=== PATIENT | female | born 1940 | race Caucasian/White ===

== ENCOUNTER → 2016-03-23 | Outpatient (CLI) | payer BC ==
[~2016-03-23] MED LIST: ASPCH81; ASPI81TA28 PO; ATOR-22 PO; CALC-342 PO; FLNIN NAE; FLUT0.15 NAE; LEVO75TA PO; LSN25 PO; MELO7.5T6 PO; METO50TA16 PO; MULT-506 PO; PLV75 PO
== END | disposition home or self-care (01) ==
LOC: C.LABSPEC 12:45
PROVIDERS: ATTEND Internal Medicine
DX: D64.9 Anemia, unspecified (principal)

== ENCOUNTER → 2016-06-02 | Outpatient (CLI) | payer BC ==
--- NOTE | 2016-06-02 14:00 | MAMMOGRAPHY REPORT ---
BILATERAL DIGITAL SCREENING MAMMOGRAM WITH CAD: 06/02/2016 CLINICAL HISTORY: Routine screening. Patient has no complaints. TECHNIQUE: Bilateral CC and MLO views were obtained. Current study was also evaluated with a Compu ter Aided Detection (CAD) system. COMPARISON: Comparison is made to exams dated: 05/31/2015 mammogram, 05/26/2013 mammogram, 05/29/2014 ma mmogram, 04/12/2010 mammogram, 04/09/2009 mammogram - [facility], and 04/06/2008. BREAST COMPOSITION: There are scattered areas of fibroglandular density in both breasts. FINDINGS: There are moderate vascular calcifications in the breasts. No suspicious mass, architectu ral distortion or cluster of microcalcifications is seen. IMPRESSION: ACR BI-RADS CATEGORY 1: NEGATIVE There is no mammographic evidence of malignancy. A 1 year screening mammogram is recommended. The p atient will receive written notification of the results. Approximately 10% of breast cancers are not detected with mammography. A negative mammographic repor t should not delay biopsy if a clinically suggestive mass is present. Johanne Nolan M.D. ay/:06/02/2016 12:31:02 Copying Machine Repairer: Kadie CUI(R)(M), [facility] letter sent: Normal 1/2 BI-RADS Code: ACR BI-RADS Category 1: Negative
== END | disposition home or self-care (01) ==
LOC: C.MAMM 10:22
PROVIDERS: ATTEND Internal Medicine
DX: Z12.31 Encounter for screening mammogram for malignant neoplasm of breast (principal)

== ENCOUNTER → 2016-07-08 | Outpatient (CLI) | payer BC ==
[2016-07-08 12:07] LABS: BASO % 0.6 %; BASO ABS # 0.03 K/uL (0-0.2); COMPLETE YES; EOS % 1.6 %; LYMPH % 35.2 %; LYMPH ABS # 1.73 K/uL (1.2-3.4); MEAN CELL VOLUME 93.1 fL (80-100); MEAN CORPUSCULAR HGB CONC 33.3 g/dl (32-36); MEAN PLATELET VOLUME 11.1 fL (7.4-10.4); MONO % 9.6 %; PLATELET COUNT 176 K/uL (130-400); RED BLOOD COUNT 4.19 M/uL (4.2-5.4); WHITE BLOOD COUNT 4.91 K/uL (4.8-10.8)
== END | disposition home or self-care (01) ==
LOC: C.LABBFT 08:30
PROVIDERS: ATTEND Internal Medicine
DX: D64.9 Anemia, unspecified (principal)

== ENCOUNTER → 2016-09-11 | Outpatient (CLI) | payer BC ==
[2016-09-11 17:42] LABS: BASO % 0.4 %; BASO ABS # 0.02 K/uL (0-0.2); COMPLETE YES; EOS % 2.1 %; HEMATOCRIT 40.4 % (37-47); IG% 0.2 %; LYMPH % 30.1 %; LYMPH ABS # 1.68 K/uL (1.2-3.4); MEAN CELL VOLUME 92.9 fL (80-100); MEAN CORPUSCULAR HEMOGLOBIN 29.9 pg (25-34); MEAN CORPUSCULAR HGB CONC 32.2 g/dl (32-36); MEAN PLATELET VOLUME 11.3 fL (7.4-10.4); MONO % 9.5 %; NEUT % 57.7 %; PLATELET COUNT 196 K/uL (130-400); RED BLOOD COUNT 4.35 M/uL (4.2-5.4); WHITE BLOOD COUNT 5.59 K/uL (4.8-10.8)
[2016-09-11 18:26] LABS: ALB/GLOB RATIO 1.3 (0.9-2); ALKALINE PHOSPHATASE 57 U/L (45-117); ALT/SGPT 23 U/L (12-78); AST/SGOT 18 U/L (15-37); BLOOD UREA NITROGEN 12 mg/dl (7-18); BUN/CREATININE RATIO 12.4 (10-20); CALCIUM 9.9 mg/dl (8.5-10.1); CARBON DIOXIDE 29 mmol/L (21-32); CHLORIDE 103 mmol/L (98-107); CHOLESTEROL 166 mg/dl (0-200); CHOLESTEROL/HDL RATIO 2.7; CREATININE 0.94 mg/dl (0.60-1.20); GLUCOSE 113 mg/dl (70-99); HDL CHOLESTEROL 62 mg/dl; LDL CHOLESTEROL CALCULATED 86 mg/dl; POTASSIUM 4.2 mmol/L (3.5-5.1); SODIUM 141 mmol/L (136-145); TRIGLYCERIDES 91 mg/dl (0-150); VERY LOW DENSITY LIPOPROT CALC 18 mg/dl
[2016-09-11 18:32] LABS: THYROID STIMULATING HORMONE 0.878 uIu/ml (0.300-4.500)
== END | disposition home or self-care (01) ==
LOC: C.LABBFT 12:23
PROVIDERS: ATTEND Internal Medicine
DX: E78.5 Hyperlipidemia, unspecified (principal); I10 Essential (primary) hypertension; E03.9 Hypothyroidism, unspecified

== ENCOUNTER 2016-09-18 09:06 | Inpatient (IN) | payer BC, OTHER ==
[~2016-09-18] VITALS: Ht 149.9 cm; Wt 55.1 kg
[~2016-09-18 09:06] MED LIST changes: -ASPI81TA28 PO; -FLUT0.15 NAE; -LSN25 PO; -PLV75 PO
[2016-09-18 09:23] LABS: BASO % 0.3 %; BASO ABS # 0.02 K/uL (0-0.2); COMPLETE YES; EOS % 1.9 %; HEMATOCRIT 39.8 % (37-47); LYMPH % 43.1 %; LYMPH ABS # 2.55 K/uL (1.2-3.4); MEAN CELL VOLUME 88.8 fL (80-100); MEAN CORPUSCULAR HEMOGLOBIN 30.6 pg (25-34); MEAN CORPUSCULAR HGB CONC 34.4 g/dl (32-36); MEAN PLATELET VOLUME 10.8 fL (7.4-10.4); MONO % 7.8 %; NEUT % 46.9 %; PLATELET COUNT 180 K/uL (130-400); RED BLOOD COUNT 4.48 M/uL (4.2-5.4); WHITE BLOOD COUNT 5.91 K/uL (4.8-10.8)
[2016-09-18 09:33] LABS: ALT/SGPT 23 U/L (12-78); BLOOD UREA NITROGEN 12 mg/dl (7-18); BUN/CREATININE RATIO 10.7 (10-20); CALCIUM 9.6 mg/dl (8.5-10.1); CARBON DIOXIDE 23 mmol/L (21-32); CHLORIDE 106 mmol/L (98-107); GLUCOSE 140 mg/dl (70-99); MAGNESIUM 2.1 mg/dl (1.8-2.4); POTASSIUM 3.3 mmol/L (3.5-5.1); SODIUM 140 mmol/L (136-145)
[2016-09-18 09:34] LABS: PARTIAL THROMBOPLASTIN RATIO 1.1; PROTHROMBIN TIME (PATIENT) 10.2 SECONDS (9.0-12.0)
[2016-09-18 09:41] LABS: ALKALINE PHOSPHATASE 58 U/L (45-117); AST/SGOT 20 U/L (15-37); CKMB/CK RATIO 1.2 (0-3.0); THYROID STIMULATING HORMONE 0.554 uIu/ml (0.300-4.500)
[2016-09-18] MEDS ORDERED: ASPI81TA28 PO (09:42)
[2016-09-18] MEDS ORDERED: FLUT0.15 NAE (09:42)
--- NOTE | 2016-09-18 09:42 | DIAGNOSTIC IMAGING REPORT ---
HEAD CT NONCONTRAST CT DOSE: 1035.43 mGy.cm HISTORY: Trauma fall TECHNIQUE: Multiaxial CT images of the head were performed without the use of intravenous contrast. Comparison: 12/03/2012 Findings: The paranasal sinuses and mastoid air cells are clear. The calvarium and skull base are intact. The ventricles and sulci are within normal limits. There is no mass, hematoma, midline shift, or acute infarct. Impression: No acute intracranial abnormality. Electronically signed by: Stanislav Pepper M.D. 09/18/2016 9:40 AM Dictated Date/Time: 09/18/2016 9:39 AM
--- NOTE | 2016-09-18 09:44 | DIAGNOSTIC IMAGING REPORT ---
CERVICAL SPINE CT CT DOSE: HISTORY: Trauma. Pain. fall TECHNIQUE: Multiaxial CT images of the cervical spine were performed and reformatted in the sagittal and coronal plane without the use of contrast. COMPARISON: None. FINDINGS: Grade 1 anterolisthesis C3 and C4. Grade 1 retrolisthesis C4 and C5. These appear to be secondary to degenerative changes of posterior limits. Moderate degenerative disc changes throughout. No evidence for compression deformity. No evidence for subluxation. IMPRESSION: Degenerative change. No acute bony abnormality. Electronically signed by: Stanislav Pepper M.D. 09/18/2016 9:43 AM Dictated Date/Time: 09/18/2016 9:41 AM
[2016-09-18] MEDS ORDERED: ONDANSETRON INJ 2 MG/ML 2 ML VIAL IV STA (09:45)
[2016-09-18] MEDS ORDERED: MoRPHine SULFATE 4 MG/ML 1 ML CARP\\VIAL IV PRN ×2 (09:45→14:00)
--- NOTE | 2016-09-18 11:05 | DIAGNOSTIC IMAGING REPORT ---
LUMBAR SPINE CT CT DOSE: 577.17 mGy.cm HISTORY: Trauma fall, LBP, leg weakness TECHNIQUE: Multiaxial CT images of the lumbar spine were performed and reformatted in the sagittal and coronal plane without the use of contrast. COMPARISON: None. FINDINGS: No fractures. No subluxation. Paraspinal soft tissues are unremarkable. Mild degenerative change throughout IMPRESSION: No fractures within the lumbar spine. Electronically signed by: Stanislav Pepper M.D. 09/18/2016 11:03 AM Dictated Date/Time: 09/18/2016 11:02 AM
--- NOTE | 2016-09-18 11:15 | DIAGNOSTIC IMAGING REPORT ---
CHEST 2 VIEWS ROUTINE HISTORY: Generalized abdominal pain. COMPARISON: Chest 11/23/2014. FINDINGS: The heart is normal in size. No pleural effusions. No pneumothorax. Mild diffuse interstitial thickening, unchanged. No new focal lung consolidations to suggest pneumonia. No evidence for pulmonary edema. IMPRESSION: No significant change compared to the prior study. No acute process. Electronically signed by: Jonas Caballero M.D. 09/18/2016 11:14 AM Dictated Date/Time: 09/18/2016 11:12 AM
[2016-09-18 12:17] LABS: LYME DISEASE AB IGG NEG (NEG); LYME DISEASE AB IGM NEG (NEG)
[2016-09-18 13:44] VITALS: BP 169/66; PULSE 58; TEMP 37.4; O2SAT 98; Ht 149.9 cm; Wt 55.1 kg
--- NOTE | 2016-09-18 13:48 | EMERGENCY ROOM VISIT NOTE ---
History Report prepared by Yonis: Brinana Salas Under the Supervision of: Dr. Anders Roberts D.O. First contact with patient: 09:07 Stated Complaint: FALL/ BACK PAIN/ TINGLING-NUMBNESS WITH LEGS History of Present Illness The patient is a 75 year old female who presents to the Emergency Room with complaints of an episode of a fall occurring just prior to arrival. The patient states that this has happened before. She states that she visited her PCP who told her if it happens again to call 911. The patient reports that she feels weak and numb before falling. She reports that this morning she fell from it. The patient denies any loss of consciousness or hitting her head. She states that she is currently experiencing back pain and neck pain. The patient denies chest pain and shortness of breath. Source of History: patient Onset: prior to arrival Position: other (global) Quality: other (global) Timing: other (episode) Associated Symptoms: + neck pain, + back pain, + weakness, + numbness, No LOC, No chest pain, No SOB Note: The patient denies hitting her head. Review of Systems See HPI for pertinent positives & negatives. A total of 10 systems reviewed and were otherwise negative. Past Medical & Surgical Medical Problems: (1) Hyperlipidemia Nec/Nos (2) Hypertension Nos (3) Hypopotassemia (4) Neurocardiogenic pre-syncope (5) Osteoporosis Nos (6) Radicular leg pain Family History No pertinent family history Social History Smoking Status: Never Smoker Drug Use: none Housing Status: lives alone Occupation Status: retired Current/Historical Medications Scheduled Aspirin (Aspirin Ec), 81 MG PO DAILY Atorvastatin (Lipitor), 20 MG PO HS Calcium Carbonate-Vitamin D (Calcium 600+D), 1 TAB PO DAILY Fluticasone Propionate (Nasal) (Flonase Allergy Relief), 2 SPRAYS GLORIA DAILY Levothyroxine Sodium (Synthroid), 75 MCG PO DAILY Metoprolol Tartrate (Lopressor) (Lopressor), 50 MG PO BID Multivitamin (Multivitamin), 1 TAB PO DAILY Allergies Coded Allergies: Amoxicillin (Verified Allergy, Mild, unknown, from dr claudio's h&p, ) Clavulanic Acid (Verified Allergy, Mild, unknown, from dr claudio's h&p, ) Pneumococcal Vaccine (Verified Allergy, Mild, 09/18/16) Clarithromycin (Verified Allergy, Unknown, 09/18/16) Physical Exam Vital Signs Date Time Temp Pulse Resp B/P (MAP) Pulse Ox O2 Delivery O2 Flow Rate FiO2 09/18/16 13:44 37.4 58 18 169/66 98 Nasal Cannula 2.0 09/18/16 12:47 59 16 144/79 98 Nasal Cannula 2.0 09/18/16 11:19 59 16 167/74 98 Room Air 09/18/16 10:21 97 Nasal Cannula 2.0 09/18/16 09:21 73 09/18/16 09:15 36.6 85 20 166/126 100 Room Air Physical Exam GENERAL: Patient is awake, alert, and mildly anxious appearing. The patient appears uncomfortable. A rigid cervical collar was placed. EYES: The conjunctivae are clear. The pupils are round and reactive. EARS, NOSE, MOUTH AND THROAT: The nose is without any evidence of any deformity. Mucous membranes are moist tongue is midline NECK: The neck is nontender and supple. The cervical collar remains in place. RESPIRATORY: Normal respiratory effort is noted there is no evidence of wheezing rhonchi or rales CARDIOVASCULAR: Regular rate and rhythm noted there no murmurs rubs or gallops normal S1 normal S2 GASTROINTESTINAL: The abdomen is soft. Bowel sounds are present in all quadrants. Abdomen is nontender BACK: No midline tenderness or step-off noted range of motion in flexion extension as well as rotation no signs of muscle spasm noted. Low lumbar tenderness to palpation, range of motion limited secondary to pain. MUSCULOSKELETAL/EXTREMITIES: There is no evidence of gross deformity full range of motion is noted in the hips and shoulders SKIN: There is no obvious evidence of any rash. There are no petechiae, pallor or cyanosis noted. Pulses were symmetric in both lower extremities. NEUROLOGIC: Patient is awake alert and oriented x3. Strength is greatly diminished. Patellar reflexes are absent bilaterally. The patient was unable to bring legs off the bed. Medical Decision & Procedures ER Provider Diagnostic Interpretation: Radiology results as stated below per my review and radiologist interpretation: LUMBAR SPINE CT CT DOSE: 577.17 mGy.cm HISTORY: Trauma fall, LBP, leg weakness TECHNIQUE: Multiaxial CT images of the lumbar spine were performed and reformatted in the sagittal and coronal plane without the use of contrast. COMPARISON: None. FINDINGS: No fractures. No subluxation. Paraspinal soft tissues are unremarkable. Mild degenerative change throughout IMPRESSION: No fractures within the lumbar spine. Electronically signed by: Stanislav Pepper M.D. 09/18/2016 11:03 AM Dictated Date/Time: 09/18/2016 11:[address] CT DOSE: 1035.43 mGy.cm HISTORY: Trauma fall TECHNIQUE: Multiaxial CT images of the head were performed without the use of intravenous contrast. Comparison: 12/03/2012 Findings: The paranasal sinuses and mastoid air cells are clear. The calvarium and skull base are intact. The ventricles and sulci are within normal limits. There is no mass, hematoma, midline shift, or acute infarct. Impression: No acute intracranial abnormality. Electronically signed by: Stanislav Pepper M.D. 09/18/2016 9:40 AM Dictated Date/Time: 09/18/2016 9:39 AM CHEST 2 VIEWS ROUTINE HISTORY: Generalized abdominal pain. COMPARISON: Chest 11/23/2014. FINDINGS: The heart is normal in size. No pleural effusions. No pneumothorax. Mild diffuse interstitial thickening, unchanged. No new focal lung consolidations to suggest pneumonia. No evidence for pulmonary edema. IMPRESSION: No significant change compared to the prior study. No acute process. Electronically signed by: Jonas Caballero M.D. 09/18/2016 11:14 AM Dictated Date/Time: 09/18/2016 11:[address] DOSE: HISTORY: Trauma. Pain. fall TECHNIQUE: Multiaxial CT images of the cervical spine were performed and reformatted in the sagittal and coronal plane without the use of contrast. COMPARISON: None. FINDINGS: Grade 1 anterolisthesis C3 and C4. Grade 1 retrolisthesis C4 and C5. These appear to be secondary to degenerative changes of posterior limits. Moderate degenerative disc changes throughout. No evidence for compression deformity. No evidence for subluxation. IMPRESSION: Degenerative change. No acute bony abnormality. Electronically signed by: Stanislav Pepper M.D. 09/18/2016 9:43 AM Dictated Date/Time: 09/18/2016 9:41 AM Laboratory Results 09/18/16 08:52 Red Blood Count 4.48, Mean Corpuscular Volume 88.8, Mean Corpuscular Hemoglobin 30.6, Mean Corpuscular Hemoglobin Concent 34.4, Mean Platelet Volume 10.8, Neutrophils (%) (Auto) 46.9, Lymphocytes (%) (Auto) 43.1, Monocytes (%) (Auto) 7.8, Eosinophils (%) (Auto) 1.9, Basophils (%) (Auto) 0.3, Neutrophils # (Auto) 2.77, Lymphocytes # (Auto) 2.55, Monocytes # (Auto) 0.46, Eosinophils # (Auto) 0.11, Basophils # (Auto) 0.02 09/18/16 08:52 Test 09/18/16 08:52 White Blood Count 5.91 K/uL (4.8-10.8) Red Blood Count 4.48 M/uL (4.2-5.4) Hemoglobin 13.7 g/dL (12.0-16.0) Hematocrit 39.8 % (37-47) Mean Corpuscular Volume 88.8 fL (80-100) Mean Corpuscular Hemoglobin 30.6 pg (25-34) Mean Corpuscular Hemoglobin Concent 34.4 g/dl (32-36) Platelet Count 180 K/uL (130-400) Mean Platelet Volume 10.8 fL (7.4-10.4) Neutrophils (%) (Auto) 46.9 % Lymphocytes (%) (Auto) 43.1 % Monocytes (%) (Auto) 7.8 % Eosinophils (%) (Auto) 1.9 % Basophils (%) (Auto) 0.3 % Neutrophils # (Auto) 2.77 K/uL (1.4-6.5) Lymphocytes # (Auto) 2.55 K/uL (1.2-3.4) Monocytes # (Auto) 0.46 K/uL (0.11-0.59) Eosinophils # (Auto) 0.11 K/uL (0-0.5) Basophils # (Auto) 0.02 K/uL (0-0.2) RDW Standard Deviation 41.6 fL (36.4-46.3) RDW Coefficient of Variation 13.0 % (11.5-14.5) Immature Granulocyte % (Auto) 0.0 % Immature Granulocyte # (Auto) 0.00 K/uL (0.00-0.02) Erythrocyte Sedimentation Rate 2 mm/hr (0-21) Prothrombin Time 10.2 SECONDS (9.0-12.0) Prothromb Time International Ratio 1.0 (0.9-1.1) Activated Partial Thromboplast Time 27.3 SECONDS (21.0-31.0) Partial Thromboplastin Ratio 1.1 Anion Gap 11.0 mmol/L (3-11) Estimated GFR () 56.5 Estimated GFR (Non- 48.7 BUN/Creatinine Ratio 10.7 (10-20) Calcium Level 9.6 mg/dl (8.5-10.1) Magnesium Level 2.1 mg/dl (1.8-2.4) Total Bilirubin 0.3 mg/dl (0.2-1) Direct Bilirubin < 0.1 mg/dl (0-0.2) Aspartate Amino Transf (AST/SGOT) 20 U/L (15-37) Alanine Aminotransferase (ALT/SGPT) 23 U/L (12-78) Alkaline Phosphatase 58 U/L (45-117) Total Creatine Kinase 100 U/L (26-192) Creatine Kinase MB 1.2 ng/ml (0.5-3.6) Creatine Kinase MB Ratio 1.2 (0-3.0) Troponin I < 0.015 ng/ml (0-0.045) C-Reactive Protein < 0.29 mg/dl (0-0.29) Total Protein 7.4 gm/dl (6.4-8.2) Albumin 4.0 gm/dl (3.4-5.0) Lipase 290 U/L (73-393) Thyroid Stimulating Hormone (TSH) 0.554 uIu/ml (0.300-4.500) Free Thyroxine 1.51 ng/dl (0.80-1.60) Lyme Disease IgG Antibody NEG (NEG) Lyme Disease IgM Antibody NEG (NEG) Laboratory results per my review. Medications Administered Medications (Trade) Dose Ordered Sig/Ana Route Start Time Stop Time Status Last Admin Dose Admin Morphine Sulfate (MoRPHine SULFATE INJ) 4 mg Q15M PRN IV 09/18/16 09:45 09/18/16 15:03 DC 09/18/16 09:54 4 MG Ondansetron HCl (Zofran Inj) 4 mg NOW STAT IV 09/18/16 09:45 09/18/16 09:46 DC 09/18/16 09:54 4 MG Sodium Chloride 1,000 ml @ 80 mls/hr [id number] IV 09/18/16 13:47 10/18/16 13:46 09/18/16 15:43 80 MLS/HR ECG Indication: weakness Rate (beats per minute): 75 Rhythm: normal sinus Findings: ST depression (diffuse), no ectopy Comparison ECG Date: May 22, 2009 Change: no significant change ED Course 0907: The patient was evaluated in room A12. A complete history and physical examination were performed. 0945: Ordered Zofran Inj 4 mg IV, Morphine Sulfate 4 mg PRN IV pain. 1049: I revaluated the patient and she was resting comfortably. 1142: I discussed the patient's case with Dr. Harley. The patient will be evaluated for further management. Medical Decision Medication Reconciliation: I attest that I have personally reviewed the patient' s current medications list. Patient was found to have a slightly elevated blood pressure due to circumstances. I do not believe that the patient requires hypertension monitoring. Differential diagnosis: Etiologies such as musculoskeletal, disc herniation, fracture, aortic disease, metastatic disease, cord compression, discitis, infection, renal colic, gastrointestinal, acute exacerbation of chronic back pain, sciatica, cauda equina, as well as others were entertained. The patient is a 75-year-old female who presented to the emergency department for a fall. The patient has been having problems recently where she has intermittent weakness in her lower extremities. The patient was seen by her primary care physician recently for these symptoms and was told to go to the emergency department if symptoms return. The patient appeared to have significant weakness in both lower extremities. She had no headache. She did not have significant neck pain in her neck was cleared radiographically in the emergency department. I discussed the patient's laboratory and radiographic studies with her. She had significant lower back pain but CT of the lumbar spine showed no acute fracture. The patient has severe symptoms at this time and I cannot imagine that the symptoms were this severe when she follow-up with her primary care physician previously. The patient apparently went on a bus trip recently and had no problems ambulating at that time. Given the patient's age and comorbidities I discussed this case with the on-call [facility] hospitalist. They've agreed to evaluate the patient in emergency department for further management and disposition. Certainly I feel the patient may require further workup to evaluate the cause of this intermittent lower extremity weakness. An MRI may be useful as well. Consults Time Called: 1140 Consulting Physician: Dr. Harley. Returned Call: 114 I discussed the patient's case with Dr. Harley. The patient will be evaluated for further management. Impression Primary Impression: Low back pain Additional Impressions: Lower extremity weakness Falls Abnormal ECG Scribe Attestation The scribe's documentation has been prepared under my direction and personally reviewed by me in its entirety. I confirm that the note above accurately reflects all work, treatment, procedures, and medical decision making performed by me. Departure Information Dispostion Being Evaluated By Hospitalist Referrals Mark Claudio M.D. (PCP) Problem Qualifiers Primary Impression: Low back pain Chronicity: acute Back pain laterality: midline Sciatica presence: with sciatica Sciatica laterality: bilateral sciatica Qualified Codes: M54.42 - Lumbago with sciatica, left side; M54.41 - Lumbago with sciatica, right side Additional Impressions: Lower extremity weakness Laterality: bilateral Qualified Codes: R29.898 - Other symptoms and signs involving the musculoskeletal system Falls Encounter type: initial encounter Qualified Codes: W19.XXXA - Unspecified fall, initial encounter
[2016-09-18] MEDS ORDERED: ACETAMINOPHEN 325 MG TAB PO PRN (14:00)
[2016-09-18] MEDS ORDERED: MAGNESIUM HYDROXIDE SUSP 30 ML UDC PO PRN (14:00)
[2016-09-18] MEDS ORDERED: ONDANSETRON INJ 2 MG/ML 2 ML VIAL IV PRN (14:00)
[2016-09-18] MEDS ORDERED: ALUMINUM/MAGNESIUM/SIMETH (MAALOX MAX) 30 ML UDC PO PRN (14:00)
--- NOTE | 2016-09-18 14:14 | History and Physical ---
History & Physical Date & Time of Service: Sep 18, 2016 at 13:56 Chief Complaint: Fall/ Back Pain/ Tingling-Numbness With Legs Primary Care Physician: Mark Villagran M.D. History of Present Illness Source: patient, family 75-year-old female who presents to the ER by ambulance after having an episode of near loss of consciousness associated with leg weakness, leg pain, and back pain. The patient was in her normal state of health when she awoke this morning and walks to her kitchen to have breakfast after sitting at the table she felt a tightness in the anterior aspect of both legs, she says she knew something was "wrong" and tried to get up. Her first attempted rising she is unsuccessful and during that attempt she said she felt funny in her head when she is going to pass out her second attempt she got up and was wobbly on her feet she felt like she is near passing out permitted to a phone and called her daughter, she then attempted to call 911 but fell to the ground leaving the following the counter of her kitchen. The patient denies complete loss of consciousness or injury with a fall, when her daughter arrived she cannot stand under her own power or even uncross her legs which were in a scissor position, she was brought to the emergency department with the funny feeling in her head improved bilateral leg weakness persists, and there is even a reproducible mechanical component with sitting which radiates pain down the medial aspect of her left leg to her great toe. Evaluation in the ER included imaging of her cervical spine and lumbar spine and head these were unremarkable for any significant changes serology including a Lyme titer and sedimentation rate which were unremarkable with the exception of hypokalemia, cardiac monitoring showing sinus rhythm without any evidence of positive or ectopy. The patient has profound leg weakness and cannot stand or bear weight she is no loss of continence of bowel or bladder although typically has some urinary incontinence which has not changed recently and one day prior to presenting to the ER she got a bus trip to [place] and walk around without difficulty. She' ll be admitted to our facility for further evaluation Past Medical/Surgical History Medical Problems: (1) Hyperlipidemia Nec/Nos Status: Chronic (2) Hypertension Nos Status: Chronic (3) Hypopotassemia Status: Resolved (4) Osteoporosis Nos Status: Chronic Hypothyroidism Previous diverticulitis with partial colectomy Appendectomy Osteoporosis Family History No pertinent family history High blood pressure and thyroid Social History Smoking Status: Never Smoker Drug Use: none Occupational Status: retired Immunizations History of Influenza Vaccine: No History of Tetanus Vaccine?: Yes History of Pneumococcal: ALLERGIC TO PNEUMOVAX History of Hepatitis B Vaccine: No Multi-Drug Resistant Organisms History of MDRO: No Allergies Coded Allergies: Amoxicillin (Verified Allergy, Mild, unknown, from dr villagran's h&p, ) Clavulanic Acid (Verified Allergy, Mild, unknown, from dr jefferss h&p, ) Pneumococcal Vaccine (Verified Allergy, Mild, 09/18/16) Clarithromycin (Verified Allergy, Unknown, 09/18/16) Home Medications Scheduled Aspirin (Aspirin Ec), 81 MG PO DAILY Atorvastatin (Lipitor), 20 MG PO HS Calcium Carbonate-Vitamin D (Calcium 600+D), 1 TAB PO DAILY Fluticasone Propionate (Nasal) (Flonase Allergy Relief), 2 SPRAYS GLORIA DAILY Levothyroxine Sodium (Synthroid), 75 MCG PO DAILY Metoprolol Tartrate (Lopressor) (Lopressor), 50 MG PO BID Multivitamin (Multivitamin), 1 TAB PO DAILY Review of Systems ROS: well nourished well developed No double vision blurry vision No problems with speech or swallowing No palpitations, chest pain or pressure Wheezing or breathing issues No abdominal pain nausea vomiting diarrhea changes in appetite or weight No burning urine urine frequency or changes in color, but she does have baseline incontinence This patient has pain in both legs worse on the left radiating to her great toe No skin rashes gross oral lesions No unusual bruising or bleeding This patient is focused back pain around her belt line but centrally located in the back with radiation down the inner legs and feet left greater than right she also cannot lift her legs against gravity No changes in memory or confusion although she felt funny in her head she is completely regained her baseline Physical Exam Vital Signs Date Time Temp Pulse Resp B/P (MAP) Pulse Ox O2 Delivery O2 Flow Rate FiO2 09/18/16 12:47 59 16 144/79 98 Nasal Cannula 2.0 09/18/16 11:19 59 16 167/74 98 Room Air 09/18/16 10:21 97 Nasal Cannula 2.0 09/18/16 09:21 73 09/18/16 09:15 36.6 85 20 166/126 100 Room Air General Appearance: WD/WN, + moderate distress Head: normocephalic, atraumatic Eyes: PERRL (pupils are small and pinpoint which he uses eyedrops), EOMI ENT: hearing grossly normal, pharynx normal, + pertinent finding (she has good elevation of her uvula and palate) Neck: supple, no adenopathy, no JVD, trachea midline Respiratory/Chest: chest non-tender, lungs clear, normal breath sounds Cardiovascular: regular rate, rhythm, no murmur Abdomen/GI: normal bowel sounds, soft, + pertinent finding (mild reproducible tenderness in the right lower quadrant there is no guarding or acute abdomen) Back: normal inspection, no CVA tenderness, no muscle spasm, + pertinent finding (there is no point tenderness to exam) Extremities/Musculoskelatal: normal inspection, no calf tenderness, normal capillary refill, no pedal edema Neurologic/Psych: alert, oriented x 3, + pertinent finding (the patient has absent reflexes at the patella is unclear she's extinguishing them she cannot lift her legs off the bed having her sit forward sends radicular pain down her left leg) Skin: normal color, warm/dry, no rash Diagnostics Laboratory Results Results Past 24 Hours Test 09/18/16 08:52 Range/Units White Blood Count 5.91 4.8-10.8 K/uL Red Blood Count 4.48 4.2-5.4 M/uL Hemoglobin 13.7 12.0-16.0 g/dL Hematocrit 39.8 37-47 % Mean Corpuscular Volume 88.8 80-100 fL Mean Corpuscular Hemoglobin 30.6 25-34 pg Mean Corpuscular Hemoglobin Concent 34.4 32-36 g/dl Platelet Count 180 130-400 K/uL Mean Platelet Volume 10.8 7.4-10.4 fL Neutrophils (%) (Auto) 46.9 % Lymphocytes (%) (Auto) 43.1 % Monocytes (%) (Auto) 7.8 % Eosinophils (%) (Auto) 1.9 % Basophils (%) (Auto) 0.3 % Neutrophils # (Auto) 2.77 1.4-6.5 K/uL Lymphocytes # (Auto) 2.55 1.2-3.4 K/uL Monocytes # (Auto) 0.46 0.11-0.59 K/uL Eosinophils # (Auto) 0.11 0-0.5 K/uL Basophils # (Auto) 0.02 0-0.2 K/uL RDW Standard Deviation 41.6 36.4-46.3 fL RDW Coefficient of Variation 13.0 11.5-14.5 % Immature Granulocyte % (Auto) 0.0 % Immature Granulocyte # (Auto) 0.00 0.00-0.02 K/uL Erythrocyte Sedimentation Rate 2 0-21 mm/hr Prothrombin Time 10.2 9.0-12.0 SECONDS Prothromb Time International Ratio 1.0 0.9-1.1 Activated Partial Thromboplast Time 27.3 21.0-31.0 SECONDS Partial Thromboplastin Ratio 1.1 Sodium Level 140 136-145 mmol/L Potassium Level 3.3 3.5-5.1 mmol/L Chloride Level 106 98-107 mmol/L Carbon Dioxide Level 23 21-32 mmol/L Anion Gap 11.0 3-11 mmol/L Blood Urea Nitrogen 12 7-18 mg/dl Creatinine 1.10 0.60-1.20 mg/dl Estimated GFR () 56.5 Estimated GFR (Non- 48.7 BUN/Creatinine Ratio 10.7 10-20 Random Glucose 140 70-99 mg/dl Calcium Level 9.6 8.5-10.1 mg/dl Magnesium Level 2.1 1.8-2.4 mg/dl Total Bilirubin 0.3 0.2-1 mg/dl Direct Bilirubin < 0.1 0-0.2 mg/dl Aspartate Amino Transf (AST/SGOT) 20 15-37 U/L Alanine Aminotransferase (ALT/SGPT) 23 12-78 U/L Alkaline Phosphatase 58 45-117 U/L Total Creatine Kinase 100 26-192 U/L Creatine Kinase MB 1.2 0.5-3.6 ng/ml Creatine Kinase MB Ratio 1.2 0-3.0 Troponin I < 0.015 0-0.045 ng/ml C-Reactive Protein < 0.29 0-0.29 mg/dl Total Protein 7.4 6.4-8.2 gm/dl Albumin 4.0 3.4-5.0 gm/dl Lipase 290 73-393 U/L Thyroid Stimulating Hormone (TSH) 0.554 0.300-4.500 uIu/ml Free Thyroxine 1.51 0.80-1.60 ng/dl Lyme Disease IgG Antibody NEG NEG Lyme Disease IgM Antibody NEG NEG Diagnostic Radiology CT scan of her head and cervical spine and lumbar spine are without significant abnormalities to explain her symptoms CXR normal Impression Assessment and Plan 75-year-old female with presyncope and bilateral radicular leg pain and numbness , associated weakness and inability to stand but no loss of continence of bowel or bladder over baseline Presyncope we will maintain her metoprolol and have her in telemetry unit For radicular pain supply parenteral opiates to control her pain and pursue an MRI of her thoracic and lumbar spine if these do not show mechanical nature to her pain we will consult neurology I believe Dr. Monte is on this week, if these images show a mechanical nature to her spine we'll ask the patient to choose a spine surgeon to evaluate. We may consider applying steroids once results of these tests are resulted Regarding her hypokalemia this will be augmented by oral medications and magnesium will be followed in the morning Regarding her thyroid she is clinically euthyroid we'll maintain her Synthroid Heparin will be used for DVT prevention I placed the patient is a full code she'll does not want any heroic measures if there is no hope Resuscitation Status FULL RESUSCITATION VTE Prophylaxis VTE Risk Assessment Done? Y/N: Yes Risk Level: Moderate Given or contraindicated: Unfractionated heparin SQ
[2016-09-18] MEDS: SODIUM CHLORIDE 0.9% 1000ML 1,000 ML IV SCH (15:43)
[2016-09-18 16:00] VITALS: O2SAT 98
[2016-09-18 19:52] VITALS: BP 156/58; PULSE 63; TEMP 37.2; O2SAT 95
[2016-09-18 20:00] VITALS: O2SAT 95
[2016-09-18] MEDS: ATORVASTATIN 20 MG TAB PO SCH (20:49)
[2016-09-18] MEDS: POTASSIUM CHLORIDE 20 MEQ TABCR PO SCH (20:50)
[2016-09-18] MEDS: METOPROLOL TARTRATE 50 MG TAB PO SCH (20:50)
[2016-09-18] MEDS: HEPARIN SOD 5000 UNIT/0.5 ML CARP SQ SCH (20:52)
[2016-09-19] VITALS (8 sets, daily range): BP systolic 113–163; BP diastolic 52–81; PULSE 56–65; TEMP 36.6–37.3; O2SAT 90–98
[2016-09-19] MEDS ORDERED: GADAVIST IV PRN (00:15)
[2016-09-19] MEDS: MoRPHine SULFATE 2 MG/ML CARP IV PRN ×2 (00:45→09:56)
[2016-09-19] MEDS: SODIUM CHLORIDE 0.9% 1000ML 1,000 ML IV SCH (02:31)
[2016-09-19] MEDS: OXYCODONE HCL IR 5 MG TAB (IMMEDIATE RELEASE) PO PRN ×2 (02:31→22:29)
[2016-09-19 03:05] LABS: URINE APPEARANCE CLOUDY (CLEAR); URINE BILIRUBIN NEG (NEG); URINE COLOR YELLOW; URINE NITRITE NEG (NEG); URINE PH 7.5 (4.5-7.5); URINE SPECIFIC GRAVITY 1.011 (1.000-1.030); UROBILINOGEN NEG (NEG)
[2016-09-19 03:17] LABS: MANUAL MICROSCOPIC REQUIRED? NO; REVIEW REQ? NO
[2016-09-19] MEDS: LEVOTHYROXINE 75 MCG TAB PO SCH (05:53)
[2016-09-19 06:43] LABS: MEAN CELL VOLUME 91.3 fL (80-100); MEAN CORPUSCULAR HEMOGLOBIN 29.3 pg (25-34); MEAN CORPUSCULAR HGB CONC 32.1 g/dl (32-36); MEAN PLATELET VOLUME 10.6 fL (7.4-10.4); PLATELET COUNT 146 K/uL (130-400); RED BLOOD COUNT 4.16 M/uL (4.2-5.4); WHITE BLOOD COUNT 6.64 K/uL (4.8-10.8)
[2016-09-19 07:08] LABS: BUN/CREATININE RATIO 17.2 (10-20); CREATININE 0.75 mg/dl (0.60-1.20); MAGNESIUM 2.3 mg/dl (1.8-2.4); POTASSIUM 4.1 mmol/L (3.5-5.1)
[2016-09-19 07:30] LABS: CALCIUM 8.5 mg/dl (8.5-10.1)
--- NOTE | 2016-09-19 07:37 | DIAGNOSTIC IMAGING REPORT ---
LUMBAR SPINE MRI WITH AND WITHOUT CONTRAST HISTORY: Radicular pain. Neuropathy. radicular leg pain L>R to L great toe TECHNIQUE: Multiplanar multisequence MRI of the lumbar spine was performed both before and after the intravenous administration of contrast. COMPARISON: CT lumbar spine same date FINDINGS: For the purpose of the report the L5-S1 disc space will be located on axial image of 30. Moderate degenerative disc change throughout the entire lumbar region. Signal characteristics the vertebral bodies are unremarkable. No major space-occupying lesion. No bone marrow replacing process. Bulging discs at all levels. L1-L2: Minimal broad-based disc bulge. Neuroforamina are patent bilaterally L2-L3: Broad-based mild disc herniation. Mild impact left anterior thecal sac. Mild narrowing left to lesser extent right neuroforamina. L3-L4: Minimal broad-based disc bulge. Minimal narrowing neuroforamina bilaterally. L4-L5: Mild broad-based disc herniation. Mild impact anterior thecal sac. Mild narrowing left neuroforamina. Moderate degenerative change posterior facets. L5-S1: Left central disc herniation L5-S1. Focal impact anterior thecal sac. Moderate narrowing of the neuroforamina bilaterally. IMPRESSION: 1. Left central disc herniation L5-S1. 2. Mild broad-based disc herniation L4-L5. 3. Bulging discs from L1 through L3. 4. Moderate compromise of multiple neural foramina as described. 5. No evidence for abnormal postcontrast enhancement. Electronically signed by: Stanislav Pepper M.D. 09/19/2016 7:35 AM Dictated Date/Time: 09/19/2016 7:30 AM
--- NOTE | 2016-09-19 07:56 | DIAGNOSTIC IMAGING REPORT ---
THORACIC SPINE MRI WITH AND WITHOUT CONTRAST HISTORY: radicular leg pain L>R TECHNIQUE: Multiplanar multisequence MRI of the thoracic spine was performed both before and after the intravenous administration of contrast. COMPARISON: None. FINDINGS: The distal 3 cm of the spinal cord is mildly expanded and demonstrates abnormal T2 hyperintensity centrally. This has the appearance of a focal cord infarct. Question of a punctate focus of enhancement within the distal cord is seen on sagittal image 7. The proximal to mid thoracic spinal cord image is normal signal intensity. Slight flattening and anterior displacement of the thoracic spinal cord at the T4-T5 level. There is a possible 1 cm T2 hyperintense lesion posteriorly at this location raises the possibility of an arachnoid cyst. However, this also could be due to ulceration artifact and patient positioning. There is mild motion artifact at this location resulting in suboptimal evaluation. This spaces are relatively preserved for age. No disc herniations identified. No significant central canal or neural foraminal narrowing. Mild edema within the bilateral paraspinal muscles seen throughout the majority of the thoracic spine. This is suggestive of muscular strain. IMPRESSION: 1. Mild expansion and abnormal T2 signal centrally within the distal 3 cm of the spinal cord. This is consistent with a focal cord infarct. However, there is suggestion of a punctate focus of enhancement centrally within this focal cord expansion. Therefore, a neoplasm or focal demyelination cannot be entirely excluded but is considered less likely. 2. There are suggestion of mild anterior cord displacement and slight posterior flattening at the T4 and T5 level. This raises the possibility of a 1 cm posterior arachnoid cyst at this level. However, this could be due to the artifact at this location. 3. These findings were discussed with Dr. Serrato at 7:55 AM on 09/19/2016. Electronically signed by: Jonas Caballero M.D. 09/19/2016 9:28 AM Dictated Date/Time: 09/19/2016 7:42 AM
[2016-09-19] MEDS: FLUTICASONE PROPIONATE NA SPR 16 GM BTL NAE SCH (08:56)
[2016-09-19] MEDS: METOPROLOL TARTRATE 50 MG TAB PO SCH ×2 (08:56→20:48)
[2016-09-19] MEDS: CALCIUM 600MG + VIT D 400 IU TAB PO SCH (08:57)
[2016-09-19] MEDS: ASPIRIN 81 MG ECTAB PO SCH (08:58)
[2016-09-19] MEDS: MULTIVITAMIN TAB PO SCH (08:58)
[2016-09-19] MEDS: POTASSIUM CHLORIDE 20 MEQ TABCR PO SCH ×2 (08:58→20:48)
[2016-09-19] MEDS: HEPARIN SOD 5000 UNIT/0.5 ML CARP SQ SCH ×2 (09:00→20:50)
[2016-09-19] MEDS ORDERED: OPTIRAY 320 IV PRN (09:15)
--- NOTE | 2016-09-19 10:41 | Neurology Consultation ---
Neurology Consultation Date of Consultation: Sep 19, 2016. Attending Physician: Nicolas Serrato D.O. Primary Care Physician: Mark Villagran M.D. Reason for Consultation: Consultation for spinal stroke History of Present Illness Source: patient, hospital records This is a 75-year-old female who presents with sudden onset of bilateral leg weakness. She reports that yesterday morning she started to notice that her feet suddenly got cold. She got up to walk and started to have quickly progressive leg weakness. Quickly went to not being able to move her legs at all. She reports that she can't do anything from her waist down. Still appears to have sensation intact with the exception of her feet. Also having urinary incontinence. She reports only having pain with people move her legs and occasional pain in her back. She denies any pain anywhere else. No headaches. She did have an episode 1 week ago with a nonspecific electrical shock feeling down her body. She also reported an episode of shortness of breath when walking to check the mail. No previous episodes of clotting or strokelike events. No recent illnesses. Labs were reviewed. Included a normal ESR and negative Lyme MRI of the T-spine report and images were reviewed by myself. There is an enhancing mass around T4 likely consistent with an arachnoid cyst that is likely incidental. There are subtle cord changes in the lower thoracic region consistent with a likely ischemic process. MRI of the C and L-spine were essentially unremarkable Patient mentioned a new diagnosis of A. fib by her primary care physician last week, but upon review of his clinic note, this does not appear to be a current diagnosis. It looks like it may have been more of a differential diagnosis for her near-syncope event in the past Past Medical/Surgical History Medical Problems: (1) Abnormal ECG Status: Acute (2) Falls Status: Acute (3) Low back pain Status: Acute (4) Lower extremity weakness Status: Acute Past medical history [facility] note for hypertension, dyslipidemia, hypothyroidism, appendectomy. Family History Hypertension, heart attacks, strokes, thyroid Social History Patient is normally independent in her activities of daily living. No tobacco use. Rare alcohol use. No illegal drug use Smoking Status: Never smoker Drug Use: none Housing Status: lives alone Occupation Status: retired Allergies Coded Allergies: Amoxicillin (Verified Allergy, Mild, unknown, from dr villagran's h&p, ) Clavulanic Acid (Verified Allergy, Mild, unknown, from dr villagran's h&p, ) Pneumococcal Vaccine (Verified Allergy, Mild, 09/18/16) Clarithromycin (Verified Allergy, Unknown, 09/18/16) Current Inpatient Medications Current Inpatient Medications Medications (Trade) Dose Ordered Sig/Ana Route Start Time Stop Time Status Last Admin Dose Admin Aspirin (Ecotrin Tab) 81 mg DAILY PO 09/19/16 09:00 10/19/16 08:59 09/19/16 08:58 81 MG Atorvastatin Calcium (Lipitor Tab) 20 mg HS PO 09/18/16 21:00 10/18/16 20:59 09/18/16 20:49 20 MG Fluticasone Propionate (Flonase Nasal [place]) 2 sprays DAILY GLORIA 09/19/16 09:00 10/19/16 08:59 09/19/16 08:56 2 SPRAYS Levothyroxine Sodium (Synthroid Tab) 75 mcg DAILYBB PO 09/19/16 06:00 10/19/16 05:59 09/19/16 05:53 75 MCG Metoprolol Tartrate (Lopressor Tab) 50 mg BID PO 09/18/16 21:00 10/18/16 20:59 09/19/16 08:56 50 MG Multivitamins (Multivitamin Tab) 1 tab DAILY PO 09/19/16 09:00 10/19/16 08:59 09/19/16 08:58 1 TAB Calcium/Vitamin D (Caltrate Plus Tab) 1 tab DAILY PO 09/19/16 09:00 10/19/16 08:59 09/19/16 08:57 1 TAB Heparin Sodium (Porcine) (Heparin Sq 5000 Unit/0.5ml) 5,000 unit Q12 SQ 09/18/16 21:00 10/18/16 20:59 09/19/16 09:00 5,000 UNIT Sodium Chloride 1,000 ml @ 80 mls/hr [id number] IV 09/18/16 13:47 10/18/16 13:46 09/19/16 02:31 80 MLS/HR Acetaminophen (Tylenol Tab) 650 mg Q4H PRN PO 09/18/16 14:00 10/18/16 13:59 Al Hydrox/Mg Hydrox/Simethicone (Maalox Max Susp) 15 ml Q4H PRN PO 09/18/16 14:00 10/18/16 13:59 Magnesium Hydroxide (Milk Of Magnesia Susp) 30 ml Q12H PRN PO 09/18/16 14:00 10/18/16 13:59 Ondansetron HCl (Zofran Inj) 4 mg Q6H PRN IV 09/18/16 14:00 10/18/16 13:59 Polyethylene (Miralax Powder Packet) 17 gm DAILY PRN PO 09/18/16 14:00 10/18/16 13:59 Morphine Sulfate (MoRPHine SULFATE INJ) 2 mg Q4H PRN IV 09/18/16 14:00 10/02/16 13:59 09/19/16 09:56 2 MG Morphine Sulfate (MoRPHine SULFATE INJ) 4 mg Q4H PRN IV 09/18/16 14:00 10/02/16 13:59 Oxycodone HCl (Roxicodone Immediate Rel Tab) 10 mg Q6 PRN PO 09/18/16 14:00 10/02/16 13:59 09/19/16 02:31 10 MG Potassium Chloride (Klor-Con Tab) 20 meq BID PO 09/18/16 21:00 09/19/16 21:01 09/19/16 08:58 20 MEQ Gadobutrol (Gadavist) 6 mmol UD PRN IV 09/19/16 00:15 09/23/16 00:14 Ioversol (Optiray 320) 125 ml UD PRN IV 09/19/16 09:15 09/23/16 09:14 Review of Systems Complete review of systems otherwise negative except for the above noted in history of present illness Physical Exam Vital Signs (Past 24 Hrs): Date Time Temp Pulse Resp B/P (MAP) Pulse Ox O2 Delivery O2 Flow Rate FiO2 09/19/16 08:00 98 Room Air 09/19/16 07:46 36.6 63 20 136/64 (88) 98 Room Air 09/19/16 04:00 94 Room Air 09/19/16 04:00 36.8 59 17 117/52 (73) 94 Room Air 09/19/16 00:30 37.0 63 163/81 (108) 94 Room Air 09/19/16 00:30 94 Room Air 09/18/16 20:00 95 Nasal Cannula 2.0 09/18/16 19:52 37.2 63 16 156/58 (90) 95 Room Air 09/18/16 16:00 98 Nasal Cannula 2.0 09/18/16 14:26 60 16 139/84 98 09/18/16 14:17 60 139/84 09/18/16 13:44 37.4 58 18 169/66 98 Nasal Cannula 2.0 09/18/16 12:47 59 16 144/79 98 Nasal Cannula 2.0 09/18/16 11:19 59 16 167/74 98 Room Air 09/18/16 10:21 97 Nasal Cannula 2.0 Gen.: Patient is alert and sitting in bed, in no acute distress. HEENT: Normocephalic /atraumatic, no scleral icterus Heart: Regular rate and rhythm Extremities: No gross deformities or rashes noted Neurological examination: Mental status: Patient is alert and oriented x3. Attention and concentration normal for the situation. Good fund of knowledge. Able to give her own history. Speech is fluent without any dysarthria or aphasia noted Cranial nerve: Funduscopic examination was unremarkable. No papilledema. Pupils equally round and reactive to light. Extraocular muscles intact without nystagmus. No facial asymmetry noted. Facial sensation intact. Tongue is midline. Good palatal elevation. Good shoulder shrug bilaterally. Hearing grossly intact to voice. Strength: 5/5 both proximal and distally in bilateral upper extremities. No arm drift. At most +2/5 in proximal lower extremities bilaterally, and 0/5 and distal lower extremities. Tone is normal. Sensation: Patient reported decrease touch in bilateral feet to light touch. Otherwise reported sensation was intact in all 4 extremities and abdomen Deep tendon reflexes: +1 in bilateral biceps, brachioradialis and +0 patellar. Toes were equivocal to plantar stimulation Coordination: Patient had good finger to nose without dysmetria Station within the bed was normal Laboratory Results Past 24 Hours: 09/19/16 06:15 09/19/16 06:15 Test 09/19/16 02:40 09/19/16 06:15 09/19/16 09:07 Urine Color YELLOW Urine Appearance CLOUDY (CLEAR) Urine pH 7.5 (4.5-7.5) Urine Specific [place] 1.011 (1.000-1.030) Urine Protein NEG (NEG) Urine Glucose (UA) NEG (NEG) Urine Ketones NEG (NEG) Urine Occult Blood TRACE (NEG) Urine Nitrite NEG (NEG) Urine Bilirubin NEG (NEG) Urine Urobilinogen NEG (NEG) Urine Leukocyte Esterase TRACE (NEG) Urine WBC (Auto) 1-5 /hpf (0-5) Urine RBC (Auto) 0-4 /hpf (0-4) Urine Hyaline Casts (Auto) 1-5 /lpf (0-5) Urine Epithelial Cells (Auto) 5-10 /lpf (0-5) Urine Bacteria (Auto) NEG (NEG) Red Blood Count 4.16 M/uL (4.2-5.4) Mean Corpuscular Volume 91.3 fL (80-100) Mean Corpuscular Hemoglobin 29.3 pg (25-34) Mean Corpuscular Hemoglobin Concent 32.1 g/dl (32-36) RDW Standard Deviation 43.8 fL (36.4-46.3) RDW Coefficient of Variation 13.2 % (11.5-14.5) Mean Platelet Volume 10.6 fL (7.4-10.4) Anion Gap 5.0 mmol/L (3-11) Est Creatinine Clear Calc Drug Dose 49.5 ml/min Estimated GFR () 89.7 Estimated GFR (Non- 77.4 BUN/Creatinine Ratio 17.2 (10-20) Calcium Level 8.5 mg/dl (8.5-10.1) Magnesium Level 2.3 mg/dl (1.8-2.4) Vitamin B12 Level 666 pg/mL (211-911) Imaging As noted above in history of present illness Impression This is a 75-year-old female with 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 Most likely etiology would be a thrombus in the aorta or aortic dissection. Presentation does not seem consistent with transverse myelitis. Less likely differential diagnosis would also include B12 deficiency, neurosyphilis, or copper deficiency (although this is more likely give symptoms in the posterior cord), neuro-sarcoidosis, or viral etiologies (HTLV-1, CMV, Enteroviruses, coxsackie virus, West Nile, and enterovirus), or HIV. Plan Recommend a CTA of the aorta (or MRA) to look for aortic thrombus or dissection causing anterior spinal cord stroke. I sent off for a few other labs for more rare differential diagnosis to include B12, RPR, copper, JOHN, SSA/SSB, and Vijay. If the patient does have a large thrombus in the aorta or a dissection, we'll likely need to consult vascular surgery. If no aortic thrombus or dissection, may need to consider other differential diagnosis as listed above which may require lumbar puncture for evaluation. Patient will definitely need PT/OT evaluation and treatment. Will likely be a good candidate for inpatient rehabilitation. It may also be worth checking other comments stroke labs such as lipid profile and hemoglobin A1c for vascular risk factor modifications. If there is any questions or concerns, feel free to call/patient.
--- NOTE | 2016-09-19 12:13 | DIAGNOSTIC IMAGING REPORT ---
CT CHEST COMBO ANGIOGRAPHY CT DOSE: 576.20 mGy.cm CLINICAL HISTORY: Spinal cord infarct. Evaluate for aortic thrombus. TECHNIQUE: Unenhanced and arterial phase images of the chest were obtained. Injection 118 cc of Optiray 320 IV was uneventful. Sagittal and coronal reconstructions were viewed as well as maximal intensity projections on an independent 3-D workstation. COMPARISON STUDY: Chest CT July 07, 2006 and chest radiograph September 18, 2016. FINDINGS: The caliber of the ascending aorta is at the upper limits of normal, measuring 3.7 cm. There is no intramural hematoma or evidence of thoracic aortic dissection. There is moderate plaque of the distal descending thoracic aorta and proximal abdominal aorta. No thrombus is identified within the thoracic aorta. The size of the heart is normal. There is no pericardial effusion. There are no enlarged thoracic lymph nodes. Central airways are patent. Symmetric biapical subpleural opacities suggest scarring. Note is made of a subsegmental pulmonary embolus within the left lower lobe shown on image 206 of 301. Bony thorax is unremarkable. There are gallstones within the gallbladder. There is mild bilateral collecting system dilatation, right greater than left. There is hyperdense material within the esophagus and stomach. IMPRESSION: 1. No thoracic aortic dissection or intramural hematoma. Top normal caliber ascending aorta. Moderate atherosclerotic plaque of the distal descending thoracic aorta. No thoracic aortic thrombus. 2. Small subsegmental pulmonary embolus within the left lower lobe. 3. Mild nonspecific bilateral collecting system dilatation, right greater than left. 4. Cholelithiasis. Electronically signed by: Ed Kapoor M.D. 09/19/2016 12:11 PM Dictated Date/Time: 09/19/2016 11:56 AM
[2016-09-19] MEDS ORDERED: NURSING VERBAL MED ORDER ONE (13:30)
[2016-09-19] MEDS ORDERED: METHYLPREDNISOLONE IV 1,000 MG in DEXTROSE 5% 250ML 250 ML IV ONE (13:45)
--- NOTE | 2016-09-19 15:13 | DIAGNOSTIC IMAGING REPORT ---
FLUOROSCOPICALLY GUIDED LUMBAR PUNCTURE CLINICAL HISTORY: rule out transverse myelitis FLUOROSCOPY TIME: 30 seconds PROCEDURE: The procedure, risks and benefits were discussed with the patient including the risk of spinal headache, bleeding and infection. The patient agreed to the procedure and informed written consent was obtained. The procedure was performed by Dr. Pepper following a timeout. The left L3-L4 interlaminar space was targeted. Skin overlying the space was prepped and draped in the usual sterile fashion and local anesthesia was achieved with 1% lidocaine. Under intermittent fluoroscopic guidance, a 20-gauge x 3 1/2 in. Sprotte needle was inserted into the thecal sac. A total of 10 cc of clear, colorless cerebral spinal fluid was obtained and spread amongst 4 vials. The patient tolerated the procedure well. There were no immediate complications. The specimens were sent to the laboratory at the request of the referring physician. IMPRESSION: Successful fluoroscopic guided lumbar puncture with removal of 10 cc of clear, colorless cerebral spinal fluid. No immediate complications. Electronically signed by: Stanislav Pepper M.D. 09/19/2016 3:11 PM Dictated Date/Time: 09/19/2016 3:07 PM
[2016-09-19] MEDS ORDERED: ACETAMINOPHEN 500 MG TAB PO PRN (15:15)
--- NOTE | 2016-09-19 15:36 | Progress Note ---
Subjective Date of Service: Sep 19, 2016. Subjective Pt evaluation today including: conversation w/ patient, conversation w/ family (children at bedside), physical exam, lab review, review of studies, conversation w/ application support consultant, review of inpatient medication list Pain: legs and back are tender PO Intake: adequate Voiding: no voiding problems long talk with patient and her family updated on results of the MRI and the CTA chest discussed the diagnosis of spinal cord infarct vs myelitis discussed plan for LP and Solu Medrol and check dopplers discussed case with both Dr. Krishnamurthy and Dr. Kapoor, appreciate assistance in management patient still with paralysis of lower legs bilaterally full sensation she has noticed that toes are turning up, discussed that it is a sign of upper motor neuron injury, spinal cord Problem List Medical Problems: (1) Abnormal ECG Status: Acute (2) Falls Status: Acute (3) Low back pain Status: Acute (4) Lower extremity weakness Status: Acute Review of Systems Neurologic: + paralysis (legs), + problem reported (absent patellar and achilles reflexes, toes up turning on Babinski, sensation intact bilaterally) All Other Systems: Reviewed and Negative Medications Current Inpatient Medications Medications (Trade) Dose Ordered Sig/Ana Route Start Time Stop Time Status Last Admin Dose Admin Aspirin (Ecotrin Tab) 81 mg DAILY PO 09/19/16 09:00 10/19/16 08:59 09/19/16 08:58 81 MG Atorvastatin Calcium (Lipitor Tab) 20 mg HS PO 09/18/16 21:00 10/18/16 20:59 09/18/16 20:49 20 MG Fluticasone Propionate (Flonase Nasal [place]) 2 sprays DAILY GLORIA 09/19/16 09:00 10/19/16 08:59 09/19/16 08:56 2 SPRAYS Levothyroxine Sodium (Synthroid Tab) 75 mcg DAILYBB PO 09/19/16 06:00 10/19/16 05:59 09/19/16 05:53 75 MCG Metoprolol Tartrate (Lopressor Tab) 50 mg BID PO 09/18/16 21:00 10/18/16 20:59 09/19/16 08:56 50 MG Multivitamins (Multivitamin Tab) 1 tab DAILY PO 09/19/16 09:00 10/19/16 08:59 09/19/16 08:58 1 TAB Calcium/Vitamin D (Caltrate Plus Tab) 1 tab DAILY PO 09/19/16 09:00 10/19/16 08:59 09/19/16 08:57 1 TAB Heparin Sodium (Porcine) (Heparin Sq 5000 Unit/0.5ml) 5,000 unit Q12 SQ 09/18/16 21:00 10/18/16 20:59 09/19/16 09:00 5,000 UNIT Al Hydrox/Mg Hydrox/Simethicone (Maalox Max Susp) 15 ml Q4H PRN PO 09/18/16 14:00 10/18/16 13:59 Magnesium Hydroxide (Milk Of Magnesia Susp) 30 ml Q12H PRN PO 09/18/16 14:00 10/18/16 13:59 Ondansetron HCl (Zofran Inj) 4 mg Q6H PRN IV 09/18/16 14:00 10/18/16 13:59 Polyethylene (Miralax Powder Packet) 17 gm DAILY PRN PO 09/18/16 14:00 10/18/16 13:59 Morphine Sulfate (MoRPHine SULFATE INJ) 2 mg Q4H PRN IV 09/18/16 14:00 10/02/16 13:59 09/19/16 09:56 2 MG Morphine Sulfate (MoRPHine SULFATE INJ) 4 mg Q4H PRN IV 09/18/16 14:00 10/02/16 13:59 Oxycodone HCl (Roxicodone Immediate Rel Tab) 10 mg Q6 PRN PO 09/18/16 14:00 10/02/16 13:59 09/19/16 02:31 10 MG Potassium Chloride (Klor-Con Tab) 20 meq BID PO 09/18/16 21:00 09/19/16 21:01 09/19/16 08:58 20 MEQ Gadobutrol (Gadavist) 6 mmol UD PRN IV 09/19/16 00:15 09/23/16 00:14 Ioversol (Optiray 320) 125 ml UD PRN IV 09/19/16 09:15 09/23/16 09:14 Acetaminophen (Tylenol Tab) 1,000 mg Q4H PRN PO 09/19/16 15:15 09/21/16 15:14 Objective Vital Signs Date Time Temp Pulse Resp B/P (MAP) Pulse Ox O2 Delivery O2 Flow Rate FiO2 09/19/16 12:00 Room Air 09/19/16 11:53 37.2 56 20 140/53 (82) 93 Room Air 09/19/16 08:00 98 Room Air 09/19/16 07:46 36.6 63 20 136/64 (88) 98 Room Air 09/19/16 04:00 94 Room Air 09/19/16 04:00 36.8 59 17 117/52 (73) 94 Room Air 09/19/16 00:30 37.0 63 163/81 (108) 94 Room Air 09/19/16 00:30 94 Room Air 09/18/16 20:00 95 Nasal Cannula 2.0 09/18/16 19:52 37.2 63 16 156/58 (90) 95 Room Air 09/18/16 16:00 98 Nasal Cannula 2.0 Physical Exam General Appearance: WD/WN, no apparent distress Eyes: normal inspection, EOMI, sclerae normal ENT: normal ENT inspection, hearing grossly normal, pharynx normal Neck: supple, no adenopathy, no JVD Respiratory/Chest: chest non-tender, lungs clear, normal breath sounds, no respiratory distress, no accessory muscle use Cardiovascular: regular rate, rhythm, no edema, no gallop, no JVD, no murmur Abdomen: normal bowel sounds, non tender, soft, no organomegaly Extremities: normal range of motion, non-tender, normal inspection, no pedal edema, no calf tenderness, pelvis stable Neurologic/Psychiatric: cosmetic manager II-XII nml as tested, alert, normal mood/affect, oriented x 3, + motor weakness (paralysis of lower extremities), + pertinent finding (absent patellar reflexes bilaterally, up-going toes on Babinski) Skin: normal color, warm/dry, no rash Laboratory Results Last 24 Hours Test 09/19/16 02:40 09/19/16 06:15 09/19/16 09:07 09/19/16 12:47 Urine Color YELLOW Urine Appearance CLOUDY Urine pH 7.5 Urine Specific [place] 1.011 Urine Protein NEG Urine Glucose (UA) NEG Urine Ketones NEG Urine Occult Blood TRACE Urine Nitrite NEG Urine Bilirubin NEG Urine Urobilinogen NEG Urine Leukocyte Esterase TRACE Urine WBC (Auto) 1-5 /hpf Urine RBC (Auto) 0-4 /hpf Urine Hyaline Casts (Auto) 1-5 /lpf Urine Epithelial Cells (Auto) 5-10 /lpf Urine Bacteria (Auto) NEG White Blood Count 6.64 K/uL Red Blood Count 4.16 M/uL Hemoglobin 12.2 g/dL Hematocrit 38.0 % Mean Corpuscular Volume 91.3 fL Mean Corpuscular Hemoglobin 29.3 pg Mean Corpuscular Hemoglobin Concent 32.1 g/dl RDW Standard Deviation 43.8 fL RDW Coefficient of Variation 13.2 % Platelet Count 146 K/uL Mean Platelet Volume 10.6 fL Sodium Level 140 mmol/L Potassium Level 4.1 mmol/L Chloride Level 110 mmol/L Carbon Dioxide Level 25 mmol/L Anion Gap 5.0 mmol/L Blood Urea Nitrogen 13 mg/dl Creatinine 0.75 mg/dl Est Creatinine Clear Calc Drug Dose 49.5 ml/min Estimated GFR () 89.7 Estimated GFR (Non- 77.4 BUN/Creatinine Ratio 17.2 Random Glucose 100 mg/dl Calcium Level 8.5 mg/dl Magnesium Level 2.3 mg/dl Vitamin B12 Level 666 pg/mL Test 09/19/16 14:35 Assessment and Plan 75-year-old female with presyncope and bilateral radicular leg pain and numbness , associated weakness and inability to stand but no loss of continence of bowel or bladder over baseline - Cord infarct vs myelitis: acute onset, still with bilateral lower extremity paralysis, absent reflexes, up going toes no evidence of aortic dissection or thrombus on CTA chest will give Solu Medrol 1gm IV now LP done, studies ordered by neurology PT/OT ordered, will definitely need rehab follow up on results of LP and recommendations from neurology keep on tele today - Left subsegmental PE: very small according to radiology, hesitant to treat will check dopplers, if she had DVT then start heparin gtt no shortness of breath Regarding her thyroid she is clinically euthyroid we'll maintain her Synthroid Heparin will be used for DVT prevention Level 1
[2016-09-19 15:57] LABS: CSF APPEARANCE CLEAR; CSF COLOR COLORLESS; CSF XANTHOCHROMIC NO XANTHOCHROMIA
--- NOTE | 2016-09-19 17:54 | DIAGNOSTIC IMAGING REPORT ---
ULTRASOUND BILATERAL LOWER EXTREMITY VENOUS CLINICAL HISTORY: Pulmonary embolus. COMPARISON STUDY: No priors. TECHNIQUE: Real-time, grayscale, and color Doppler sonography of the deep veins of the right and left lower extremity was performed from the inguinal crease to the calf. Compression and augmentation were utilized. FINDINGS: There is no sonographic evidence of deep venous thrombosis identified in the right or left lower extremity. The common femoral, superficial femoral, and popliteal veins are patent and normally compressible bilaterally. The greater saphenous vein and the profunda femoris vein at the junction with the common femoral vein are clear in both legs. The visualized calf veins are patent bilaterally. IMPRESSION: There is no sonographic evidence of deep venous thrombosis identified in the right or left lower extremity. Electronically signed by: Jean-Paul Jain M.D. 09/19/2016 5:53 PM Dictated Date/Time: 09/19/2016 5:52 PM
[2016-09-19] MEDS: ATORVASTATIN 20 MG TAB PO SCH (20:48)
[2016-09-20 03:53] VITALS: BP 110/46; PULSE 64; TEMP 36.6; O2SAT 95
[2016-09-20] MEDS: LEVOTHYROXINE 75 MCG TAB PO SCH (05:58)
[2016-09-20 07:19] LABS: CHOLESTEROL/HDL RATIO 2.3
[2016-09-20 07:34] VITALS: BP 120/51; PULSE 65; TEMP 36.7; O2SAT 93
[2016-09-20 08:16] LABS: ESTIMATED AVERAGE GLUCOSE 111 mg/dl; HA1C FLAG Normal (Normal)
[2016-09-20] MEDS: MULTIVITAMIN TAB PO SCH (08:30)
[2016-09-20] MEDS: METOPROLOL TARTRATE 50 MG TAB PO SCH ×2 (08:31→20:57)
[2016-09-20] MEDS: ASPIRIN 81 MG ECTAB PO SCH (08:31)
[2016-09-20] MEDS: CALCIUM 600MG + VIT D 400 IU TAB PO SCH (08:31)
[2016-09-20] MEDS: HEPARIN SOD 5000 UNIT/0.5 ML CARP SQ SCH ×2 (08:32→21:06)
[2016-09-20] MEDS: FLUTICASONE PROPIONATE NA SPR 16 GM BTL NAE SCH (08:34)
[2016-09-20 11:52] VITALS: BP 128/55; PULSE 63; TEMP 37.1; O2SAT 95
--- NOTE | 2016-09-20 11:53 | Progress Note ---
Subjective Date of Service: Sep 20, 2016. Subjective Pt evaluation today including: conversation w/ patient, physical exam, lab review, review of studies, conversation w/ peoplesoft financials consultant, review of inpatient medication list Pain: pain in lower back PO Intake: adequate Voiding: no voiding problems no improvement in leg strength still with sensation intact, no urinary or bowel incontinence patient trying to remain optimistic reviewed results of dopplers, negative, no plans for anticoagulation discussed case with Dr. Krishnamurthy, plan for 2 more days of Solu Medrol to look for improvement plan to move to medical floor later today Problem List Medical Problems: (1) Abnormal ECG Status: Acute (2) Falls Status: Acute (3) Low back pain Status: Acute (4) Lower extremity weakness Status: Acute Review of Systems Neurologic: + paralysis (lower extremities bilaterally) All Other Systems: Reviewed and Negative Medications Current Inpatient Medications Medications (Trade) Dose Ordered Sig/Ana Route Start Time Stop Time Status Last Admin Dose Admin Aspirin (Ecotrin Tab) 81 mg DAILY PO 09/19/16 09:00 10/19/16 08:59 09/20/16 08:31 81 MG Atorvastatin Calcium (Lipitor Tab) 20 mg HS PO 09/18/16 21:00 10/18/16 20:59 09/19/16 20:48 20 MG Fluticasone Propionate (Flonase Nasal [place]) 2 sprays DAILY GLORIA 09/19/16 09:00 10/19/16 08:59 09/19/16 08:56 2 SPRAYS Levothyroxine Sodium (Synthroid Tab) 75 mcg DAILYBB PO 09/19/16 06:00 10/19/16 05:59 09/20/16 05:58 75 MCG Metoprolol Tartrate (Lopressor Tab) 50 mg BID PO 09/18/16 21:00 10/18/16 20:59 09/20/16 08:31 50 MG Multivitamins (Multivitamin Tab) 1 tab DAILY PO 09/19/16 09:00 10/19/16 08:59 09/20/16 08:30 1 TAB Calcium/Vitamin D (Caltrate Plus Tab) 1 tab DAILY PO 09/19/16 09:00 10/19/16 08:59 09/20/16 08:31 1 TAB Heparin Sodium (Porcine) (Heparin Sq 5000 Unit/0.5ml) 5,000 unit Q12 SQ 09/18/16 21:00 10/18/16 20:59 09/20/16 08:32 5,000 UNIT Al Hydrox/Mg Hydrox/Simethicone (Maalox Max Susp) 15 ml Q4H PRN PO 09/18/16 14:00 10/18/16 13:59 Magnesium Hydroxide (Milk Of Magnesia Susp) 30 ml Q12H PRN PO 09/18/16 14:00 10/18/16 13:59 Ondansetron HCl (Zofran Inj) 4 mg Q6H PRN IV 09/18/16 14:00 10/18/16 13:59 Polyethylene (Miralax Powder Packet) 17 gm DAILY PRN PO 09/18/16 14:00 10/18/16 13:59 Morphine Sulfate (MoRPHine SULFATE INJ) 2 mg Q4H PRN IV 09/18/16 14:00 10/02/16 13:59 09/19/16 09:56 2 MG Morphine Sulfate (MoRPHine SULFATE INJ) 4 mg Q4H PRN IV 09/18/16 14:00 10/02/16 13:59 Oxycodone HCl (Roxicodone Immediate Rel Tab) 10 mg Q6 PRN PO 09/18/16 14:00 10/02/16 13:59 09/19/16 22:29 10 MG Gadobutrol (Gadavist) 6 mmol UD PRN IV 09/19/16 00:15 09/23/16 00:14 Ioversol (Optiray 320) 125 ml UD PRN IV 09/19/16 09:15 09/23/16 09:14 Acetaminophen (Tylenol Tab) 1,000 mg Q4H PRN PO 09/19/16 15:15 09/21/16 15:14 Objective Vital Signs Date Time Temp Pulse Resp B/P (MAP) Pulse Ox O2 Delivery O2 Flow Rate FiO2 09/20/16 08:00 Room Air 09/20/16 07:34 36.7 65 17 120/51 (74) 93 Room Air 09/20/16 04:00 Room Air 09/20/16 03:53 36.6 64 18 110/46 (67) 95 Room Air 09/20/16 00:00 Room Air 09/19/16 23:45 36.8 64 16 113/52 (72) 94 Room Air 09/19/16 20:00 Room Air 09/19/16 19:36 37.2 65 22 130/65 (86) 90 Room Air 09/19/16 16:00 Room Air 09/19/16 15:37 37.3 57 22 138/61 (86) 94 Room Air 09/19/16 12:00 Room Air 09/19/16 11:53 37.2 56 20 140/53 (82) 93 Room Air Physical Exam General Appearance: WD/WN, no apparent distress Eyes: normal inspection, EOMI, sclerae normal ENT: normal ENT inspection, hearing grossly normal, pharynx normal Neck: supple, no adenopathy, no JVD, trachea midline Respiratory/Chest: chest non-tender, lungs clear, normal breath sounds, no respiratory distress, no accessory muscle use Cardiovascular: regular rate, rhythm, no edema, no gallop, no JVD, no murmur Abdomen: normal bowel sounds, non tender, soft, no organomegaly Extremities: normal range of motion, non-tender, normal inspection, no pedal edema, no calf tenderness, pelvis stable Neurologic/Psychiatric: dolphin trainer II-XII nml as tested, alert, normal mood/affect, oriented x 3, + motor weakness (lower extremities 0 out of 5 strength, decreased DTR, sensation intact) Skin: normal color, warm/dry, no rash Lymphatic: no adenopathy Laboratory Results Last 24 Hours Test 09/19/16 14:35 09/20/16 06:17 09/20/16 06:55 CSF Color COLORLESS CSF Appearance CLEAR CSF WBC 1 /uL CSF RBC 17 /uL CSF Xanthrochromic NO XANTHOCHROMIA CSF Cell Count Tube # 3 CSF Chemistry Tube # 1 CSF Glucose 54 mg/dl CSF Total Protein 55.0 mg/dl Estimated Average Glucose 111 mg/dl Hemoglobin A1c 5.5 % Triglycerides Level 87 mg/dl Cholesterol Level 148 mg/dl HDL Cholesterol 65 mg/dl LDL Cholesterol, Calculated 66 mg/dl VLDL Cholesterol, Calculated 17 mg/dl Cholesterol/HDL Ratio 2.3 Assessment and Plan 75-year-old female with presyncope and bilateral radicular leg pain and numbness , associated weakness and inability to stand but no loss of continence of bowel or bladder over baseline - Cord infarct vs myelitis: acute onset, still with bilateral lower extremity paralysis, absent reflexes, up going toes, no change in past 24 hours no evidence of aortic dissection or thrombus on CTA chest started on Solu Medrol 1gm IV, will give 2 more doses to look for any signs of improvement LP done, studies ordered by neurology, protein 55, no signs of infection hypercoagulable work up ordered, West Nile testing, JOHN screen PT/OT ordered, will definitely need rehab transfer to medical today - Left subsegmental PE: very small according to radiology, hesitant to treat dopplers negative for DVT bilaterally will elect to not treat, no chest pain, no dyspnea patient and family agree with plan Regarding her thyroid she is clinically euthyroid we'll maintain her Synthroid Heparin will be used for DVT prevention Level 1
--- NOTE | 2016-09-20 12:06 | Neurology Progress Notes ---
Neurology Progress Note Date of Service Sep 20, 2016. Subjective Patient denies any changes. No new neurological symptoms. No side effects to IV steroids given yesterday. CTA of the chest and abdomen was reviewed. No aortic thrombus or dissection. A small PE noted in the left lower lobe Lumbar puncture results reviewed. Cell count is unremarkable and at this time does not suggest an infection. Viral labs and CSF Lyme is pending Hemoglobin A1c and lipid profile are unremarkable and within goal. Objective Date Time Temp Pulse Resp B/P (MAP) Pulse Ox O2 Delivery O2 Flow Rate FiO2 09/20/16 11:52 37.1 63 18 128/55 (79) 95 Room Air 09/20/16 08:00 Room Air 09/20/16 07:34 36.7 65 17 120/51 (74) 93 Room Air 09/20/16 04:00 Room Air 09/20/16 03:53 36.6 64 18 110/46 (67) 95 Room Air 09/20/16 00:00 Room Air 09/19/16 23:45 36.8 64 16 113/52 (72) 94 Room Air 09/19/16 20:00 Room Air 09/19/16 19:36 37.2 65 22 130/65 (86) 90 Room Air 09/19/16 16:00 Room Air 09/19/16 15:37 37.3 57 22 138/61 (86) 94 Room Air 09/19/16 12:00 Room Air Last 24 Hours Test 09/19/16 14:35 09/20/16 06:17 09/20/16 06:55 CSF Color COLORLESS CSF Appearance CLEAR CSF WBC 1 /uL CSF RBC 17 /uL CSF Xanthrochromic NO XANTHOCHROMIA CSF Cell Count Tube # 3 CSF Chemistry Tube # 1 CSF Glucose 54 mg/dl CSF Total Protein 55.0 mg/dl Estimated Average Glucose 111 mg/dl Hemoglobin A1c 5.5 % Triglycerides Level 87 mg/dl Cholesterol Level 148 mg/dl HDL Cholesterol 65 mg/dl LDL Cholesterol, Calculated 66 mg/dl VLDL Cholesterol, Calculated 17 mg/dl Cholesterol/HDL Ratio 2.3 Exam: Gen.: Patient is alert and sitting in bed, in no acute distress. HEENT: Normocephalic /atraumatic, no scleral icterus Extremities: No gross deformities or rashes noted Neurological examination: Mental status: Patient is alert and oriented x3. Attention and concentration normal for the situation. Good fund of knowledge. Able to give her own history. Speech is fluent without any dysarthria or aphasia noted Cranial nerve: No facial asymmetry noted. Hearing grossly intact to voice. Strength: 5/5 both proximal and distally in bilateral upper extremities. No arm drift. +2/5 in proximal lower extremities bilaterally, and +1/5 in left toes, and 0/5 on the right. Sensation: Patient reported decrease touch in bilateral feet to light touch. Otherwise reported sensation was intact in all 4 extremities and abdomen Station within the bed was normal Current Inpatient Medications Medications (Trade) Dose Ordered Sig/Ana Route Start Time Stop Time Status Last Admin Dose Admin Aspirin (Ecotrin Tab) 81 mg DAILY PO 09/19/16 09:00 10/19/16 08:59 09/20/16 08:31 81 MG Atorvastatin Calcium (Lipitor Tab) 20 mg HS PO 09/18/16 21:00 10/18/16 20:59 09/19/16 20:48 20 MG Fluticasone Propionate (Flonase Nasal [place]) 2 sprays DAILY GLORIA 09/19/16 09:00 10/19/16 08:59 09/19/16 08:56 2 SPRAYS Levothyroxine Sodium (Synthroid Tab) 75 mcg DAILYBB PO 09/19/16 06:00 10/19/16 05:59 09/20/16 05:58 75 MCG Metoprolol Tartrate (Lopressor Tab) 50 mg BID PO 09/18/16 21:00 10/18/16 20:59 09/20/16 08:31 50 MG Multivitamins (Multivitamin Tab) 1 tab DAILY PO 09/19/16 09:00 10/19/16 08:59 09/20/16 08:30 1 TAB Calcium/Vitamin D (Caltrate Plus Tab) 1 tab DAILY PO 09/19/16 09:00 10/19/16 08:59 09/20/16 08:31 1 TAB Heparin Sodium (Porcine) (Heparin Sq 5000 Unit/0.5ml) 5,000 unit Q12 SQ 09/18/16 21:00 10/18/16 20:59 09/20/16 08:32 5,000 UNIT Al Hydrox/Mg Hydrox/Simethicone (Maalox Max Susp) 15 ml Q4H PRN PO 09/18/16 14:00 10/18/16 13:59 Magnesium Hydroxide (Milk Of Magnesia Susp) 30 ml Q12H PRN PO 09/18/16 14:00 10/18/16 13:59 Ondansetron HCl (Zofran Inj) 4 mg Q6H PRN IV 09/18/16 14:00 10/18/16 13:59 Polyethylene (Miralax Powder Packet) 17 gm DAILY PRN PO 09/18/16 14:00 10/18/16 13:59 Morphine Sulfate (MoRPHine SULFATE INJ) 2 mg Q4H PRN IV 09/18/16 14:00 10/02/16 13:59 09/19/16 09:56 2 MG Morphine Sulfate (MoRPHine SULFATE INJ) 4 mg Q4H PRN IV 09/18/16 14:00 10/02/16 13:59 Oxycodone HCl (Roxicodone Immediate Rel Tab) 10 mg Q6 PRN PO 09/18/16 14:00 10/02/16 13:59 09/19/16 22:29 10 MG Gadobutrol (Gadavist) 6 mmol UD PRN IV 09/19/16 00:15 09/23/16 00:14 Ioversol (Optiray 320) 125 ml UD PRN IV 09/19/16 09:15 09/23/16 09:14 Acetaminophen (Tylenol Tab) 1,000 mg Q4H PRN PO 09/19/16 15:15 09/21/16 15:14 Impression This is a 75-year-old female with 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 Unclear etiology, but considering that the patient also has evidence of a small PE in the left lower lobe, concerning for a possible undiagnosed hypercoagulable state. Presentation does not seem consistent with transverse myelitis. Less likely differential diagnosis would also include B12 deficiency, neurosyphilis, or copper deficiency (although this is more likely give symptoms in the posterior cord), neuro-sarcoidosis, or viral etiologies (HTLV-1, CMV, Enteroviruses, coxsackie virus, West Nile, and enterovirus), or HIV. Plan Recommend 2 more days of IV Solu-Medrol 1 g to see if this would help improve her recovery after spinal cord injury (I ordered Solu-Medrol for the next 2 days ). Would need steroid taper afterwards. B12, RPR, copper, JOHN, SSA/SSB, and Vijay are pending. In addition I have added on homocystine, beta-2 glycoprotein, cardiolipin antibodies, lupus anticoagulant , and JOHN to screen for hypocoagulable state. CSF viral studies and Lyme are pending Follow-up with PT/OT evaluation and treatment. Will likely be a good candidate for inpatient rehabilitation. Son asked about clot busting education. Discussed that IV TPA is only physicians within the first 3 hours, and would not be indicated at this time. Son also asked about some sort of spinal expert regarding his mother's condition. Discussed that at this hospital that would be neurology. There is no indication for surgical evaluation. Discussed that as an outpatient, if they wanted a second opinion from a stroke specialist on etiology, that would not be unreasonable if we did not find a specific etiology for her spinal stroke, but that I did not see any indication for transfer to a larger hospital this time as I do not think that they would do anything different. More than likely the patient will be placed on anticoagulation and she also has a small PE. If the patient was not placed on anticoagulation for PE, I would recommend a treatment with aspirin 81 mg plus Plavix. If there is any questions or concerns, feel free to call/patient.
[2016-09-20] MEDS ORDERED: CLOPIDOGREL BISULFATE 75 MG TAB PO ONE (12:15)
[2016-09-20] MEDS: METHYLPREDNISOLONE IV 1,000 MG in DEXTROSE 5% 250ML 250 ML IV SCH (12:41)
[2016-09-20 15:27] VITALS: BP 145/47; PULSE 69; TEMP 36.6; O2SAT 93
[2016-09-20 17:47] VITALS: BP 145/47; PULSE 69; TEMP 36.6; O2SAT 93
[2016-09-20] MEDS: ATORVASTATIN 20 MG TAB PO SCH (20:57)
[2016-09-20 23:10] VITALS: BP 134/70; PULSE 61; TEMP 36.5; O2SAT 96
[2016-09-21] MEDS: OXYCODONE HCL IR 5 MG TAB (IMMEDIATE RELEASE) PO PRN (00:10)
[2016-09-21] MEDS: LEVOTHYROXINE 75 MCG TAB PO SCH (05:58)
[2016-09-21] MEDS: POLYETHYLENE (MIRALAX) 17 GM PACK PO PRN (05:58)
[2016-09-21 06:15] LABS: HEMATOCRIT 34.7 % (37-47); MEAN CELL VOLUME 89.4 fL (80-100); MEAN CORPUSCULAR HEMOGLOBIN 30.7 pg (25-34); MEAN CORPUSCULAR HGB CONC 34.3 g/dl (32-36); PLATELET COUNT 159 K/uL (130-400); RED BLOOD COUNT 3.88 M/uL (4.2-5.4); WHITE BLOOD COUNT 14.24 K/uL (4.8-10.8)
[2016-09-21 06:59] LABS: BUN/CREATININE RATIO 33.4 (10-20); CALCIUM 8.9 mg/dl (8.5-10.1); CREATININE 0.79 mg/dl (0.60-1.20); MAGNESIUM 2.6 mg/dl (1.8-2.4); POTASSIUM 4.3 mmol/L (3.5-5.1)
[2016-09-21 07:19] VITALS: BP 152/87; PULSE 64; TEMP 36.4; O2SAT 92
[2016-09-21] MEDS: METHYLPREDNISOLONE IV 1,000 MG in DEXTROSE 5% 250ML 250 ML IV SCH (08:42)
[2016-09-21] MEDS: CALCIUM 600MG + VIT D 400 IU TAB PO SCH (08:42)
[2016-09-21] MEDS: ASPIRIN 81 MG ECTAB PO SCH (08:42)
[2016-09-21] MEDS: MULTIVITAMIN TAB PO SCH (08:43)
[2016-09-21] MEDS: METOPROLOL TARTRATE 50 MG TAB PO SCH ×2 (08:44→21:25)
[2016-09-21] MEDS: FLUTICASONE PROPIONATE NA SPR 16 GM BTL NAE SCH (08:44)
[2016-09-21] MEDS: HEPARIN SOD 5000 UNIT/0.5 ML CARP SQ SCH ×2 (08:48→21:19)
[2016-09-21] MEDS: CLOPIDOGREL BISULFATE 75 MG TAB PO SCH (09:12)
--- NOTE | 2016-09-21 11:35 | Neurology Progress Notes ---
Neurology Progress Note Date of Service Sep 21, 2016. Subjective Patient reports some improved movement in her legs today compared to yesterday. No new neurological symptoms. Still has lack of feeling in her feet. Patient reports that bowel and bladder sensation starting come back. Objective Date Time Temp Pulse Resp B/P (MAP) Pulse Ox O2 Delivery O2 Flow Rate FiO2 09/21/16 07:40 Room Air 09/21/16 07:19 36.4 64 16 152/87 (108) 92 Room Air 09/20/16 23:27 Room Air 09/20/16 23:10 36.5 61 14 134/70 (91) 96 Room Air 09/20/16 17:47 36.6 69 16 93 2.0 09/20/16 16:00 Room Air 09/20/16 15:27 36.6 69 16 145/47 (79) 93 Room Air 09/20/16 12:00 Room Air 09/20/16 11:52 37.1 63 18 128/55 (79) 95 Room Air Last 24 Hours Test 09/21/16 05:48 White Blood Count 14.24 K/uL Red Blood Count 3.88 M/uL Hemoglobin 11.9 g/dL Hematocrit 34.7 % Mean Corpuscular Volume 89.4 fL Mean Corpuscular Hemoglobin 30.7 pg Mean Corpuscular Hemoglobin Concent 34.3 g/dl RDW Standard Deviation 43.0 fL RDW Coefficient of Variation 13.2 % Platelet Count 159 K/uL Mean Platelet Volume 11.0 fL Sodium Level 140 mmol/L Potassium Level 4.3 mmol/L Chloride Level 108 mmol/L Carbon Dioxide Level 26 mmol/L Anion Gap 6.0 mmol/L Blood Urea Nitrogen 26 mg/dl Creatinine 0.79 mg/dl Est Creatinine Clear Calc Drug Dose 45.9 ml/min Estimated GFR () 84.3 Estimated GFR (Non- 72.7 BUN/Creatinine Ratio 33.4 Random Glucose 137 mg/dl Calcium Level 8.9 mg/dl Magnesium Level 2.6 mg/dl Exam: Gen.: Patient is alert and sitting in bed, in no acute distress. HEENT: Normocephalic /atraumatic, no scleral icterus Extremities: No gross deformities or rashes noted Neurological examination: Mental status: Patient is alert and oriented x3. Attention and concentration normal for the situation. Good fund of knowledge. Able to give her own history. Speech is fluent without any dysarthria or aphasia noted Cranial nerve: No facial asymmetry noted. Hearing grossly intact to voice. Strength: 5/5 both proximal and distally in bilateral upper extremities. No arm drift. 4-/5 right hip flexion and 3-/5 left hip flexion. 0/5 dorci and planter flexion b/l. In addition the patient appears to have better truncal movement and stability Sensation: Patient reported decrease touch in bilateral feet to light touch. Otherwise reported sensation was intact in all 4 extremities and abdomen Station within the bed was normal Current Inpatient Medications Medications (Trade) Dose Ordered Sig/Ana Route Start Time Stop Time Status Last Admin Dose Admin Aspirin (Ecotrin Tab) 81 mg DAILY PO 09/19/16 09:00 10/19/16 08:59 09/21/16 08:42 81 MG Atorvastatin Calcium (Lipitor Tab) 20 mg HS PO 09/18/16 21:00 10/18/16 20:59 09/20/16 20:57 20 MG Fluticasone Propionate (Flonase Nasal [place]) 2 sprays DAILY GLORIA 09/19/16 09:00 10/19/16 08:59 09/19/16 08:56 2 SPRAYS Levothyroxine Sodium (Synthroid Tab) 75 mcg DAILYBB PO 09/19/16 06:00 10/19/16 05:59 09/21/16 05:58 75 MCG Metoprolol Tartrate (Lopressor Tab) 50 mg BID PO 09/18/16 21:00 10/18/16 20:59 09/21/16 08:44 50 MG Multivitamins (Multivitamin Tab) 1 tab DAILY PO 09/19/16 09:00 10/19/16 08:59 09/21/16 08:43 1 TAB Calcium/Vitamin D (Caltrate Plus Tab) 1 tab DAILY PO 09/19/16 09:00 10/19/16 08:59 09/21/16 08:42 1 TAB Heparin Sodium (Porcine) (Heparin Sq 5000 Unit/0.5ml) 5,000 unit Q12 SQ 09/18/16 21:00 10/18/16 20:59 09/21/16 08:48 5,000 UNIT Al Hydrox/Mg Hydrox/Simethicone (Maalox Max Susp) 15 ml Q4H PRN PO 09/18/16 14:00 10/18/16 13:59 Magnesium Hydroxide (Milk Of Magnesia Susp) 30 ml Q12H PRN PO 09/18/16 14:00 10/18/16 13:59 Ondansetron HCl (Zofran Inj) 4 mg Q6H PRN IV 09/18/16 14:00 10/18/16 13:59 Polyethylene (Miralax Powder Packet) 17 gm DAILY PRN PO 09/18/16 14:00 10/18/16 13:59 09/21/16 05:58 17 GM Morphine Sulfate (MoRPHine SULFATE INJ) 2 mg Q4H PRN IV 09/18/16 14:00 10/02/16 13:59 09/19/16 09:56 2 MG Morphine Sulfate (MoRPHine SULFATE INJ) 4 mg Q4H PRN IV 09/18/16 14:00 10/02/16 13:59 Oxycodone HCl (Roxicodone Immediate Rel Tab) 10 mg Q6 PRN PO 09/18/16 14:00 10/02/16 13:59 09/21/16 00:10 10 MG Gadobutrol (Gadavist) 6 mmol UD PRN IV 09/19/16 00:15 09/23/16 00:14 Ioversol (Optiray 320) 125 ml UD PRN IV 09/19/16 09:15 09/23/16 09:14 Acetaminophen (Tylenol Tab) 1,000 mg Q4H PRN PO 09/19/16 15:15 09/21/16 15:14 Clopidogrel Bisulfate (plAVix TAB) 75 mg QAM PO 09/21/16 09:00 10/21/16 08:59 09/21/16 09:12 75 MG Impression This is a 75-year-old female with 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 Unclear etiology, but considering that the patient also has evidence of a possible tiny PE in the left lower lobe, concerning for a possible undiagnosed hypercoagulable state. Over all has had significant improvement in the last 2 days. Prognosis is guarded but optimistic. Presentation does not seem consistent with transverse myelitis. Less likely differential diagnosis would also include B12 deficiency, neurosyphilis, or copper deficiency (although this is more likely give symptoms in the posterior cord), neuro-sarcoidosis, CARDIOTHORACIC PHYSIOTHERAPIST lyme, or viral etiologies (HTLV-1, CMV, Enteroviruses, coxsackie virus, West Nile, and enterovirus), or HIV. Plan Day 3 of IV Solu-Medrol today. Will need steroid taper starting tomorrow B12, RPR, copper, JOHN, SSA/SSB, and Vijay are pending. Also homocystine, beta-2 glycoprotein, cardiolipin antibodies, lupus anticoagulant, and JOHN to screen for hypocoagulable state are pending. CSF viral studies and CSF Lyme are pending Follow-up with PT/OT evaluation and treatment. Will likely be a good candidate for inpatient rehabilitation. recommend treatment with aspirin 81 mg plus Plavix for 1 month, then can discontinue aspirin and remain on Plavix monotherapy for stroke prevention. Follow up in neuro clinic in 1 month If there is any questions or concerns, feel free to call/patient. Dr Shepard will be coming onto neuro consult service on Thursday.
--- NOTE | 2016-09-21 11:48 | Progress Note ---
Subjective Date of Service: Sep 21, 2016. Subjective Pt evaluation today including: conversation w/ patient, conversation w/ family (children at the bedside), physical exam, conversation w/ benefits consultant, review of inpatient medication list Pain: less pain in legs and back PO Intake: adequate Voiding: incontinence (urinary, intermittent) patient very excited this AM, she moved her thighs and wiggled toes this AM she has lost sensation in feet though and she c/o some intermittent urinary incontinence no new pain no chest pain, no shortness of breath, eating well discussed plan for rehab on discharge, maybe as early as tomorrow discussed the case with Dr. Krishnamurthy, recommend echo today, steroid taper and antiplatelets on discharge Problem List Medical Problems: (1) Abnormal ECG Status: Acute (2) Falls Status: Acute (3) Low back pain Status: Acute (4) Lower extremity weakness Status: Acute Review of Systems Female : + incontinence Neurologic: + paralysis (improving, moving upper legs and wiggling toes bilaterally, more strength on right), + numbness/tingling (loss of sensation in feet bilaterally) All Other Systems: Reviewed and Negative Medications Current Inpatient Medications Medications (Trade) Dose Ordered Sig/Ana Route Start Time Stop Time Status Last Admin Dose Admin Aspirin (Ecotrin Tab) 81 mg DAILY PO 09/19/16 09:00 10/19/16 08:59 09/21/16 08:42 81 MG Atorvastatin Calcium (Lipitor Tab) 20 mg HS PO 09/18/16 21:00 10/18/16 20:59 09/20/16 20:57 20 MG Fluticasone Propionate (Flonase Nasal [place]) 2 sprays DAILY GLORIA 09/19/16 09:00 10/19/16 08:59 09/19/16 08:56 2 SPRAYS Levothyroxine Sodium (Synthroid Tab) 75 mcg DAILYBB PO 09/19/16 06:00 10/19/16 05:59 09/21/16 05:58 75 MCG Metoprolol Tartrate (Lopressor Tab) 50 mg BID PO 09/18/16 21:00 10/18/16 20:59 09/21/16 08:44 50 MG Multivitamins (Multivitamin Tab) 1 tab DAILY PO 09/19/16 09:00 10/19/16 08:59 09/21/16 08:43 1 TAB Calcium/Vitamin D (Caltrate Plus Tab) 1 tab DAILY PO 09/19/16 09:00 10/19/16 08:59 09/21/16 08:42 1 TAB Heparin Sodium (Porcine) (Heparin Sq 5000 Unit/0.5ml) 5,000 unit Q12 SQ 09/18/16 21:00 10/18/16 20:59 09/21/16 08:48 5,000 UNIT Al Hydrox/Mg Hydrox/Simethicone (Maalox Max Susp) 15 ml Q4H PRN PO 09/18/16 14:00 10/18/16 13:59 Magnesium Hydroxide (Milk Of Magnesia Susp) 30 ml Q12H PRN PO 09/18/16 14:00 10/18/16 13:59 Ondansetron HCl (Zofran Inj) 4 mg Q6H PRN IV 09/18/16 14:00 10/18/16 13:59 Polyethylene (Miralax Powder Packet) 17 gm DAILY PRN PO 09/18/16 14:00 10/18/16 13:59 09/21/16 05:58 17 GM Morphine Sulfate (MoRPHine SULFATE INJ) 2 mg Q4H PRN IV 09/18/16 14:00 10/02/16 13:59 09/19/16 09:56 2 MG Morphine Sulfate (MoRPHine SULFATE INJ) 4 mg Q4H PRN IV 09/18/16 14:00 10/02/16 13:59 Oxycodone HCl (Roxicodone Immediate Rel Tab) 10 mg Q6 PRN PO 09/18/16 14:00 10/02/16 13:59 09/21/16 00:10 10 MG Gadobutrol (Gadavist) 6 mmol UD PRN IV 09/19/16 00:15 09/23/16 00:14 Ioversol (Optiray 320) 125 ml UD PRN IV 09/19/16 09:15 09/23/16 09:14 Acetaminophen (Tylenol Tab) 1,000 mg Q4H PRN PO 09/19/16 15:15 09/21/16 15:14 Clopidogrel Bisulfate (plAVix TAB) 75 mg QAM PO 09/21/16 09:00 10/21/16 08:59 09/21/16 09:12 75 MG Objective Vital Signs Date Time Temp Pulse Resp B/P (MAP) Pulse Ox O2 Delivery O2 Flow Rate FiO2 09/21/16 07:40 Room Air 09/21/16 07:19 36.4 64 16 152/87 (108) 92 Room Air 09/20/16 23:27 Room Air 09/20/16 23:10 36.5 61 14 134/70 (91) 96 Room Air 09/20/16 17:47 36.6 69 16 93 2.0 09/20/16 16:00 Room Air 09/20/16 15:27 36.6 69 16 145/47 (79) 93 Room Air 09/20/16 12:00 Room Air 09/20/16 11:52 37.1 63 18 128/55 (79) 95 Room Air Physical Exam General Appearance: WD/WN, no apparent distress Eyes: normal inspection, EOMI, sclerae normal ENT: normal ENT inspection, hearing grossly normal, pharynx normal Neck: supple, no adenopathy, no JVD, trachea midline Respiratory/Chest: chest non-tender, lungs clear, normal breath sounds, no respiratory distress, no accessory muscle use Cardiovascular: regular rate, rhythm, no edema, no gallop, no JVD, no murmur Abdomen: normal bowel sounds, non tender, soft, no organomegaly Extremities: non-tender, normal inspection, no pedal edema, no calf tenderness , normal capillary refill, pelvis stable Neurologic/Psychiatric: classifications officer cc/cm II-XII nml as tested, alert, normal mood/affect, oriented x 3, + motor weakness (improving today, 0 out of 5 yesterday, today 2- 3 out of 5 in proximal legs, can wiggle toes), + sensory deficit (no sensation of light touch in feet bilaterally) Skin: normal color, warm/dry, no rash Lymphatic: no adenopathy Laboratory Results Last 24 Hours Test 09/21/16 05:48 White Blood Count 14.24 K/uL Red Blood Count 3.88 M/uL Hemoglobin 11.9 g/dL Hematocrit 34.7 % Mean Corpuscular Volume 89.4 fL Mean Corpuscular Hemoglobin 30.7 pg Mean Corpuscular Hemoglobin Concent 34.3 g/dl RDW Standard Deviation 43.0 fL RDW Coefficient of Variation 13.2 % Platelet Count 159 K/uL Mean Platelet Volume 11.0 fL Sodium Level 140 mmol/L Potassium Level 4.3 mmol/L Chloride Level 108 mmol/L Carbon Dioxide Level 26 mmol/L Anion Gap 6.0 mmol/L Blood Urea Nitrogen 26 mg/dl Creatinine 0.79 mg/dl Est Creatinine Clear Calc Drug Dose 45.9 ml/min Estimated GFR () 84.3 Estimated GFR (Non- 72.7 BUN/Creatinine Ratio 33.4 Random Glucose 137 mg/dl Calcium Level 8.9 mg/dl Magnesium Level 2.6 mg/dl Assessment and Plan 75-year-old female with presyncope and bilateral radicular leg pain and numbness , associated weakness and inability to stand but no loss of continence of bowel or bladder over baseline, progressed to complete paralysis of lower extremities bilaterally and sensation intact. MRI spinal cord showed spinal cord infarct vs myelitis - Cord infarct vs myelitis: changes seen on MRI in the distal 3cm of the spinal cord, favored infarct but myelitis possibility mild improvement today, moving proximal legs against gravity but not full strength or full range of motion, no movement against resistance can wiggle toes, press down however, now she has decreased sensation to light touch in her feet bilaterally, sensation still intact in more proximal legs no evidence of aortic dissection or thrombus on CTA chest LP done, studies ordered by neurology, protein 55, no signs of infection hypercoagulable work up ordered, West Nile testing, JOHN screen, echo ordered to rule out cardioembolic source of ischemia PT/OT ordered, will definitely need rehab, looking for [facility] possibly as early as tomorrow Dr. Krishnamurthy recommends discharging on steroid taper, received 3 doses of Solu Medrol 1gm daily also, should d/c on Plavix and aspirin, d/c the aspirin after one month prognosis improved slightly since she is moving legs today, only time will tell how much recovery she has discussed with patient and family that she may not return to baseline, they understand this will follow up with Dr. Krishnamurthy in neuro clinic in one month - Left subsegmental PE: very, very small according to radiologist, hesitant to treat dopplers negative for DVT bilaterally will elect to not treat, no chest pain, no dyspnea patient and family agree with plan Regarding her thyroid she is clinically euthyroid we'll maintain her Synthroid Heparin will be used for DVT prevention Level 1 Plan: can be discharged to [facility] tomorrow if accepted and insurance authorized needs to have echo prior to discharge, this is ordered today discharge on steroid taper, Aspirin and Plavix follow up with Dr. Krishnamurthy in clinic in one month
[2016-09-21 16:41] VITALS: BP 147/56; PULSE 64; TEMP 36.6; O2SAT 92
[2016-09-21] MEDS: ATORVASTATIN 20 MG TAB PO SCH (21:26)
[2016-09-21 22:52] VITALS: BP 145/65; PULSE 58; TEMP 36.7; O2SAT 94
[2016-09-22] VITALS (7 sets, daily range): BP systolic 144–179; BP diastolic 67–77; PULSE 50–69; TEMP 36.4–36.6; O2SAT 92–95
[2016-09-22] MEDS: LEVOTHYROXINE 75 MCG TAB PO SCH (05:51)
[2016-09-22] MEDS: CALCIUM 600MG + VIT D 400 IU TAB PO SCH (08:19)
[2016-09-22] MEDS: MULTIVITAMIN TAB PO SCH (08:19)
[2016-09-22] MEDS: METOPROLOL TARTRATE 50 MG TAB PO SCH ×2 (08:21→20:54)
[2016-09-22] MEDS: CLOPIDOGREL BISULFATE 75 MG TAB PO SCH (08:21)
[2016-09-22] MEDS: ASPIRIN 81 MG ECTAB PO SCH (08:21)
[2016-09-22] MEDS: FLUTICASONE PROPIONATE NA SPR 16 GM BTL NAE SCH (08:22)
[2016-09-22] MEDS: HEPARIN SOD 5000 UNIT/0.5 ML CARP SQ SCH ×2 (08:27→20:58)
--- NOTE | 2016-09-22 09:10 | Progress Note ---
Subjective Date of Service: Sep 22, 2016. Subjective Pt evaluation today including: conversation w/ patient, conversation w/ family , physical exam, chart review, lab review, review of studies, conversation w/ automotive service consultant, review of inpatient medication list Report feel mild frustrated because feeling bilateral lower extremity was getting better in strength but today is more weaker, Was able to move bilateral lower exts easily yesterday but was not able to lift from.bed , although able to move, but has difficulty to move bilateral lower extremities this morning, left side worse than right side Otherwise she feeling okay, sensations is the same in prostatitis Problem List Medical Problems: (1) Abnormal ECG Status: Acute (2) Falls Status: Acute (3) Low back pain Status: Acute (4) Lower extremity weakness Status: Acute Review of Systems Constitutional: + weakness, No fever, No chills, No sweats, No weight loss, No fatigue, No problem reported Eyes: No worsening of vision, No eye pain, No redness, No discharge, No diplopia ENT: No hearing loss, No unusual epistaxis, No nasal symptoms, No sore throat, No tinnitus, No dental problems, No trouble swallowing Respiratory: No cough, No sputum, No wheezing, No shortness of breath, No dyspnea on exertion, No dyspnea at rest, No hemoptysis Cardiac: No chest pain, No orthopnea, No PND, No edema, No claudication, No palpitations Abdomen: No pain, No nausea, No vomiting, No diarrhea, No constipation Musculoskeletal: No joint pain, No muscle pain, No swelling, No calf pain Female : No dysuria, No urinary frequency, No hematuria, No incontinence, No abnormal vaginal bleeding, No vaginal discharge Neurologic: + weakness, No memory loss, No paralysis, No numbness/tingling, No vertigo, No balance problems Psychiatric: No depression symptoms, No anhedonism, No anxiety, No insomnia, No substance abuse Heme: No abnormal bleeding/bruising, No clotting problems, No swollen lymph nodes, No night sweats Endo: No fatigue, No excessive thirst, No excessive urination Skin: No rash, No itch, No new/changing skin lesions, No color change, No bleeding Objective Vital Signs Date Time Temp Pulse Resp B/P (MAP) Pulse Ox O2 Delivery O2 Flow Rate FiO2 09/22/16 06:51 36.4 58 18 145/70 (95) 92 Room Air 09/21/16 23:23 Room Air 09/21/16 22:52 36.7 58 18 145/65 (91) 94 Room Air 09/21/16 16:41 36.6 64 16 147/56 (86) 92 Room Air 09/21/16 15:40 Room Air Physical Exam General Appearance: WD/WN, no apparent distress Eyes: normal inspection, PERRL, EOMI, sclerae normal ENT: normal ENT inspection, hearing grossly normal, pharynx normal Neck: supple, no adenopathy, thyroid normal, no JVD, no carotid bruits, trachea midline Respiratory/Chest: chest non-tender, lungs clear, normal breath sounds, no respiratory distress, no accessory muscle use Cardiovascular: regular rate, rhythm, no edema, no gallop, no JVD, no murmur Abdomen: normal bowel sounds, non tender, soft, no organomegaly, no pulsatile mass Extremities: normal range of motion, non-tender, normal inspection, no pedal edema, no calf tenderness, normal capillary refill, pelvis stable Neurologic/Psychiatric: screen making supervisor II-XII nml as tested, no motor/sensory deficits, alert, normal mood/affect, oriented x 3, + motor weakness (left lower extremity 3 -, right lower extremity 3 - stronger then left, and that'll lower extremity sensation light touch is intact, and symmetric) Skin: normal color, warm/dry, no rash Lymphatic: no adenopathy Assessment and Plan 75-year-old female was admitted on 09/18/2016 with presyncope and bilateral radicular leg pain and numbness, associated weakness and inability to stand but no loss of continence of bowel or bladder over baseline, progressed to complete paralysis of lower extremities bilaterally and sensation intact. MRI spinal cord showed spinal cord infarct vs myelitis - Cord infarct vs myelitis: changes seen on MRI in the distal 3cm of the spinal cord, favored infarct but myelitis possibility Was improving yesterday after she dose of Solu-Medrol IV , today reported subjective getting worse in the lower extremity strength moving proximal legs against gravity but not full strength or full range of motion, no movement against resistance can wiggle toes, press down however, now she has decreased sensation to light touch in her feet bilaterally , sensation still intact in more proximal legs no evidence of aortic dissection or thrombus on CTA chest LP done, studies ordered by neurology, protein 55, no signs of infection hypercoagulable work up ordered, West Nile testing, JOHN screen, echo ordered to rule out cardioembolic source of ischemia Discussed with Dr. Shepard, will give Solu-Medrol IV 1 dose more today, we'll tapering by Medrol Dosepak from tomorrow PT/OT ordered, need rehab, looking for [facility] possibly as early as tomorrow Dr. Krishnamurthy recommends discharging on steroid taper, received 3 doses of Solu Medrol 1gm daily, and we will give 1 dose more today also, should d/c on Plavix and aspirin, d/c the aspirin after one month proglossis guarded discussed with patient and family that she may not return to baseline, they understand this will follow up with Dr. Krishnamurthy in neuro clinic in one month - Left subsegmental PE: very, very small according to radiologist, hesitant to treat dopplers negative for DVT bilaterally Dr. Serrato talked to family and patient, elected to not treat, no chest pain , no dyspnea patient and family agree with plan Regarding her thyroid she is clinically euthyroid we'll maintain her Synthroid Heparin will be used for DVT prevention Level 1 Plan: Planning to discharge to [facility] tomorrow if accepted and insurance authorized echo is pending discharge on steroid taper, Aspirin and Plavix follow up with Dr. Krishnamurthy in clinic in one month I called to patient's daughter Shanon, updated her patient's conditions and care plan, answer all questions to her satisfaction Continued [facility] stay due to: home environment unsafe for pt Discharge planning: home
[2016-09-22] MEDS ORDERED: METHYLPREDNISOLONE IV 1,000 MG in DEXTROSE 5% 250ML 250 ML IV SCH (09:30)
--- NOTE | 2016-09-22 09:39 | Neurology Progress Notes ---
Neurology Progress Note Date of Service Sep 22, 2016. Subjective Follow-up for lower extremity weakness The patient is a 75-year-old female with a complaint of persistent bilateral lower extremity weakness, greater on the left. Her symptoms began acutely just prior to admission to the hospital and occurring after a prolonged car trip the day prior. She experienced associated sensory loss in the legs at symptom onset although this particular symptom has considerably improved. She also complains of associated urinary incontinence which has been persistent. Although her lower extremity weakness has been persistent, the patient does report modest overall improvement in her ability to move the legs. She admits that the strength in her right lower extremity is modestly better than that in the left. The patient also reports that she feels as if her left leg weakness is a bit weaker today than it had been yesterday. Her Solu-Medrol was stopped yesterday. History notable for recently diagnosed pulmonary embolism as well. Patient denies a prior history of thromboembolic disease. No known history of DVT. Objective Date Time Temp Pulse Resp B/P (MAP) Pulse Ox O2 Delivery O2 Flow Rate FiO2 09/22/16 08:05 56 09/22/16 06:51 36.4 58 18 145/70 (95) 92 Room Air 09/21/16 23:23 Room Air 09/21/16 22:52 36.7 58 18 145/65 (91) 94 Room Air 09/21/16 16:41 36.6 64 16 147/56 (86) 92 Room Air 09/21/16 15:40 Room Air Imaging: I reviewed the images and radiologist's interpretation of the recently completed thoracic spine MRI. There is evidence of an abnormality within the central aspect of the lower, distal aspect of the spinal cord measuring about 3 cm in longitudinal length. There is a faint associated focus of punctate enhancement within the lesion as well. The imaging characteristics are suggestive of spinal cord infarct. A focus of demyelination versus neoplasm not completely excluded. I reviewed this patient's previously completed brain MRI, done in 2012, as well. The study reveals a moderate degree of scattered, T2/flair hyperintensities within the brain parenchyma. Some of these lesions are oriented perpendicularly to the lateral ventricles. The differential diagnosis includes chronic small vessel ischemic change versus possibly demyelinating disease (per my review). I reviewed the results of the recently completed CSF analysis. Cell counts unremarkable. The protein is mildly elevated. Exam: The patient is well-developed elderly female, no acute distress. She is lying in bed. The patient is alert and fully oriented. Recent and remote memory intact. Speech pattern normal. Vocabulary normal. Visual tomas full to confrontation. Pupils equal round reactive to light. Eye movements normal. There is normal facial symmetry and strength. No facial droop. There is normal strength and tone for the upper extremities bilaterally. There is bilateral lower extremity weakness, greater on the left. Patient is able to flex at the right knee and hip against some resistance, strength 3-4 out of 5 proximally. Right ankle dorsiflexion and plantar flexion strength significantly reduced, however, probably one out of 5. Patient is weaker for the left lower extremity although she is able to slightly flex at the left hip and knee, strength probably 2 out of 5. Left ankle dorsiflexion and plantar strength 0 out of 5. Tone is normal to reduced to for the lower extremities. No abnormal movements observed. No atrophy or fasciculations observed. Sensation to light touch, temperature, vibration, and proprioception appears to be intact for both lower limbs. Deep tendon reflexes are 1-2+ for both lower extremities. There is no spasticity or clonus. Plantar responses equivocal, perhaps slightly upgoing on the left. Current Inpatient Medications Medications (Trade) Dose Ordered Sig/Ana Route Start Time Stop Time Status Last Admin Dose Admin Aspirin (Ecotrin Tab) 81 mg DAILY PO 09/19/16 09:00 10/19/16 08:59 09/22/16 08:21 81 MG Atorvastatin Calcium (Lipitor Tab) 20 mg HS PO 09/18/16 21:00 10/18/16 20:59 09/21/16 21:26 20 MG Fluticasone Propionate (Flonase Nasal [place]) 2 sprays DAILY GLORIA 09/19/16 09:00 10/19/16 08:59 09/19/16 08:56 2 SPRAYS Levothyroxine Sodium (Synthroid Tab) 75 mcg DAILYBB PO 09/19/16 06:00 10/19/16 05:59 09/22/16 05:51 75 MCG Metoprolol Tartrate (Lopressor Tab) 50 mg BID PO 09/18/16 21:00 10/18/16 20:59 09/21/16 21:25 50 MG Multivitamins (Multivitamin Tab) 1 tab DAILY PO 09/19/16 09:00 10/19/16 08:59 7/3/17 08:19 1 TAB Calcium/Vitamin D (Caltrate Plus Tab) 1 tab DAILY PO 09/19/16 09:00 10/19/16 08:59 09/22/16 08:19 1 TAB Heparin Sodium (Porcine) (Heparin Sq 5000 Unit/0.5ml) 5,000 unit Q12 SQ 09/18/16 21:00 10/18/16 20:59 09/22/16 08:27 5,000 UNIT Al Hydrox/Mg Hydrox/Simethicone (Maalox Max Susp) 15 ml Q4H PRN PO 09/18/16 14:00 10/18/16 13:59 Magnesium Hydroxide (Milk Of Magnesia Susp) 30 ml Q12H PRN PO 09/18/16 14:00 10/18/16 13:59 Ondansetron HCl (Zofran Inj) 4 mg Q6H PRN IV 09/18/16 14:00 10/18/16 13:59 Polyethylene (Miralax Powder Packet) 17 gm DAILY PRN PO 09/18/16 14:00 10/18/16 13:59 09/21/16 05:58 17 GM Morphine Sulfate (MoRPHine SULFATE INJ) 2 mg Q4H PRN IV 09/18/16 14:00 10/02/16 13:59 09/19/16 09:56 2 MG Morphine Sulfate (MoRPHine SULFATE INJ) 4 mg Q4H PRN IV 09/18/16 14:00 10/02/16 13:59 Oxycodone HCl (Roxicodone Immediate Rel Tab) 10 mg Q6 PRN PO 09/18/16 14:00 10/02/16 13:59 09/21/16 00:10 10 MG Gadobutrol (Gadavist) 6 mmol UD PRN IV 09/19/16 00:15 09/23/16 00:14 Ioversol (Optiray 320) 125 ml UD PRN IV 09/19/16 09:15 09/23/16 09:14 Clopidogrel Bisulfate (plAVix TAB) 75 mg QAM PO 09/21/16 09:00 10/21/16 08:59 09/22/16 08:21 75 MG Prednisone (PredniSONE TAB) 40 mg BID PO 09/22/16 09:00 10/22/16 08:59 09/22/16 08:27 40 MG Impression 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 Sensory function improved. This event occurs in the context of her recently diagnosed subsegmental pulmonary embolus as well. Therefore, a thromboembolic event would seem likely. Of course, an underlying demyelinating disorder such as multiple sclerosis may not be completely excluded in this individual. Plan Agree with thrombophilia testing as ordered. I think it would be of some value for this patient to have an up-to-date brain and cervical spine MRI completed to reassess for possible demyelinating disease. I will contact the lab to determine if we have enough CSF sample to send an MS profile as well. This patient may have one more day of IV Solu-Medrol, 1 g, to address her complaint of worsening leg weakness, followed by Medrol Dosepak taper. Case discussed with Dr. Schultz, hospitalist over the telephone this morning. Outpatient follow-up with Dr. Brown.
[2016-09-22] MEDS: OXYCODONE HCL IR 5 MG TAB (IMMEDIATE RELEASE) PO PRN (10:59)
--- NOTE | 2016-09-22 13:53 | DIAGNOSTIC IMAGING REPORT ---
MRI OF THE BRAIN COMBO CLINICAL HISTORY: Presyncope. Myelopathy. COMPARISON STUDY: CT of the brain dated 09/18/2016. MRI of the brain dated 12/21/2012. TECHNIQUE: MRI of the brain was performed utilizing various T1 and T2-weighted sequences in the axial, sagittal, and coronal planes. Contrast-enhanced sequences were acquired following the administration of 5.5 cc of Gadavist. Examination is performed using the multiple sclerosis protocol. FINDINGS: Brain parenchyma: There are age-related involutional changes noting mild to moderate patchy foci of T2 signal abnormality within the subcortical and periventricular White matter. There is no associated abnormal enhancement on the postcontrast images. There is no hemorrhage or mass effect. There is no restricted diffusion to suggest acute ischemia. No enhancing mass lesion is identified on the postcontrast images. Wong-white matter differentiation is preserved. No extra-axial fluid collection is seen. The cerebellar tonsils are normal in configuration. Ventricles, sulci, and cisterns: Prominent secondary to involutional change. Pituitary and sella: Unremarkable. Intracranial vasculature: Normal flow voids are maintained at the skull base. Orbits: The bony orbits are grossly intact. Orbital contents are normal in appearance noting bilateral ocular lens implants. Sinuses and mastoids: Clear. Calvarium: Unremarkable. Cervical cord: Partially visualized cervical spinal cord is normal in morphology and signal intensity. IMPRESSION: 1. No acute intracranial abnormality. 2. There are mild to moderate patchy foci of T2 signal abnormality within the subcortical and periventricular white matter. 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 A superimposed demyelinating process such as multiple sclerosis is considered unlikely but would be impossible to exclude by imaging. Electronically signed by: Jean-Paul Jain M.D. 09/22/2016 1:52 PM Dictated Date/Time: 09/22/2016 1:41 PM
--- NOTE | 2016-09-22 14:31 | DIAGNOSTIC IMAGING REPORT ---
CERVICAL SPINE COMBO HISTORY: 75-year-old female presents with radicular pain, leg weakness and presyncopal symptoms. COMPARISON: MRI brain 09/22/2016, CT cervical spine 09/18/2016 MRI brain 12/21/2012. TECHNIQUE: Multiplanar multisequence MRI of the cervical spine was obtained both with and without the use of 5.5 mL Gadavist IV contrast. FINDINGS: Posterior fossa structures appear to be unremarkable. The upper thorax demonstrates no gross abnormality. Endplate degenerative changes are present at several levels, notably at C4-C5 and C5-C6. Multilevel annular disc bulging with facet arthropathy and uncovertebral spurring is also present. Marked enhancing edema is present within the paraspinal musculature in a generally symmetric distribution, notably involving the semispinalis and splenius muscles extending from C2-T4, extending below the field of view. These findings are best seen on the sagittal STIR and postcontrast T1 images 6 through 15. There is no acute fracture, marrow replacing process or focal bone marrow edema. 4 mm retrolisthesis of C4 on C5 is unchanged from comparison study dated 09/18/2016 and is likely on a degenerative basis. Signal within the cord is within normal limits. No enhancing foci within the cord are seen to suggest demyelinating disease. C2-C3: No significant central canal or neuroforaminal narrowing. C3-C4: Facet arthropathy and mild intervertebral disc space narrowing with broad-based posterior disc osteophyte complex. No significant central canal or neuroforaminal narrowing. C4-C5: Severe intervertebral disc space narrowing with 4 mm retrolisthesis. Circumferential posterior disc osteophyte complex formation favoring the left lateral recess is again seen with associated facet arthropathy. These changes cause moderate central canal and mild left neuroforaminal stenosis. Right neural foramen is generally patent. C5-C6: Moderate intervertebral disc space narrowing with posterior disc osteophyte complex seen centrally and within the right paracentral space. Changes cause mild to moderate central canal and and mild right neuroforaminal narrowing. Left neural foramen is generally patent. C6-C7: Moderate intervertebral disc space narrowing with broad-based posterior disc osteophyte complex and facet arthropathy. There is effacement of the ventral thecal sac without significant central canal or neural foraminal narrowing. C7-T1: Facet arthropathy without central canal or neuroforaminal narrowing. T1-T2: Mild posterior disc bulge without significant central canal or neuroforaminal narrowing. Imaged upper thoracic levels appear unremarkable. IMPRESSION: 1. Marked enhancing edema within the paraspinal musculature extending from C2-T4 extending caudal to the field of view is present within a generally symmetric distribution. These findings are nonspecific. Differential considerations would include muscle strain or myositis. 2. Multilevel discogenic degeneration and facet arthropathy as above with intervertebral disc space narrowing most pronounced at the C4-C5 and C5-C6 levels. 3. At C4-C5 there is moderate central canal and mild left neural foraminal stenosis. At C5-C6 there is mild to moderate central canal and mild right neural foraminal narrowing. 4. No evidence of demyelinating disease. Electronically signed by: Juan Salas 09/22/2016 2:30 PM Dictated Date/Time: 09/22/2016 1:56 PM
[2016-09-22] MEDS ORDERED: NURSING VERBAL MED ORDER ONE (15:30)
[2016-09-22] MEDS ORDERED: LISINOPRIL 2.5 MG TAB PO ONE (15:45)
[2016-09-22] MEDS ORDERED: ENALAPRILAT IV 0.625 MG in DEXTROSE 5% 25ML 25 ML IV SCH (15:45)
[2016-09-22] MEDS: POLYETHYLENE (MIRALAX) 17 GM PACK PO PRN (17:32)
[2016-09-22] MEDS ORDERED: LSN25 PO (18:36)
[2016-09-22] MEDS ORDERED: PLV75 PO (18:36)
--- NOTE | 2016-09-22 18:36 | Discharge Instructions ---
Discharge Instructions Date of Service Sep 22, 2016. Admission Reason for Admission: Neurocardiogenic Pre Syncope,Radicular Leg Discharge Discharge Diagnosis / Problem: lower spinal cord infarct Discharge Goals Goal(s): Decrease discomfort, Increase independence Activity Recommendations Activity Limitations: as noted below (bedrest) . Instructions / Follow-Up Instructions / Follow-Up you possible have lower spinal cord infarct resulting underlying demyelinating disorder such as multiple sclerosis may not be completely excluded I am transferring you the [facility] follow up with your pcp and Dr. Brown after discharging from [facility] Current Hospital Diet Patient's current hospital diet: Regular Diet Discharge Diet Recommended Diet: AHA Diet (Heart Healthy) Procedures Procedures Performed: yes Pending Studies Studies pending at discharge: yes List of pending studies: west nile virus, etc Laboratory Results Hemoglobin A1c Test 09/20/16 06:17 Range/Units Estimated Average Glucose 111 mg/dl Hemoglobin A1c 5.5 4.5-5.6 % Lipid Panel Test 09/20/16 06:17 Range/Units Triglycerides Level 87 0-150 mg/dl Cholesterol Level 148 0-200 mg/dl HDL Cholesterol 65 mg/dl Cholesterol/HDL Ratio 2.3 LDL Cholesterol, Calculated 66 mg/dl Medical Emergencies . Who to Call and When: Medical Emergencies: If at any time you feel your situation is an emergency, please call 911 immediately. . Non-Emergent Contact Non-Emergency issues call your: Primary Care Provider, Neurologist . . "Provider Documentation" section prepared by Son Schultz. . VTE Core Measure Inpt VTE Proph given/why not?: Unfractionated heparin SQ
--- NOTE | 2016-09-22 18:50 | Discharge Summary ---
Discharge Summary Date of Service Sep 22, 2016. Discharge Summary Admission Date: Sep 18, 2016 at 13:56 Discharge Date: Sep 22, 2016 Discharge Disposition: Acute care facility Principal Diagnosis: lower spinal cord infarct Problems/Secondary Diagnoses: syncope Immunizations: Have You Had Influenza Vaccine: No History of Tetanus Vaccine?: Yes History of Pneumococcal: ALLERGIC TO PNEUMOVAX History of Hepatitis B Vaccine: No Procedures: LP, MRI of brain and spine Consultations: neuro Medication Reconciliation New Medications: Clopidogrel Bisulfate (Clopidogrel) 75 Mg Tab 75 MG PO QAM for 1 Day, #1 TAB Lisinopril (Lisinopril) 2.5 Mg Tab 2.5 MG PO DAILY for 1 Day, #1 TAB Continued Medications: Aspirin (Aspirin Ec) 81 Mg Tab 81 MG PO DAILY Atorvastatin (Lipitor) 20 Mg Tab 20 MG PO HS, 0 Refills Calcium Carbonate-Vitamin D (Calcium 600+D) 1 Tab Tab 1 TAB PO DAILY Fluticasone Propionate (Nasal) (Flonase Allergy Relief) 50 Mcg/Act Spr 2 SPRAYS GLORIA DAILY Levothyroxine Sodium (Synthroid) 75 Mcg Tab 75 MCG PO DAILY, TAB Metoprolol Tartrate (Lopressor) (Lopressor) 50 Mg Tab 50 MG PO BID, 0 Refills Multivitamin (Multivitamin) Tab 1 TAB PO DAILY, 0 Refills Discharge Exam reported vicky lower ext weaker weaker than this am Review of Systems: Constitutional: + weakness, No fever, No chills, No sweats, No weight loss, No fatigue, No problem reported Eyes: No worsening of vision, No eye pain, No redness, No discharge, No diplopia, No problem reported ENT: No hearing loss, No unusual epistaxis, No nasal symptoms, No sore throat, No tinnitus, No dental problems, No trouble swallowing, No problem reported Respiratory: No cough, No sputum, No wheezing, No shortness of breath, No dyspnea on exertion, No dyspnea at rest, No hemoptysis, No problem reported Cardiovascular: No chest pain, No orthopnea, No PND, No edema, No claudication, No palpitations, No problem reported Abdomen: No pain, No nausea, No vomiting, No diarrhea, No constipation, No GI bleeding, No problem reported Musculoskeletal: No joint pain, No muscle pain, No swelling, No calf pain, No problem reported Genitourinary - Female: No dysuria, No urinary frequency, No urinary urgency , No urinary incontinence, No urinary retention, No hematuria, No dysmenorrhea, No menorrhagia, No metrorrhagia, No rash, No vaginal bleeding, No vaginal discharge, No vaginal itching, No vulvodynia, No , No problem reported Neurologic: + paralysis, + weakness Psychiatric: No depression symptoms, No anhedonism, No anxiety, No insomnia , No substance abuse, No problem reported Endocrine: No fatigue, No excessive thirst, No excessive urination, No problem reported Hematologic / Lymphatic: No abnormal bleeding/bruising, No clotting problems , No swollen lymph nodes, No night sweats, No problem reported Integumentary: No rash, No itch, No new/changing skin lesions, No color change, No bleeding, No problem reported Physical Exam: General Appearance: WD/WN, no apparent distress Eyes: normal inspection, PERRL, EOMI ENT: normal ENT inspection, hearing grossly normal, TMs normal Neck: supple, no adenopathy, thyroid normal Respiratory/Chest: chest non-tender, normal breath sounds, no respiratory distress, no accessory muscle use, + decreased breath sounds Cardiovascular: regular rate, rhythm, no edema, no gallop, no JVD Abdomen / GI: normal bowel sounds, non tender, soft, no organomegaly, no pulsatile mass Extremities: normal inspection, no calf tenderness, normal capillary refill , no pedal edema, normal range of motion Neurologic/Psychiatric: 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 MRI spinal cord showed spinal cord infarct vs myelitis - Cord infarct vs myelitis: changes seen on MRI in the distal 3cm of the spinal cord, favored infarct but myelitis possibility has Left subsegmental PE at the same time, possible thromboembolic event. Was improving yesterday after she dose of Solu-Medrol IV , today reported subjective getting worse in the lower extremity strength moving proximal legs against gravity but not full strength or full range of motion, no movement against resistance can wiggle toes, press down however, now she has decreased sensation to light touch in her feet bilaterally , sensation still intact in more proximal legs no evidence of aortic dissection or thrombus on CTA chest LP done, studies ordered by neurology, protein 55, no signs of infection hypercoagulable work up ordered, West Nile testing, JOHN screen, echo ordered to rule out cardioembolic source of ischemia Discussed with Dr. Shepard this am, gave Solu-Medrol IV 1 dose more today, was planning tapering by Medrol Dosepak from tomorrow PT/OT ordered, need rehab, looking for [facility] possibly as early as tomorrow Dr. Krishnamurthy recommends discharging on steroid taper, received 3 doses of Solu Medrol 1gm daily, and we will give 1 dose more today also, should d/c on Plavix and aspirin, d/c the aspirin after one month proglossis guarded discussed with patient and family that she may not return to baseline, they understand this will follow up with Dr. Krishnamurthy in neuro clinic in one month - Left subsegmental PE: very, very small according to radiologist, hesitant to treat dopplers negative for DVT bilaterally Dr. Serrato talked to family and patient, elected to not treat, no chest pain , no dyspnea patient and family agree with plan Regarding her thyroid she is clinically euthyroid we'll maintain her Synthroid per Dr. 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 context of her recently diagnosed subsegmental pulmonary embolus as well. Therefore, a thromboembolic event would seem likely, an underlying demyelinating disorder such as multiple sclerosis may not be completely excluded in this individual. pt has brain, cervical spine, T, L spine MRI done this pm , in family meeting, pt 's vicky legs obvious weaker that this am , d/w' ed Dr. Shepard, recs to transfer, pt and fam agreed Talked to [facility] [place] Dr. Boyd, he accept pt, pt will go by bls. Instructions / Follow-Up you possible have lower spinal cord infarct resulting underlying demyelinating disorder such as multiple sclerosis may not be completely excluded I am transferring you the [facility] follow up with your pcp and Dr. Brown after discharging from [facility] Total Time Spent: Greater than 30 minutes This includes examination of the patient, discharge planning, medication reconciliation, and communication with other providers. Discharge Instructions Please refer to the electronic Patient Visit Report (Discharge Instructions) for additional information. Additional Copies To Katheryn Brown D.O.; Mark Claudio M.D.
[2016-09-22] MEDS: ATORVASTATIN 20 MG TAB PO SCH (20:52)
--- NOTE | 2016-09-22 21:00 | ECHOCARDIOGRAM REPORT ---
*NOTICE TO RECEIVING CONSTITUTION PARTY AGENCY This information is strictly Confidential and protected under [place] law. [place] law prohibits you from making any further disclosure of this information unless further disclosure is expressly permitted by the written consent of the person to whom it pertains or is authorized by law. A general authorization for the release of medical or other information is not sufficient for this purpose. Hospital accepts no responsibility if the information is made available to any other person, INCLUDING THE PATIENT. Interpretation Summary * Name: CARON WELDON Study Date: 09/22/2016 02:01 PM * Patient Location[place] [place]\N376\S\1 HR: 60 * : 1940 (M/d/yyyy) Gender: Female Height: 59 in * Age: 75 yrs Ethnicity: [place] Weight: 121 lb * Ordering Physician: Katheryn Brown * Referring Physician: Self, Referred * * BSA: 1.5 m2 * Normal biventricular systolic function. * Moderate concentric left ventricular hypertrophy. * Left ventricular diastolic dysfunction. * Mild aortic regurgitation. * Normal chamber dimensions. * No cardiac source of emboli noted. Procedure Details * A saline contrast injection was performed to assess for cardiac shunting. * The attending nurse who injected the saline contrast was Catherine Choi RN. * The injection was performed through an intravenous line in the right arm. * A total of 20 cc of agitated saline was given. Left Ventricle * The left ventricle is normal in size. * There is no thrombus. * There is moderate concentric left ventricular hypertrophy. * Ejection Fraction = 65-70%. * A full diastolic examination was done with clinical findings of Class I diastolic dysfunction. * The left ventricular wall motion is normal. Right Ventricle * The right ventricle is normal in size and function. Atria * The left atrial size is normal. * Right atrial size is normal. * Injection of contrast documented no interatrial shunt. Mitral Valve * The mitral valve is normal. * There is no mitral valve stenosis. * There is no mitral regurgitation noted. Tricuspid Valve * The tricuspid valve is not well visualized, but is grossly normal. * There is no tricuspid stenosis. * Significant tricuspid regurgitation is absent. Aortic Valve * The aortic valve is trileaflet. * The aortic valve opens well. * Aortic stenosis is absent. * Mild aortic regurgitation. Pulmonic Valve * The pulmonary valve is inadequately visualized, but the Doppler data is adequate for interpretation. * There is no pulmonic valvular stenosis. * There is no pulmonic valvular regurgitation. Great Vessels * The aortic root is normal size. Pericardium/Pleural * There is no pericardial effusion. Great Vessels * Normal inferior vena cava diameter and respiratory variation suggests normal central venous pressure. MMode 2D Measurements and Calculations IVSd 1.5 cm LVIDd 4.4 cm LVIDs 2.6 cm LVPWd 1.5 cm IVS/LVPW 0.99 FS 39.8 % EDV(Teich) 87.4 ml ESV(Teich) 25.6 ml EF(Teich) 70.6 % EDV(cubed) 84.8 ml ESV(cubed) 18.5 ml EF(cubed) 78.2 % LV mass(C)d 256.4 grams LV mass(C)dI 172.2 grams/m\S\2 SV(Teich) 61.7 ml SI(Teich) 41.4 ml/m\S\2 SV(cubed) 66.3 ml SI(cubed) 44.5 ml/m\S\2 Ao root diam 2.7 cm Ao root area 5.7 cm\S\2 EDV(MOD-sp4) 76.6 ml ESV(MOD-sp4) 13.8 ml EF(MOD-sp4) 82.0 % EDV(MOD-sp2) 33.7 ml ESV(MOD-sp2) 13.4 ml EF(MOD-sp2) 60.3 % SV(MOD-sp4) 62.9 ml SI(MOD-sp4) 42.2 ml/m\S\2 SV(MOD-sp2) 20.3 ml SI(MOD-sp2) 13.6 ml/m\S\2 Doppler Measurements and Calculations MV E max faby 58.8 cm/sec MV A max faby 61.5 cm/sec MV E/A 0.96 MV dec time 0.27 sec Ao V2 max 125.5 cm/sec Ao max PG 6.3 mmHg Ao max PG (full) 2.0 mmHg LV V1 max PG 4.3 mmHg LV V1 max 103.4 cm/sec
[2016-09-23 00:15] VITALS: PULSE 61
[2016-09-23] MEDS: LEVOTHYROXINE 75 MCG TAB PO SCH (05:59)
[2016-09-23 06:31] LABS: HEMATOCRIT 37.4 % (37-47); MEAN CELL VOLUME 89.9 fL (80-100); MEAN CORPUSCULAR HGB CONC 33.4 g/dl (32-36); MEAN PLATELET VOLUME 11.2 fL (7.4-10.4); PLATELET COUNT 181 K/uL (130-400); RED BLOOD COUNT 4.16 M/uL (4.2-5.4); WHITE BLOOD COUNT 10.89 K/uL (4.8-10.8)
[2016-09-23 07:01] VITALS: BP 183/87; PULSE 90; TEMP 36.6; O2SAT 93
[2016-09-23 07:07] LABS: BUN/CREATININE RATIO 30.9 (10-20); CALCIUM 8.6 mg/dl (8.5-10.1); CREATININE 0.73 mg/dl (0.60-1.20); MAGNESIUM 2.6 mg/dl (1.8-2.4)
[2016-09-23] MEDS ORDERED: ENALAPRILAT IV 1.25 MG in DEXTROSE 5% 25ML 25 ML IV PRN (07:15)
[2016-09-23] MEDS: CLOPIDOGREL BISULFATE 75 MG TAB PO SCH (08:29)
[2016-09-23] MEDS: MULTIVITAMIN TAB PO SCH (08:29)
[2016-09-23] MEDS: CALCIUM 600MG + VIT D 400 IU TAB PO SCH (08:29)
[2016-09-23] MEDS: METOPROLOL TARTRATE 50 MG TAB PO SCH (08:29)
[2016-09-23] MEDS: ASPIRIN 81 MG ECTAB PO SCH (08:29)
[2016-09-23] MEDS: HEPARIN SOD 5000 UNIT/0.5 ML CARP SQ SCH (08:32)
[2016-09-23] MEDS: FLUTICASONE PROPIONATE NA SPR 16 GM BTL NAE SCH (08:33)
[2016-09-23] MEDS ORDERED: LISINOPRIL 2.5 MG TAB PO SCH (09:00)
[2016-09-23] MEDS ORDERED: LISINOPRIL 5 MG TAB PO SCH (09:00)
[2016-09-23 09:30] VITALS: BP 160/81; PULSE 61; O2SAT 95
--- NOTE | 2016-09-23 11:58 | Medical Student: [facility] ---
Med Student Progress Note Date of Service Sep 23, 2016. Subjective Pt evaluation today including: conversation w/ patient, conversation w/ family , physical exam, chart review, lab review, review of studies, review of inpatient medication list Pain: 0/10 Neda Fletcher is a 75 year old female that was admitted to the hospital on with presyncope and bilateral radicular leg pain and weakness. On 09/18 , Ms Fletcher was at her house, attempted to stand from a seated position, her legs "felt like rubber," and then she fell as her legs could not support her. She was able to call one of her children for help, states that she then lost consciousness, and has difficulty recalling the rest of that day. Weakness and overall feeling of wellness started to improve per her report on 09/21 after a dose of Solu-Medrol, but Wednesday 08/23, she reports worsening symptoms of weakness in her lower extremities. She reports during our conversation today that she feels about the same as yesterday. Review of Systems Constitutional: + weight loss (4.4 kg since 09/18), + weakness (bilateral lower extremities), No fever, No chills, No sweats Eyes: No worsening of vision, No problem reported ENT: No hearing loss, No problem reported Respiratory: No shortness of breath, No dyspnea at rest, No problem reported Cardiac: No chest pain, No orthopnea, No edema, No problem reported Abdomen: + constipation Musculoskeletal: + see HPI, No problem reported Female : + problem reported (can feel when she urinates, but cannot feel urge to urinate) Neurologic: + paralysis, + weakness Psychiatric: No problem reported Heme: No problem reported Endo: No problem reported Skin: No problem reported Objective Vital Signs Date Time Temp Pulse Resp B/P (MAP) Pulse Ox O2 Delivery O2 Flow Rate FiO2 09/23/16 07:01 36.6 90 19 183/87 (119) 93 Room Air 09/23/16 00:15 61 09/22/16 22:50 36.6 50 16 144/68 (93) 95 Room Air 09/22/16 20:50 65 161/67 (98) 09/22/16 20:30 Room Air 09/22/16 19:27 67 162/76 (104) 09/22/16 19:25 69 179/77 (111) 09/22/16 18:38 36.4 58 16 93 Room Air 09/22/16 15:22 36.4 58 16 173/77 (109) 93 Room Air Physical Exam General Appearance: WD/WN, no apparent distress Eyes: bilateral eyes normal inspection, bilateral eyes PERRL, bilateral eyes EOMI ENT: normal ENT inspection, hearing grossly normal, TMs normal, pharynx normal Neck: supple, no adenopathy, thyroid normal Respiratory/Chest: chest non-tender, normal breath sounds, no respiratory distress Cardiovascular: regular rate, rhythm, no edema, no gallop, no murmur Abdomen: normal bowel sounds (active bowel sounds), non tender, + pertinent finding (firm, stool) Extremities: no pedal edema, no calf tenderness, + pertinent finding (failed to move toes when prompted) Neurologic/Psychiatric: sketch maker II-XII nml as tested, alert, normal mood/affect, oriented x 3, + motor weakness (bilateral lower extremity, 2/5 dorsi/plantar flexion, 2/5 knee flex/extension, 2/5 hip flex/extension) Skin: normal color, warm/dry, no rash Lymphatic: no adenopathy Laboratory Results Last 24 Hours Test 09/23/16 05:50 White Blood Count 10.89 K/uL Red Blood Count 4.16 M/uL Hemoglobin 12.5 g/dL Hematocrit 37.4 % Mean Corpuscular Volume 89.9 fL Mean Corpuscular Hemoglobin 30.0 pg Mean Corpuscular Hemoglobin Concent 33.4 g/dl RDW Standard Deviation 44.1 fL RDW Coefficient of Variation 13.5 % Platelet Count 181 K/uL Mean Platelet Volume 11.2 fL Sodium Level 141 mmol/L Potassium Level 4.0 mmol/L Chloride Level 106 mmol/L Carbon Dioxide Level 29 mmol/L Anion Gap 6.0 mmol/L Blood Urea Nitrogen 23 mg/dl Creatinine 0.73 mg/dl Est Creatinine Clear Calc Drug Dose 49.6 ml/min Estimated GFR () 92.7 Estimated GFR (Non- 80.0 BUN/Creatinine Ratio 30.9 Random Glucose 127 mg/dl Calcium Level 8.6 mg/dl Magnesium Level 2.6 mg/dl Medications Medications Dose Route/Sig Max Daily Dose Days Date Category Lisinopril 2.5 Mg Tab 2.5 Mg PO DAILY 1 09/22/16 Rx Clopidogrel (Clopidogrel Bisulfate) 75 Mg Tab 75 Mg PO QAM 1 09/22/16 Rx Flonase Allergy Relief (Fluticasone Propionate (Nasal)) 50 Mcg/Act Spr 2 Sprays GLORIA DAILY 09/18/16 Reported Aspirin Ec (Aspirin) 81 Mg Tab 81 Mg PO DAILY 09/18/16 Reported Synthroid (Levothyroxine Sodium) 75 Mcg Tab 75 Mcg PO DAILY 06/21/14 Reported Calcium 600+D (Calcium Carbonate-Vitamin D) 1 Tab Tab 1 Tab PO DAILY 06/21/14 Reported Lopressor (Metoprolol Tartrate) 50 Mg Tab 50 Mg PO BID 05/22/09 Reported Lipitor (Atorvastatin Calcium) 20 Mg Tab 20 Mg PO HS 05/22/09 Reported Multivitamin (Multivitamins) Tab 1 Tab PO DAILY 10/11/06 Reported Medications Dose Route/Sig Max Daily Dose Days Date Category Lisinopril 2.5 Mg Tab 2.5 Mg PO DAILY 1 09/22/16 Rx Clopidogrel (Clopidogrel Bisulfate) 75 Mg Tab 75 Mg PO QAM 1 09/22/16 Rx Flonase Allergy Relief (Fluticasone Propionate (Nasal)) 50 Mcg/Act Spr 2 Sprays GLORIA DAILY 09/18/16 Reported Aspirin Ec (Aspirin) 81 Mg Tab 81 Mg PO DAILY 09/18/16 Reported Synthroid (Levothyroxine Sodium) 75 Mcg Tab 75 Mcg PO DAILY 06/21/14 Reported Calcium 600+D (Calcium Carbonate-Vitamin D) 1 Tab Tab 1 Tab PO DAILY 06/21/14 Reported Lopressor (Metoprolol Tartrate) 50 Mg Tab 50 Mg PO BID 05/22/09 Reported Lipitor (Atorvastatin Calcium) 20 Mg Tab 20 Mg PO HS 05/22/09 Reported Multivitamin (Multivitamins) Tab 1 Tab PO DAILY 10/11/06 Reported Assessment and Plan Assessment and Plan: Assessment: 1. 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 Left Subsegmental PE 3. Hypothyroidism Plan: 1. MRI findings of hyperintensity and mild expansion of the final 3cm of the spinal cord are indicative of a spinal infarct. An additional lesion was appreciated in the same area, but it may be artifact, making demyelination or neoplasm less likely, but not ruled out. She will be discharged on a steroid taper, discharged on Plavix and aspirin, discontinuing the aspirin after 1 month. Ms. Fletcher and family were educated that Neda may not return to baseline, and that she will follow up with Dr. Brown at the neurology clinic in [address] revealed a small Subsegmental PE in the patient's left lower lobe. Doppler studies were negative for DVT bilaterally. Because of the size of the PE and patient's lack of chest pain or shortness of breath, Dr. Serrato spoke with the family and they decided not to treat. 3. Patient is euthyroid, maintain levothyroxine @1000 on 09/23/2016 Neda was transferred to [facility] in the care of Dr. Boyd. She is to travel by [facility]. Continued [facility] stay due to: ambulation difficulties, home environment unsafe for pt Discharge planning: home, other (transfer to [facility] for second opinion)
[2016-09-24 08:12] LABS: ANTI-SS-A <1.0 NEG AI (<1.0 NEG); ANTI-SS-B <1.0 NEG AI (<1.0 NEG)
[2016-09-25 23:06] LABS: B2 GLYCOPROTEIN IGA <9 SAU (<=20); B2 GLYCOPROTEIN IGG <9 SGU (<=20); B2 GLYCOPROTEIN IGM <9 SMU (<=20); COXSACKIE A10 <1:8; COXSACKIE A16 <1:8; COXSACKIE A2 <1:8; COXSACKIE A4 <1:8; COXSACKIE A7 <1:8; COXSACKIE A9 <1:8; COXSACKIE B1 <1:8 (<1:8); COXSACKIE B2 <1:8 (<1:8); COXSACKIE B3 <1:8 (<1:8); COXSACKIE B4 <1:8 (<1:8); COXSACKIE B5 <1:8 (<1:8); LUPUS ANTICOAGULANT** TC36573X Negative (Negative)
[2016-09-29 15:28] LABS: CMV DNA PCR QUANT SOURCE CSF; CMV DNA QN REAL TIME PCR <200 IU/mL (<200); LYME DNA PCR CSF OR SYNOVIAL Not detected (Not Detected); LYME DNA SOURCE CSF
== END 2016-09-23 10:53 | disposition short-term general hospital (02) | DRG 91 ==
LOC: EDBD 09:06 → C.EDA 09:07 → C.2E 13:56 → ENRESERV 14:05 → EDBEDREQ 14:16 → EDBEDREQSVC 09-20 16:19 → ENRESERV 09-20 16:38 → C.MSN 09-20 18:43
PROVIDERS: ADMIT Internal Medicine; ATTEND Hospitalist
PROC: 009U3ZX Drainage of Spinal Canal, Percutaneous Approach, Diagnostic (ICD-10-PCS; principal; 2016-09-19)
DX: G95.11 Acute infarction of spinal cord (embolic) (nonembolic) (principal); I26.99 Other pulmonary embolism without acute cor pulmonale; G82.22 Paraplegia, incomplete; E78.5 Hyperlipidemia, unspecified; I10 Essential (primary) hypertension; R29.6 Repeated falls; E03.9 Hypothyroidism, unspecified; Z79.82 Long term (current) use of aspirin; E87.6 Hypokalemia; N31.9 Neuromuscular dysfunction of bladder, unspecified; R32 Unspecified urinary incontinence; Y92.009 Unspecified place in unspecified non-institutional (private) residence as the place of occurrence of the external cause; W19.XXXA Unspecified fall, initial encounter

== ENCOUNTER → 2017-01-09 | Outpatient (CLI) | payer BC ==
[~2017-01-09] MED LIST changes: -ASPCH81; +ASPI81TA28 PO; -FLNIN NAE; +FLUT0.15 NAE; +LSN25 PO; -MELO7.5T6 PO; +PLV75 PO
--- NOTE | 2017-01-09 12:18 | DIAGNOSTIC IMAGING REPORT ---
(RENAL)RETROPERITON COMP HISTORY: 76 years-old Female NEURO MUSCULAR DYSFUNCTION COMPARISON: CT abdomen and pelvis 01/19/2008 TECHNIQUE: Multiple real-time sonographic images of the kidneys and urinary bladder were obtained assessing grayscale appearance and color flow FINDINGS: Right kidney measures 10.0 x 3.9 x 5.9 cm. There is mild prominence of the right renal pelvis without significant calyceal dilation. No obstructing stone or mass identified. Cortical medullary differentiation preserved. Left kidney measures 10.3 x 4.5 x 5.5 cm and is unremarkable without hydronephrosis, renal calculi or focal mass lesion. Cortical medullary differentiation preserved. Partially collapsed urinary bladder is within normal limits with bilateral ureteral jets documented. IMPRESSION: 1. Mild prominence of the right renal pelvis without significant calyceal dilation, obstructing stone or lesion identified. Bilateral kidneys are otherwise unremarkable. 2. Partially collapsed urinary bladder is within normal limits. The above report was generated using voice recognition software. It may contain grammatical, syntax or spelling errors. Electronically signed by: Juan Salas M.D. 01/09/2017 12:16 PM Dictated Date/Time: 01/09/2017 12:12 PM
== END | disposition home or self-care (01) ==
LOC: C.ULTR 11:41
PROVIDERS: ATTEND Nurse Practitioner
DX: G82.22 Paraplegia, incomplete (principal); N31.9 Neuromuscular dysfunction of bladder, unspecified

== ENCOUNTER → 2017-02-20 | Outpatient (CLI) | payer BC ==
--- NOTE | 2017-02-20 13:08 | DIAGNOSTIC IMAGING REPORT ---
L HAND MIN 3 VIEWS ROUTINE CLINICAL HISTORY: S69.92XA Injury of hand, leftPlease xray and and fingers trauma COMPARISON: None. DISCUSSION: Oblique fracture fourth metacarpal. Mild bony distraction. Mild bony angulation. No evidence of dislocation. Moderate degenerative change of all remaining osseous structures. No additional acute abnormality. IMPRESSION: 1. Oblique moderately angled and distracted fracture midshaft fourth metacarpal. 2. No evidence of dislocation. 3. Moderate generalized degenerative change throughout all remaining osseous structures. The above report was generated using voice recognition software. It may contain grammatical, syntax or spelling errors. Electronically signed by: Stanislav Pepper M.D. 02/20/2017 1:07 PM Dictated Date/Time: 02/20/2017 1:06 PM
== END | disposition home or self-care (01) ==
LOC: C.RAD 12:39
PROVIDERS: ATTEND Physician Assistant Medical
DX: S62.325A Displaced fracture of shaft of fourth metacarpal bone, left hand, initial encounter for closed fracture (principal); X58.XXXA Exposure to other specified factors, initial encounter; M19.042 Primary osteoarthritis, left hand

== ENCOUNTER → 2017-03-20 | Outpatient (CLI) | payer BC ==
[2017-03-20 16:55] LABS: BASO % 0.3 %; BASO ABS # 0.02 K/uL (0-0.2); EOS % 1.4 %; EOS ABS # 0.09 K/uL (0-0.5); HEMOGLOBIN 13.6 g/dL (12.0-16.0); LYMPH ABS # 1.44 K/uL (1.2-3.4); MEAN CORPUSCULAR HEMOGLOBIN 32.3 pg (25-34); MONO % 8.3 %; MONO ABS # 0.52 K/uL (0.11-0.59); NEUT ABS # 4.18 K/uL (1.4-6.5); PLATELET COUNT 186 K/uL (130-400); RED CELL DISTRIBUTION WIDTH CV 13.3 % (11.5-14.5); RED CELL DISTRIBUTION WIDTH SD 45.3 fL (36.4-46.3); WHITE BLOOD COUNT 6.25 K/uL (4.8-10.8)
[2017-03-20 17:16] LABS: ALBUMIN 3.8 gm/dl (3.4-5.0); ALT/SGPT 26 U/L (12-78); AST/SGOT 23 U/L (15-37); BLOOD UREA NITROGEN 20 mg/dl (7-18); CALCIUM 9.1 mg/dl (8.5-10.1); CARBON DIOXIDE 31 mmol/L (21-32); CREATININE 0.63 mg/dl (0.60-1.20); GLUCOSE 101 mg/dl (70-99); POTASSIUM 3.9 mmol/L (3.5-5.1); SODIUM 140 mmol/L (136-145)
[2017-03-20 17:25] LABS: ALKALINE PHOSPHATASE 63 U/L (45-117); TOTAL PROTEIN 7.1 gm/dl (6.4-8.2)
== END | disposition home or self-care (01) ==
LOC: C.LABBFT 14:22
PROVIDERS: ATTEND Internal Medicine
DX: R63.4 Abnormal weight loss (principal)

== ENCOUNTER → 2017-04-08 | Outpatient (CLI) | payer BC ==
--- NOTE | 2017-04-08 14:42 | DIAGNOSTIC IMAGING REPORT ---
L KNEE 1 OR 2 VIEWS ROUTINE CLINICAL HISTORY: M25.562 Left knee [id number] COMPARISON: None. DISCUSSION: The bones are mildly osteopenic. No fractures or dislocations are visualized. There are no erosive or destructive changes. The joint spaces appear relatively well preserved for age. IMPRESSION: Osteopenia. No acute fractures identified. Electronically signed by: Dane Turpin M.D. 04/08/2017 2:41 PM Dictated Date/Time: 04/08/2017 2:40 PM
== END | disposition home or self-care (01) ==
LOC: C.RAD 13:59
PROVIDERS: ATTEND Internal Medicine
DX: M25.562 Pain in left knee (principal); M85.862 Other specified disorders of bone density and structure, left lower leg

== ENCOUNTER → 2017-05-28 | Outpatient (CLI) | payer BC | END | disposition home or self-care (01) | LOC: C.MAMM 13:02 | PROVIDERS: ATTEND Internal Medicine | DX: M81.0 Age-related osteoporosis without current pathological fracture (principal); Z87.81 Personal history of (healed) traumatic fracture; M85.89 Other specified disorders of bone density and structure, multiple sites ==

== ENCOUNTER → 2017-06-03 | Outpatient (CLI) | payer BC ==
--- NOTE | 2017-06-03 15:37 | MAMMOGRAPHY REPORT ---
BILATERAL DIGITAL SCREENING MAMMOGRAM TOMOSYNTHESIS WITH CAD: 06/03/2017 CLINICAL HISTORY: Routine screening. TECHNIQUE: Breast tomosynthesis in addition to standard 2D mammography was performed. Current study was also evaluated with a Computer Aided Detection (CAD) system. COMPARISON: Comparison is made to exams dated: 06/02/2016 mammogram, 05/31/2015 mammogram, 05/29/2014 ma mmogram, 05/26/2013 mammogram, 04/10/2010 mammogram, and 04/09/2009 mammogram - [facility]. BREAST COMPOSITION: There are scattered areas of fibroglandular density in both breasts. FINDINGS: No suspicious masses, calcifications, or areas of architectural distortion are noted in ei ther breast. There has been no significant interval change compared to prior exams. Bilateral benign vascular calcifications are again noted. IMPRESSION: ACR BI-RADS CATEGORY 2: BENIGN There is no mammographic evidence of malignancy. A 1 year screening mammogram is recommended. The pa tient will receive written notification of the results. Approximately 10% of breast cancers are not detected with mammography. A negative mammographic report should not delay biopsy if a clinically suggestive mass is present. Millicent Mcmullen M.D. ah/:06/03/2017 12:13:10 [employer]: Wilmer CUI(R)(M), [facility] letter sent: Normal 1/2 BI-RADS Code: ACR BI-RADS Category 2: Benign
== END | disposition home or self-care (01) ==
LOC: C.MAMM 10:22
PROVIDERS: ATTEND Internal Medicine
DX: Z12.31 Encounter for screening mammogram for malignant neoplasm of breast (principal)

== ENCOUNTER → 2017-07-28 | Outpatient (CLI) | payer BC ==
[2017-07-28 18:29] LABS: ALT/SGPT 30 U/L (12-78); AST/SGOT 25 U/L (15-37); BLOOD UREA NITROGEN 14 mg/dl (7-18); CARBON DIOXIDE 30 mmol/L (21-32); CREATININE 0.73 mg/dl (0.60-1.20); GLUCOSE 112 mg/dl (70-99); POTASSIUM 3.7 mmol/L (3.5-5.1); SODIUM 142 mmol/L (136-145)
[2017-07-28 18:31] LABS: ALKALINE PHOSPHATASE 60 U/L (45-117); TOTAL PROTEIN 7.2 gm/dl (6.4-8.2)
== END | disposition home or self-care (01) ==
LOC: C.LABBFT 14:42
PROVIDERS: ATTEND Nurse Practitioner
DX: M79.652 Pain in left thigh (principal); G95.11 Acute infarction of spinal cord (embolic) (nonembolic); Z79.899 Other long term (current) drug therapy

== ENCOUNTER → 2017-08-13 | Outpatient (CLI) | payer BC | END | disposition home or self-care (01) | LOC: C.LABBFT 14:06 | PROVIDERS: ATTEND Physician Assistant Medical | DX: E78.5 Hyperlipidemia, unspecified (principal); E03.9 Hypothyroidism, unspecified ==

== ENCOUNTER → 2017-11-13 | Outpatient (CLI) | payer BC ==
[2017-11-13 17:34] LABS: BASO % 0.2 %; BASO ABS # 0.01 K/uL (0-0.2); EOS ABS # 0.05 K/uL (0-0.5); HEMATOCRIT 41.1 % (37-47); HEMOGLOBIN 13.3 g/dL (12.0-16.0); LYMPH % 30.9 %; LYMPH ABS # 1.51 K/uL (1.2-3.4); MEAN CELL VOLUME 97.6 fL (80-100); MEAN CORPUSCULAR HEMOGLOBIN 31.6 pg (25-34); MEAN CORPUSCULAR HGB CONC 32.4 g/dl (32-36); MEAN PLATELET VOLUME 11.5 fL (7.4-10.4); MONO ABS # 0.44 K/uL (0.11-0.59); NEUT % 58.9 %; NEUT ABS # 2.87 K/uL (1.4-6.5); PLATELET COUNT 156 K/uL (130-400); RED CELL DISTRIBUTION WIDTH CV 13.5 % (11.5-14.5); RED CELL DISTRIBUTION WIDTH SD 48.1 fL (36.4-46.3); WHITE BLOOD COUNT 4.88 K/uL (4.8-10.8)
[2017-11-13 17:57] LABS: ALBUMIN 3.7 gm/dl (3.4-5.0); ALKALINE PHOSPHATASE 46 U/L (45-117); ALT/SGPT 29 U/L (12-78); AST/SGOT 25 U/L (15-37); BLOOD UREA NITROGEN 19 mg/dl (7-18); CALCIUM 9.3 mg/dl (8.5-10.1); CARBON DIOXIDE 29 mmol/L (21-32); CREATININE 0.56 mg/dl (0.60-1.20); GLUCOSE 73 mg/dl (70-99); POTASSIUM 4.1 mmol/L (3.5-5.1); SODIUM 142 mmol/L (136-145); TOTAL PROTEIN 6.8 gm/dl (6.4-8.2)
== END | disposition home or self-care (01) ==
LOC: C.LABBFT 11:23
PROVIDERS: ATTEND Internal Medicine
DX: R63.4 Abnormal weight loss (principal)

== ENCOUNTER 2025-03-16 19:57 | Inpatient (IN) ==
--- NOTE | 2025-03-16 20:14 | Emergency Department Note ---
Impression & Plan Acute hypoxic respiratory failure, Chest pain, Hypertensive urgency ED Provider Note NAME: CARON WELDON AGE: 84 SEX: F : 1940 ARRIVES VIA: Walk-In INFORMANT: Patient, ED PROVIDER(S): Jose Luis Jerome MD CHIEF COMPLAINT: Chest pain MEDICAL DECISION MAKING: Patient presents due to concern for chest pains and was noted to be significantly hypertensive. The patient did have IV established blood work was obtained along with an EKG chest x-ray the patient was ordered some medical nitro. Patient's EKG appears unchanged from prior. The patient did receive a nitro and did have improvement in her blood pressure which was subsequently from the 190s to 140s. She did have improvement in her chest pain currently 5 out of 10. Initial troponin negative. Given the patient's hypertensive emergency and chest pain to be the patient would benefit from blood pressure management as well as trending cardiac enzymes. I did speak the on-call hospitalist service and the patient was admitted by Dr. Castro. Family updated and in agreement with plan of care. Critical Care: I have personally spent 35 minutes of critical care time in direct management of this patient. This includes bedside care, interpretation of diagnostic studies, and testing, discussion with consultants, patient, and family members, and other require inpatient management activities. This 35 minutes is in excess of all separately billable procedures. Discussion w/ other healthcare providers: Dr. Castro inpatient medicine service Prior /Outside records reviewed: None Differential diagnosis: Cardiac ischemia, aortic dissection, pulmonary embolism, pneumothorax, pneumonia, pericarditis, myocarditis, GERD, cholecystitis, pancreatitis, musculoskeletal, as well as other pathologies were considered. Diagnostics, as interpreted by me: ECG: Normal sinus rhythm, rate of 62 normal intervals, normal axis T wave inversions in the lateral and high lateral leads. No significant change for comparison June 29, 2024. Cardiac monitoring: An order was placed for continuous cardiac monitoring. The monitor shows a rate of 65 with sinus rhythm. Patient was placed on pulse oximetry Medical decision rules: Heart score Imaging studies: I informally interpreted the patient's chest x-ray does not show evidence of obvious pneumonia with formal report to follow. HPI: Patient presents due to concern for chest pains. She developed this about 30 minutes prior to arrival. Family bedside also notes that she did have a similar episode towards [facility] and states that it was under similar circumstances with a lot of people at the house and a lot of grandchildren "running around." They were concerned about whether or not there may be an anxiety component. The patient does describe centralized chest pain as a heaviness nonradiating. No nausea vomiting or diaphoresis. No reported prior history of known CAD or CABG/stent per patient family at bedside. She has been compliant with her medications. No reported increase in salt or processed food in the diet. 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 She denies any cough or fever. Nursing reported the patient was in the high 80s and was placed on nasal cannula oxygen. Patient denies any respiratory symptoms cough or fever. PAST MEDICAL HISTORY: See Below PAST SURGICAL HISTORY: See Below SOCIAL HISTORY: See Below HOME MEDICATIONS: See Below ALLERGIES: See Below VITALS: See Below PHYSICAL EXAMINATION: GENERAL: NAD, non-toxic. EYE EXAM: Normal conjunctiva. PERRL, no anisocoria and EOM's grossly intact w/o pain. OROPHARYNX: Moist mucus membranes, grossly normal dentition. NECK: Trachea midline, no stridor. LUNGS: Clear to auscultation. Normal chest wall mechanics. HEART: NSR, no MRG. ABDOMEN: Abdomen soft, non-tender, no masses, no rebound or guarding. Wearing glasses. Hard of hearing. SKIN: No rashes and no bruising. UPPER EXTREMITIES: Upper extremities are grossly normal. LOWER EXTREMITIES: Grossly normal, slight left greater than right lower extremity swelling. NEURO EXAM: Awake and alert, follows commands, no obvious facial asymmetry, normal speech, moves all 4 extremities. Past Med/Surg History Problem List (Updated 03/17/25 @ 14:32 by Jose Luis Jerome MD) Chest pain (Acute) Acute hypoxic respiratory failure (Acute) Chest pain Hypertensive urgency (Acute) Cognitive impairment Right ankle instability Memory changes Fatigue Anxiety Tinea pedis, right Right second toe ulcer Dizziness (Acute) Visual disturbance Hip bursitis, left Headache Idiopathic polyneuropathy Acid reflux disease (Acute) Allergic rhinitis (Acute) Arthritis (Acute) Carpal tunnel syndrome (Acute) Degeneration of cervical intervertebral disc (Acute) Fibrocystic breast disease (Acute) Hyperlipidemia (Chronic) Hypertension (Chronic) Hypothyroidism (Chronic) Osteoporosis (Chronic) Paresthesias/numbness (Chronic) Ulnar nerve compression (Acute) Left hip pain Degenerative joint disease of left hip Lumbar spondylosis Depression Paresthesia Left foot pain Dysesthesia Medical History Right rotator cuff tear Carpal tunnel syndrome Avascular necrosis of bones of both hips Tinea corporis Pigmented skin lesion Numbness in left leg Menopause Lower extremity weakness Injury of hand, left History of fracture Diverticulitis of colon Constipation Cataract Anemia Abnormal transaminases Spinal 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 Norman History of hysterectomy with oophorectomy History of colonoscopy (~07/05/14) repeat in 10 years History of cataract surgery Family History Father Myocardial infarction Coronary heart disease Hypertension Sister Dementia Dyslipidemia Mother Alzheimer disease Dyslipidemia Hypertension Rheumatoid arthritis Grandfather (Paternal) Coronary heart disease Uncle Coronary heart disease Grandmother (Maternal) Rheumatoid arthritis Stroke Son Stroke Denies family history of Sudden SIDS (sudden infant syndrome) Ovarian cancer Prostate cancer Diabetes Deep vein thrombosis Osteoporosis Cerebral aneurysm Bipolar disorder Clotting disorder Crohn's disease Depression Heart disease Kidney disease Osteoarthritis Breast cancer Schizophrenia Congenital kidney disease Gestational diabetes Lung cancer COPD (chronic obstructive pulmonary disease) Colorectal cancer Pulmonary embolism Lung disease Ulcerative colitis Colonic polyp Asthma Cystic kidney disease Social History Smoking Status: Never smoker Second Hand Exposure: Yes; Do You Dip or Chew Tobacco: No; Hx Alcohol Use: No Hx Substance Use: No Preferred Language: Greek Communication Ability: Effective Visual Impairment: No Limitations Hearing Ability: Use of Hearing Aid Inside Sales Person Required: No Beliefs That Will Affect Care: None marital status: / Current Living Situation: Alone current occupational status: retired current occupation: used to work at [employer] Feels Safe at Home: Yes Childhood Exposure to Second-Hand Smoke: No Diet: regular caffeine: Yes during the past year weight has: remained stable Dental Care, Regularly: Yes Physical Activity Frequency: Daily Seatbelt Use: always Sunscreen Use: Yes Assistive Devices: Walker Allergies Allergies Allergy/AdvReac Type Severity Reaction Status Date / Time amoxicillin Allergy Mild unknown, Verified 03/09/25 08:[address] [facility]agran[facility]&p clavulanic acid Allergy Mild unknown, Verified 03/09/25 08:[address] villagran[facility] h&p clarithromycin Allergy Unknown Unknown Verified 03/09/25 08:28 pneumococcal vaccine Allergy Unknown Unknown Verified 03/09/25 08:28 Home Meds Home Medications Medication Instructions Recorded Confirmed aspirin 81 mg tablet,delayed 81 mg PO DAILY 07/05/18 03/09/25 release (Aspir-) calcium 600 mg (as 1 cap PO DAILY 07/05/18 03/09/25 carbonate)-vitamin D3 5 mcg (200 unit) capsule (Calcium 600 + D(3)) multivitamin (Multiple Vitamins 1 tab PO DAILY 07/05/18 03/09/25 tablet) acetaminophen 325 mg tablet 325 - 650 mg PO Q4H PRN pain 12/07/18 03/09/25 Previous Rx's Medication Instructions Recorded atorvastatin 20 mg tablet 20 mg PO DAILY #90 tabs 04/26/24 duloxetine 60 mg capsule,delayed 60 mg PO DAILY #30 caps 04/26/24 release gabapentin 100 mg capsule 200 mg (2 x 100 mg) PO BID 90 days 04/26/24 #360 caps lactobacillus combination no.4 15 15,000 mmu cells PO DAILY #30 caps 04/26/24 billion cell capsule (Senior Probiotic) levothyroxine 50 mcg tablet 50 mcg PO DAILY #90 tabs 05/17/24 cholecalciferol (vitamin D3) 1,250 50,000 unit PO .weekly #14 caps 10/11/24 mcg (50,000 unit) capsule memantine 10 mg tablet 10 mg PO BID #60 tabs 12/26/24 metoprolol tartrate 25 mg tablet 25 mg PO BID #180 tabs 01/09/25 alendronate 70 mg tablet 70 mg PO WK #12 tabs 03/09/25 baclofen 5 mg tablet 5 mg PO HS 90 days #90 tabs 03/09/25 citalopram 10 mg tablet 10 mg PO DAILY #30 tabs 03/10/25 Results & Data (ED) Vital Signs Vital Signs - 24 hr 03/16/25 20:00 03/16/25 20:10 03/16/25 20:12 Temperature 36.5 C Temperature Source Temporal Artery Scan Pulse Rate 62 62 Pulse Rate from SpO2 Sensor Respiratory Rate 20 Respiratory Effort / Characteristics Respiratory Depth Blood Pressure 205/108 H Blood Pressure Mean 140 Pulse Oximetry 98 86 L Oxygen Delivery Method Room Air Room Air Oxygen Flow Rate Sepsis Recent Fever Within 48 Hours No Sepsis New/Unexplained Change in Mental Status No Sepsis Action Taken by Nursing No Action Required Oxygen Flow Rate - Titration 2 Pulse Oximetry Post Tiitration 98 03/16/25 20:12 03/16/25 20:12 03/16/25 20:14 Temperature Temperature Source Pulse Rate 62 Pulse Rate from SpO2 Sensor 62 Respiratory Rate 18 Respiratory Effort / Characteristics Non-Labored Spontaneous Respiratory Depth Normal Blood Pressure 199/95 H Blood Pressure Mean 129 Pulse Oximetry 86 L 98 Oxygen Delivery Method Room Air Nasal Cannula Oxygen Flow Rate 2 Sepsis Recent Fever Within 48 Hours Sepsis New/Unexplained Change in Mental Status Sepsis Action Taken by Nursing Oxygen Flow Rate - Titration Pulse Oximetry Post Tiitration 03/16/25 20:30 03/16/25 20:45 03/16/25 21:06 Temperature Temperature Source Pulse Rate 55 L 55 L 55 L Pulse Rate from SpO2 Sensor 56 L 55 L 55 L Respiratory Rate 17 17 16 Respiratory Effort / Characteristics Respiratory Depth Blood Pressure 180/86 H 145/75 H 180/82 H Blood Pressure Mean 117 98 114 Pulse Oximetry 94 94 97 Oxygen Delivery Method Nasal Cannula Nasal Cannula Nasal Cannula Oxygen Flow Rate 2 2 2 Sepsis Recent Fever Within 48 Hours Sepsis New/Unexplained Change in Mental Status Sepsis Action Taken by Nursing Oxygen Flow Rate - Titration Pulse Oximetry Post Tiitration 03/16/25 21:30 Temperature Temperature Source Pulse Rate 51 L Pulse Rate from SpO2 Sensor 51 L Respiratory Rate 15 Respiratory Effort / Characteristics Respiratory Depth Blood Pressure 157/78 H Blood Pressure Mean 104 Pulse Oximetry 98 Oxygen Delivery Method Nasal Cannula Oxygen Flow Rate 2 Sepsis Recent Fever Within 48 Hours Sepsis New/Unexplained Change in Mental Status Sepsis Action Taken by Nursing Oxygen Flow Rate - Titration Pulse Oximetry Post Tiitration Home Medications Current Medication List: was personally reviewed by me Laboratory Data Attestation: I reviewed the patient's lab results. 03/17/25 05:55 03/17/25 05:55 Lab Results 03/16/25 Range/Units 20:22 WBC 5.65 (4.8-10.8) K/ul RBC 4.11 L (4.20-5.40) M/uL Hgb 13.2 (12.0-16.0) g/dL Hct 38.8 (37.0-47.0) % MCV 94.4 (80.0-100.0) fL MCH 32.1 (25.0-34.0) pg MCHC 34.0 (32.0-36.0) g/dL RDW Std Deviation 45.4 (36.4-46.3) fL RDW Coeff of Andrew 13.2 (11.5-14.5) % Plt Count 167 (130-400) K/uL MPV 9.9 (9.4-12.4) fL Immature Gran % (Auto) 0.4 % Neut % (Auto) 55.4 % Lymph % (Auto) 31.9 % [place] % (Auto) 9.9 % Eos % (Auto) 1.9 % Baso % (Auto) 0.5 % Neut # (Auto) 3.13 (1.40-6.50) K/uL Lymph # (Auto) 1.80 (1.20-3.40) K/uL [place] # (Auto) 0.56 (0.11-0.59) K/uL Eos # (Auto) 0.11 (0.00-0.50) K/uL Baso # (Auto) 0.03 (0.00-0.20) K/uL Immature Gran # (Auto) 0.02 (0.01-0.20) K/uL Sodium 139 (136-145) mmol/L Potassium 3.8 (3.5-5.1) mmol/L Chloride 101 (98-107) mmol/L Carbon Dioxide 31 (21-32) mmol/L Anion Gap 7 (3-11) BUN 20 (6-23) mg/dl Creatinine 0.74 (0.6-1.2) mg/dl Est Cr Clr Drug Dosing Not Reportable eGFR 79.24 BUN/Creatinine Ratio 27.0 H (10-20) Glucose 115 H (70-99(Fasting)) mg/dl Calcium 9.6 (8.6-10.3) mg/dl Magnesium 2.1 (1.7-2.4) mg/dl Total Bilirubin 0.4 (0.2-1.0) mg/dl AST 23 (13-39) U/L ALT 19 (7-52) U/L Alkaline Phosphatase 61 (34-104) U/L Troponin I High Sens 8.9 (0-14) pg/ml Total Protein 6.8 (6.0-8.3) gm/dl Albumin 4.1 (3.4-5.0) gm/dl Globulin 2.7 (2.5-4.0) gm/dl Albumin/Globulin Ratio 1.5 (0.9-2) Lipase 77 (11-82) U/L TSH 2.133 (0.300-4.500) uIu/ml Administered Medications Acetaminophen (Acetaminophen 325 Mg Tab) 650 mg PO Q4H PRN PRN Reason: Pain or Fever Stop: 04/15/25 23:58 Last Admin: 03/17/25 13:16 Dose: 650 mg Documented By: ANDI Amlodipine Besylate (Amlodipine Besylate 5 Mg Tab) 5 mg PO QAM [facility] Stop: 04/16/25 08:59 Last Admin: 03/17/25 09:21 Dose: 5 mg Documented By: ANGIE Aspirin (Aspirin 81 Mg Ectab) 81 mg PO DAILY [facility] Stop: 04/16/25 08:59 Last Admin: 03/17/25 09:21 Dose: 81 mg Documented By: ANGIE Atorvastatin Calcium (Atorvastatin 20 Mg Tab) 20 mg PO DAILY [facility] Stop: 04/16/25 08:59 Last Admin: 03/17/25 09:21 Dose: 20 mg Documented By: ANGIE Citalopram Hydrobromide (Citalopram 20 Mg Tab) 10 mg PO DAILY [facility] Stop: 04/16/25 08:59 Last Admin: 03/17/25 09:21 Dose: 10 mg Documented By: ANGIE Duloxetine HCl (Duloxetine Hcl 60 Mg Cap) 60 mg PO DAILY [facility] Stop: 04/16/25 08:59 Last Admin: 03/17/25 09:22 Dose: 60 mg Documented By: ANGIE Gabapentin (Gabapentin 100 Mg Cap) 200 mg PO BID [facility] Stop: 04/15/25 23:58 Last Admin: 03/17/25 09:22 Dose: 200 mg Documented By: Admin: 03/17/25 00:20 Dose: 200 mg Documented By: NAVDEEP Levothyroxine Sodium (Levothyroxine Sodium 50 Mcg Tablet) 50 mcg PO DAILYBB [facility] Stop: 04/16/25 06:29 Last Admin: 03/17/25 06:06 Dose: 50 mcg Documented By: NAVDEEP Memantine (Memantine Hcl 10 Mg Tab) 10 mg PO BID [facility] Stop: 04/15/25 23:58 Last Admin: 03/17/25 09:22 Dose: 10 mg Documented By: Admin: 03/17/25 00:20 Dose: 10 mg Documented By: NAVDEEP Metoprolol Tartrate (Metoprolol Tartrate 25 Mg Tab) 25 mg PO BID [facility] Stop: 04/15/25 23:58 Last Admin: 03/17/25 09:23 Dose: 25 mg Documented By: Admin: 03/17/25 00:10 Dose: Not Given Documented By: NAVDEEP Discontinued Medications Acetaminophen (Acetaminophen 500 Mg Tab) 1,000 mg PO NOW STA Stop: 03/16/25 20:52 Last Admin: 03/16/25 22:08 Dose: 1,000 mg Documented By: ARIK Hydralazine HCl (Hydralazine Hcl 20 Mg/Ml Vial) 10 mg IV NOW STA Stop: 03/17/25 07:32 Last Admin: 03/17/25 07:35 Dose: 10 mg Documented By: ANGIE Nitroglycerin (Nitroglycerin Sl 0.4 Mg/Tab Tab) 0.4 mg SL NOW STA Stop: 03/16/25 20:17 Last Admin: 03/16/25 20:31 Dose: 0.4 mg Documented By: ARIK Potassium Chloride (Potassium Chloride Crtab 20 Meq Tabcr) 20 meq PO NOW STA Stop: 03/16/25 21:55 Last Admin: 03/16/25 22:09 Dose: 20 meq Documented By: ARIK Discharge Plan Visit Data Chief Complaint: Chest Pain Stated Complaint: FEELING FAINT, CHEST PRESSURE, SOB ED Provider: Jose Luis Jerome Discharge Problem: Acute hypoxic respiratory failure, Chest pain, Hypertensive urgency Patient Disposition: Admitted As Inpatient Condition: Good Discharge Instructions Interventions: ED Discharge Assessment Last Done: 03/16/25 23:17 Discharge Problem: Chest pain Qualifiers: Chest pain type: unspecified Qualified Code(s): R07.9 - Chest pain, unspecified
[2025-03-16] MEDS: NITROGLYCERIN SL 0.4 MG/TAB TAB SL STA (20:31)
[2025-03-16 20:38] LABS: Hematocrit (blood only) 38.8 % (37.0-47.0); Hemoglobin 13.2 g/dL (12.0-16.0); Immature Granulocytes # (auto) 0.02 K/uL (0.01-0.20); Immature Granulocytes % (auto) 0.4 %; Mean Corpuscular Hemoglobin 32.1 pg (25.0-34.0); Mean Corpuscular Volume 94.4 fL (80.0-100.0); Platelet Count 167 K/uL (130-400); RDW Standard Deviation 45.4 fL (36.4-46.3); Red Blood Count 4.11 M/uL (4.20-5.40); White Blood Count 5.65 K/ul (4.8-10.8)
[2025-03-16 20:56] LABS: Alanine Aminotransferase 19 U/L (7-52); Albumin Globulin Ratio 1.5 (0.9-2); Albumin Level 4.1 gm/dl (3.4-5.0); Alkaline Phosphatase 61 U/L (34-104); Anion Gap 7 (3-11); Bilirubin,Total 0.4 mg/dl (0.2-1.0); Blood Urea Nitrogen 20 mg/dl (6-23); Calcium 9.6 mg/dl (8.6-10.3); Carbon Dioxide 31 mmol/L (21-32); Chloride 101 mmol/L (98-107); Globulin 2.7 gm/dl (2.5-4.0); Glucose 115 mg/dl (70-99(Fasting)); Lipase 77 U/L (11-82); Potassium 3.8 mmol/L (3.5-5.1); Sodium 139 mmol/L (136-145); Total Protein 6.8 gm/dl (6.0-8.3)
[2025-03-16 21:44] LABS: Magnesium 2.1 mg/dl (1.7-2.4)
--- NOTE | 2025-03-16 21:44 | History & Physical Report ---
Date of Service March 16, 2025 Assessment & Plan (1) Hypertensive urgency: (2) Chest pain: (3) Acute hypoxic respiratory failure: Plan Patient is an 84-year-old female with past medical history of HTN, HLD, spinal cord stroke in 2017. Patient presented to the ED with her family due to midsternal chest heaviness and dyspnea found to have a blood pressure of 205/108. Chest pain and hypertension improved with sublingual nitroglycerin in the ED. Patient is being admitted for hypertensive urgency and further cardiac workup. #HTN urgency/chest painEKG with T wave inversions in aVL, V4 through V6 however similar to previous; no acute ischemic changes. Troponin 8.9, K+ 3.8, Mg 2.1, renal function stable. BP and CP improved with SL nitro x 1 and Tylenol p.o. UA and TSH ordered - 20 meQ PO KCl ordered Continue home metoprolol tartrate 25 mg p.o. twice daily; due for evening dose at time of admission Defer changing home medications as episodes appear to be stress-induced SL nitro as needed for chest pain EKG as needed for chest pain Echocardiogram ordered Continue home baby aspirin - troponin q6h Repeat BMP, mag with a.m. labs Monitor on telemetry #acute hypoxic respiratory [id number] on room air, currently on 2L NC at time of admission. CXR without acute changes. Likely 2/2 event above - covid/flu/rsv swab ordered Wean oxygen as tolerated, goal > 92% Incentive spirometry - Note the patient has been following with PCP who recommended sleep study for possible sleep apnea however patient denied #HLDcontinue baby aspirin and atorvastatin #Mental health/cognitive impairmentcontinue citalopram, duloxetine, memantine #Hypothyroidismcontinue levothyroxine VTE ppx: SCDs, low risk Dispo: PCU Admission and Anticipated Discharge Date Admission Date: 03/16/25 History of Present Illness Chief Complaint: chest pain Primary Care Provider: Loco Harrison DO Patient is an 84-year-old female with past medical history of HTN, HLD, spinal cord stroke in 2017. Patient presented to the ED with her family due to m idsternal chest heaviness and dyspnea found to have a blood pressure of 205/108. Chest pain and hypertension improved with sublingual nitroglycerin in the ED. Patient is being admitted for hypertensive urgency and further cardiac workup. Patient seen at bedside with her 3 children present. She stated she was at [employer]esh dinner at her granddaughter's house when she got up to use the restroom and had some weakness, lethargy, and lost her balance in which her son had to help her to the restroom. She typically uses a walker at baseline however denies any ambulatory dysfunction or need for assistance. She then returned to her chair where the son stated that she appeared wobbly when she sat down. She denies any dizziness, lightheadedness, chest pain, or shortness of breath at this time. After resting in the chair and watching her grandchildren open gifts, she then developed significant dyspnea and midsternal chest heaviness which was not relieved until she had nitroglycerin in the ED. She denies any diaphoresis, dizziness, lightheadedness, headaches, nausea, vomiting, cough, rhinorrhea, sore throat associated with the episode. Chest pain was 10/10 at its worst, currently 7/10 at bedside however patient appears stable. She was noted to be 86% on room air and placed on 2L NC. Patient's son stated that she has had this happen twice before, most recently in January at a family member's birthday. All of the events have occurred at the end of the event whenever her family was about to leave. They think it may be stress related. Patient denies any nicotine or alcohol use. She denies past history of MT. She did take all of her morning medications which includes metoprolol tartrate 25 mg p.o. She does take this in the evening with dinner around 5 to 7 PM which she would be due for. She wishes to be full code. Discussed with family members at bedside as they stated she was previously DNR/DNI however she now wishes to change her CODE STATUS to full code as she has great grandchildren that she wants to see. patient stated she does not check her blood pressure at home however it has not been as high with PCP visits. patient recently saw PCP who decreased her home baclofen from twice daily to at bedtime. Allergies Allergy/AdvReac Type Severity Reaction Status Date / Time amoxicillin Allergy Mild unknown, Verified 03/09/25 08:[address] [facility] clavulanic acid Allergy Mild unknown, Verified 03/09/25 08:[address] [facility] clarithromycin Allergy Unknown Unknown Verified 03/09/25 08:28 pneumococcal vaccine Allergy Unknown Unknown Verified 03/09/25 08:28 Home Medications Medication Instructions Recorded Confirmed Type aspirin 81 mg tablet,delayed 81 mg PO DAILY 07/05/18 03/09/25 History release (Aspir-) calcium 600 mg (as 1 cap PO DAILY 07/05/18 03/09/25 History carbonate)-vitamin D3 5 mcg (200 unit) capsule (Calcium 600 + D(3)) multivitamin (Multiple Vitamins 1 tab PO DAILY 07/05/18 03/09/25 History tablet) acetaminophen 325 mg tablet 325 - 650 mg PO Q4H PRN pain 12/07/18 03/09/25 History atorvastatin 20 mg tablet 20 mg PO DAILY #90 tabs 04/26/24 03/09/25 Rx duloxetine 60 mg capsule,delayed 60 mg PO DAILY #30 caps 04/26/24 03/09/25 Rx release gabapentin 100 mg capsule 200 mg (2 x 100 mg) PO BID 90 days 04/26/24 03/09/25 Rx #360 caps lactobacillus combination no.4 15 15,000 mmu cells PO DAILY #30 caps 04/26/24 03/09/25 Rx billion cell capsule (Senior Probiotic) levothyroxine 50 mcg tablet 50 mcg PO DAILY #90 tabs 05/17/24 03/09/25 Rx cholecalciferol (vitamin D3) 1,250 50,000 unit PO .weekly #14 caps 10/11/24 03/09/25 Rx mcg (50,000 unit) capsule memantine 10 mg tablet 10 mg PO BID #60 tabs 12/26/24 03/09/25 Rx metoprolol tartrate 25 mg tablet 25 mg PO BID #180 tabs 01/09/25 03/09/25 Rx alendronate 70 mg tablet 70 mg PO WK #12 tabs 03/09/25 03/09/25 Rx baclofen 5 mg tablet 5 mg PO HS 90 days #90 tabs 03/09/25 03/09/25 Rx citalopram 10 mg tablet 10 mg PO DAILY #30 tabs 03/10/25 Rx Past Med/Surg History Problem List Acute hypoxic respiratory failure Chest pain Hypertensive urgency Cognitive impairment Right ankle instability Memory changes Fatigue Anxiety Tinea pedis, right Right second toe ulcer Dizziness (Acute) Visual disturbance Hip bursitis, left Headache Idiopathic polyneuropathy Acid reflux disease (Acute) Allergic rhinitis (Acute) Arthritis (Acute) Carpal tunnel syndrome (Acute) Degeneration of cervical intervertebral disc (Acute) Fibrocystic breast disease (Acute) Hyperlipidemia (Chronic) Hypertension (Chronic) Hypothyroidism (Chronic) Osteoporosis (Chronic) Paresthesias/numbness (Chronic) Ulnar nerve compression (Acute) Left hip pain Degenerative joint disease of left hip Lumbar spondylosis Depression Paresthesia Left foot pain Dysesthesia Medical History Right rotator cuff tear Carpal tunnel syndrome Avascular necrosis of bones of both hips Tinea corporis Pigmented skin lesion Numbness in left leg Menopause Lower extremity weakness Injury of hand, left History of fracture Diverticulitis of colon Constipation Cataract Anemia Abnormal transaminases Spinal 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 Norman History of hysterectomy with oophorectomy History of colonoscopy (~07/05/14) repeat in 10 years History of cataract surgery Family History Father Myocardial infarction Coronary heart disease Hypertension Sister Dementia Dyslipidemia Mother Alzheimer disease Dyslipidemia Hypertension Rheumatoid arthritis Grandfather (Paternal) Coronary heart disease Uncle Coronary heart disease Grandmother (Maternal) Rheumatoid arthritis Stroke Son Stroke Denies family history of Sudden SIDS (sudden infant syndrome) Ovarian cancer Prostate cancer Diabetes Deep vein thrombosis Osteoporosis Cerebral aneurysm Bipolar disorder Clotting disorder Crohn's disease Depression Heart disease Kidney disease Osteoarthritis Breast cancer Schizophrenia Congenital kidney disease Gestational diabetes Lung cancer COPD (chronic obstructive pulmonary disease) Colorectal cancer Pulmonary embolism Lung disease Ulcerative colitis Colonic polyp Asthma Cystic kidney disease Social History Smoking Status: Never smoker Second Hand Exposure: Yes; Do You Dip or Chew Tobacco: No; Hx Alcohol Use: No Hx Substance Use: No Preferred Language: Irish Communication Ability: Effective Visual Impairment: No Limitations Hearing Ability: Use of Hearing Aid Counselor Education Professor Required: No Beliefs That Will Affect Care: None marital status: / Current Living Situation: Alone current occupational status: retired current occupation: used to work at [employer] Feels Safe at Home: Yes Childhood Exposure to Second-Hand Smoke: No Diet: regular caffeine: Yes during the past year weight has: remained stable Dental Care, Regularly: Yes Physical Activity Frequency: Daily Seatbelt Use: always Sunscreen Use: Yes Assistive Devices: Cane, Denture - Upper, Denture - Lower, Glasses, Hearing Aid - Bilateral and Walker Review of Systems Review of Systems: see HPI Physical Exam Physical Exam: The patient is awake, alert and oriented 3, well developed and well nourished, normocephalic and atraumatic, in no acute distress. Non-toxic appearing. HEENT- EOMI, mucous membranes moist. Hearing grossly intact. Heart-normal S1 and S2. No murmurs, rubs or gallops. Lungs-clear bilaterally, no respiratory distress, no accessory muscle use. On 2L NC. Abdomen-normal bowel sounds and soft. No ascites noted. Non-tender. Extremities- no clubbing, cyanosis, or edema. Rheumatologic-normal range of motion. Psychiatric-normal affect. Results & Data Results & Data Vital Signs (Past 12 Hours) Vital Signs Temp Pulse Resp BP Pulse Ox O2 Del Method O2 Flow Rate 03/16/25 20:45 55 L 17 145/75 H 94 Nasal Cannula 2 03/16/25 20:30 55 L 17 180/86 H 94 Nasal Cannula 2 03/16/25 20:14 98 Nasal Cannula 2 03/16/25 20:12 62 18 199/95 H 86 L Room Air 03/16/25 20:12 86 L Room Air 03/16/25 20:10 62 03/16/25 20:00 36.5 C 62 20 205/108 H 98 Room Air Laboratory Results Reviewed CBC, CMP, troponin Ordered magnesium, UA, TSH Diagnostic Findings reviewed CXR Medications Administered EDTylenol 1G p.o., sublingual nitroglycerin x 1 Code Status & VTE Plan Code Status full code VTE Prophylaxis Plan VTE Prophylaxis will be ordered: Yes Supervising Physician Co-Signing Physician Notes Patient seen and examined, chart reviewed, case discussed with RADHA Grissom and I agree with the assessment and plan as above. In brief, patient is an 84yo female with history of HTN and HLP presenting with substernal chest heaviness and dyspnea. Marked hypertension on arrival with BP of 205/108. Symptoms improved with Nitroglycerine. Patient still with hypertension. No further chest heaviness. On exam patient is resting comfortably, NAD +S1/S2, regular, bradycardic, no m/r/g Lungs CTA Abd soft, NT/ND Ex warm, well perfused Labs and images reviewed EKG with LVH, no acute ischemic changes Assessment/Plan - hypertensive urgency, chest pain associated with markedly elevated blood pressure. No ischemia on EKG. Troponin x 1 unremarkable BP improved after Nitro -Continue home medications -Trend troponin -Check 2D echo Hypoxia - possibly secondary to elevated blood pressure, edema? CXR is unremarkable. No home O2 use -Continue to monitor -BP control as above PG Care Time/CCT Total # of Minutes Spent Total Time Spent with Patient: Total time spent is greater than 50% in coordination of care (as documented) at patient's floor/unit and/or counseling patient: Coding Level of Care Code 94495 INT INP/OBS CARE 3/75MIN Diagnoses Hypertensive urgency I16.0 Chest pain R07.9 Acute hypoxic respiratory failure J96.01
[2025-03-16 22:01] LABS: Thyroid Stimulating Hormone 2.133 uIu/ml (0.300-4.500)
[2025-03-16] MEDS: ACETAMINOPHEN 500 MG TAB PO STA (22:08)
[2025-03-16] MEDS: POTASSIUM CHLORIDE CRTAB 20 MEQ TABCR PO STA (22:09)
[2025-03-16 22:58] LABS: Influenza A virus by PCR Negative (Neg); Influenza B virus by PCR Negative (Neg); SARS CoV2 RNA(COVID-19) Ceph NEGATIVE (Negative)
--- NOTE | 2025-03-16 23:41 | XRay Report ---
Exam(s): XR CXR 1 VIEW EXAM: XR Chest, 1 View CLINICAL HISTORY: Reason for exam: Chest pain, nonspecific. TECHNIQUE: Frontal view of the chest. COMPARISON: No relevant prior studies available. FINDINGS: Lungs: No consolidation. Pleural space: No significant pleural effusion. No pneumothorax. Heart: No cardiomegaly or pulmonary vascular congestion. Bones/joints: No acute fracture. No dislocation. IMPRESSION: No evidence of acute cardiopulmonary disease. Electronically signed by: Annalee Mireles M.D. 03/16/25 23:41 PM
[2025-03-16] MEDS ORDERED: NITROGLYCERIN SL 0.4 MG/TAB TAB SL PRN (23:59)
[2025-03-16] MEDS ORDERED: POLYETHYLENE (MIRALAX) 17 GM PACK PO PRN (23:59)
[2025-03-16] MEDS ORDERED: ONDANSETRON INJ 2 MG/ML 2 ML VIAL IV PRN (23:59)
[2025-03-16] MEDS ORDERED: DOCUSATE SODIUM 100 MG CAP PO PRN (23:59)
[2025-03-16] MEDS ORDERED: MELATONIN 3 MG TAB PO PRN (23:59)
[2025-03-17] MEDS: METOPROLOL TARTRATE 25 MG TAB PO SCH (00:10)
[2025-03-17] MEDS: GABAPENTIN 100 MG CAP PO SCH (00:20)
[2025-03-17] MEDS: MEMANTINE HCL 10 MG TAB PO SCH (00:20)
[2025-03-17] MEDS: LEVOTHYROXINE SODIUM 50 MCG TABLET PO SCH (06:06)
[2025-03-17 06:23] LABS: Hematocrit (blood only) 35.1 % (37.0-47.0); Hemoglobin 12.0 g/dL (12.0-16.0); Mean Corpuscular Hemoglobin 31.9 pg (25.0-34.0); Mean Corpuscular Volume 93.4 fL (80.0-100.0); Platelet Count 151 K/uL (130-400); RDW Standard Deviation 44.9 fL (36.4-46.3); Red Blood Count 3.76 M/uL (4.20-5.40); White Blood Count 4.92 K/ul (4.8-10.8)
[2025-03-17 06:43] LABS: Anion Gap 6.0 (3-11); Blood Urea Nitrogen 19.0 mg/dl (6-23); Calcium 8.6 mg/dl (8.6-10.3); Carbon Dioxide 30.0 mmol/L (21-32); Chloride 105.0 mmol/L (98-107); Creatinine Clr Calc Pharmacy 54.1 ml/min; Glucose 102.0 mg/dl (70-99(Fasting)); Magnesium 2.1 mg/dl (1.7-2.4); Potassium 3.9 mmol/L (3.5-5.1); Sodium 141.0 mmol/L (136-145)
[2025-03-17] MEDS: ATORVASTATIN 20 MG TAB PO SCH (09:21)
[2025-03-17] MEDS: CITALOPRAM 20 MG TAB PO SCH (09:21)
[2025-03-17] MEDS: ASPIRIN 81 MG ECTAB PO SCH (09:21)
--- NOTE | 2025-03-17 11:32 | Hospitalist Progress Note ---
Date of Service March 17, 2025 Assessment & Plan (1) Hypertensive urgency: Plan: Present on admission. Now resolved. Amlodipine has been started and is new for her. (2) Chest pain: Plan: No evidence of acute coronary syndrome. EKG #2 is similar to EKG #1. Her chest discomfort appears to be noncardiac and atypical. Troponin levels are not trending. I think the cardiac echo will reveal a degree of LVH causing the EKG changes. (3) Acute hypoxic respiratory failure: Plan: Now resolved. Probably from narcotics administered in the ED for pain control. Admission chest x-ray is clear Plan Hopeful discharge back to previous living arrangements within the next day or 2 Admission and Anticipated Discharge Date Admission Date: March 16, 2025 Subjective Alert and oriented. Amlodipine has been added to her drug regimen for blood pressure control. Blood pressure is improved. Troponin is minimally elevated and EKG #2 is similar to EKG #1. It appears she has a degree of left ventricular hypertrophy with repolarization changes. Cardiac echo report is pending. OT and PT assessments have been requested. Hopefully she can go home in the next day or 2 Review of Systems 2 Review of Systems: Constitutionalno fever or chills ENTno blurred vision, no double vision, no epistaxis, no sore throat Respiratoryno cough, no wheezing, no shortness of breath Cardiacno palpitations, no syncope. Nonpalpable atypical substernal chest discomfort Yahaira nausea, vomiting, diarrhea, melena, hematochezia GUno urinary retention, no urinary incontinence, no dysuria, no hematuria Musculoskeletalno joint pain, no muscle tenderness Skinno bruising, no rashes, no pruritus Neurono isolated weakness, no paresthesia, no weakness Psychno depression, no anxiety Physical Exam 2 Physical Exam: General-alert and oriented x3, no fever, no chills HEENT-head atraumatic and normocephalic, pupils equal and reactive to light, extraocular muscles intact Neck-no lymphadenopathy or thyromegaly, trachea midline Chest-clear to auscultation. No rales, wheezing or rhonchi Cardiac-regular rate and rhythm, normal S1 and S2 Abdomen-normal bowel sounds, no hepatosplenomegaly Extremities-no cyanosis, clubbing, or edema Neuro-cranial nerves II through XII intact, motor and sensory function within normal limits, strength symmetrical, no focal deficits Psych-normal affect, normal mood Results & Data Results & Data Vital Signs (Past 12 Hours) Vital Signs Temp Pulse Pulse Resp BP Pulse Ox O2 Del Method 03/17/25 08:07 68 150/74 H 03/17/25 07:27 206/80 H 03/17/25 07:19 36.6 C 53 L 16 205/85 H 98 Room Air 03/17/25 05:32 53 L 03/17/25 04:05 36.5 C 53 L 14 128/66 97 Room Air 03/17/25 00:24 Nasal Cannula 03/17/25 00:24 36.2 C L 52 L 20 179/91 H 95 Nasal Cannula 03/17/25 00:07 36.2 C L 49 L 20 179/91 H 95 Nasal Cannula 03/17/25 00:06 50 L O2 Flow Rate 03/17/25 08:07 03/17/25 07:27 03/17/25 07:19 03/17/25 05:32 03/17/25 04:05 03/17/25 00:24 2 03/17/25 00:24 2 03/17/25 00:07 2 03/17/25 00:06 Laboratory Results 03/17/25 05:55 03/17/25 05:55 PG Care Time/CCT Total # of Minutes Spent Total Time Spent with Patient: Total time spent is greater than 50% in coordination of care (as documented) at patient's floor/unit and/or counseling patient: Coding Level of Care Code 58807 SUB INP/OBS CARE 3/50MIN Diagnoses Hypertensive urgency I16.0 Chest pain R07.9 Acute hypoxic respiratory failure J96.01
--- NOTE | 2025-03-17 12:19 | XCELERA ---
[id number] [id number]
[2025-03-17] MEDS: ACETAMINOPHEN 325 MG TAB PO PRN (13:16)
--- NOTE | 2025-03-17 13:42 | Electrocardiogram Report ---
Test Reason : Blood Pressure : */* mmHG Vent. Rate : 62 BPM Atrial Rate : 62 BPM P-R Int : 114 ms QRS Dur : 102 ms QT Int : 448 ms P-R-T Axes : 43 12 141 degrees QTcB Int : 454 ms Normal sinus rhythm Left ventricular hypertrophy with repolarization abnormality Abnormal ECG When compared with ECG of 29-Jun-2024 18:30, No significant change was found Confirmed by Abdulaziz Fontanez ([id number]) on 03/17/2025 1:42:43 PM Referred By: REFERRED SELF Confirmed By: Abdulaziz Fontanez
[2025-03-17 13:46] LABS: Appearance Urine Cloudy (Clear); Bacteria Urine Automated 4+ (None Seen); Cast Urine Automated 0-2 /lpf (0-2); Glucose Urine UA Negative (Negative); RBC Urine Automated >20 /hpf (0-2); WBC Urine Automated >50 /hpf (0-5)
--- NOTE | 2025-03-17 13:50 | Electrocardiogram Report ---
Test Reason : Blood Pressure : */* mmHG Vent. Rate : 65 BPM Atrial Rate : 65 BPM P-R Int : 138 ms QRS Dur : 100 ms QT Int : 448 ms P-R-T Axes : 45 4 136 degrees QTcB Int : 465 ms Normal sinus rhythm Abnormal ECG When compared with ECG of 16-Mar-2025 20:12, (unconfirmed) T wave inversion less evident in Lateral leads Confirmed by Abdulaziz Fontanez ([id number]) on 03/17/2025 1:50:11 PM Referred By: REFERRED SELF Confirmed By: Abdulaziz Fontanez
[2025-03-17] MEDS: BACLOFEN 10 MG TAB PO SCH (20:29)
[2025-03-18 06:20] LABS: Hematocrit (blood only) 34.9 % (37.0-47.0); Hemoglobin 12.0 g/dL (12.0-16.0); Immature Granulocytes # (auto) 0.02 K/uL (0.01-0.20); Immature Granulocytes % (auto) 0.3 %; Mean Corpuscular Hemoglobin 32.5 pg (25.0-34.0); Mean Corpuscular Volume 94.6 fL (80.0-100.0); Platelet Count 159 K/uL (130-400); RDW Standard Deviation 45.4 fL (36.4-46.3); Red Blood Count 3.69 M/uL (4.20-5.40); White Blood Count 5.85 K/ul (4.8-10.8)
[2025-03-18 06:45] LABS: Anion Gap 5.0 (3-11); Blood Urea Nitrogen 17.0 mg/dl (6-23); Calcium 8.6 mg/dl (8.6-10.3); Carbon Dioxide 30.0 mmol/L (21-32); Chloride 102.0 mmol/L (98-107); Creatinine Clr Calc Pharmacy 43.5 ml/min; Glucose 90.0 mg/dl (70-99(Fasting)); Potassium 3.9 mmol/L (3.5-5.1); Sodium 137.0 mmol/L (136-145)
[2025-03-18 10:29] VITALS: BP 99/58; PULSE 62; RESP 18; TEMP 98.1; O2SAT 94
--- NOTE | 2025-03-18 10:37 | Discharge Summary ---
Discharge Summary Date of Service March 18, 2025 Principal Dx & Hospital Course #1 = Principal Diagnosis (1) Hypertensive urgency: Present on admission. Now resolved. Amlodipine has been started and is new for her. (2) Chest pain: No evidence of acute coronary syndrome. EKG #2 is similar to EKG #1. Her chest discomfort appears to be noncardiac and atypical. Troponin levels are not trending. Cardiac echo reveals evidence of moderate left ventricular hypertrophy with normal ejection fraction and no regional wall motion abnormalities. This accounts for the abnormal EKG appearance. (3) Acute hypoxic respiratory failure: Now resolved. Probably from narcotics administered in the ED for pain control. Admission chest x-ray is clear Plan Home today, March 18. Amlodipine has been added to her medication regimen. Home health services have been requested. Admission HPI Per Admitting Provider Patient is an 84-year-old female with past medical history of HTN, HLD, spinal cord stroke in 2017. Patient presented to the ED with her family due to midsternal chest heaviness and dyspnea found to have a blood pressure of 205/108. Chest pain and hypertension improved with sublingual nitroglycerin in the ED. Patient is being admitted for hypertensive urgency and further cardiac workup. Patient seen at bedside with her 3 children present. She stated she was at [employer] dinner at her granddaughter's house when she got up to use the restroom and had some weakness, lethargy, and lost her balance in which her son had to help her to the restroom. She typically uses a walker at baseline however denies any ambulatory dysfunction or need for assistance. She then returned to her chair where the son stated that she appeared wobbly when she sat down. She denies any dizziness, lightheadedness, chest pain, or shortness of breath at this time. After resting in the chair and watching her grandchildren open gifts, she then developed significant dyspnea and midsternal chest heaviness which was not relieved until she had nitroglycerin in the ED. She denies any diaphoresis, dizziness, lightheadedness, headaches, nausea, vomiting, cough, rhinorrhea, sore throat associated with the episode. Chest pain was 10/10 at its worst, currently 7/10 at bedside however patient appears stable. She was noted to be 86% on room air and placed on 2L NC. Patient's son stated that she has had this happen twice before, most recently in January at a family member's birthday. All of the events have occurred at the end of the event whenever her family was about to leave. They think it may be stress related. Patient denies any nicotine or alcohol use. She denies past history of ME. She did take all of her morning medications which includes metoprolol tartrate 25 mg p.o. She does take this in the evening with dinner around 5 to 7 PM which she would be due for. She wishes to be full code. Discussed with family members at bedside as they stated she was previously DNR/DNI however she now wishes to change her CODE STATUS to full code as she has great grandchildren that she wants to see. patient stated she does not check her blood pressure at home however it has not been as high with PCP visits. patient recently saw PCP who decreased her home baclofen from twice daily to at bedtime. Discharge Exam General-alert and oriented x3, no fever, no chills HEENT-head atraumatic and normocephalic, pupils equal and reactive to light, extraocular muscles intact Neck-no lymphadenopathy or thyromegaly, trachea midline Chest-clear to auscultation. No rales, wheezing or rhonchi Cardiac-regular rate and rhythm, normal S1 and S2 Abdomen-normal bowel sounds, no hepatosplenomegaly Extremities-no cyanosis, clubbing, or edema Neuro-cranial nerves II through XII intact, motor and sensory function within normal limits, strength symmetrical, no focal deficits Psych-normal affect, normal mood Discharge Plan Discharge Items Patient Disposition: Home - Home Health Services Reason For Visit: HTN URGENCY, CHEST PAIN Discharge Diagnosis: Hypertensive urgency, chest pain without acute coronary syndrome Condition on Discharge: Good Activity: Resume your previous activity Non-emergency contact: Primary Care Provider Call non-emergency contact if: you have any medication questions and your symptoms worsen Follow-up/Referrals: Loco Harrison, [Primary Care Provider] - Diet: Regular and Heart Healthy Addtl Attending Provider Instructions: Amlodipine 5 mg once daily is new for blood pressure control. A prescription has been sent to your pharmacy. All other medications remain the same. Home health services have been requested Pending Studies at Discharge: No Stand-Alone Forms: My [employer]), Smoking Cessation Medications and DC Order Prescriptions: New amlodipine 5 mg Tablet 5 mg PO QAM Qty: 30 0RF Continued atorvastatin 20 mg tablet 20 mg PO DAILY Qty: 90 3RF levothyroxine 50 mcg tablet 50 mcg PO DAILY Qty: 90 3RF cholecalciferol (vitamin D3) 1,250 mcg (50,000 unit) capsule 50,000 unit PO .weekly Qty: 14 2RF metoprolol tartrate 25 mg tablet 25 mg PO BID Qty: 180 3RF citalopram 10 mg tablet 10 mg PO DAILY Qty: 30 2RF acetaminophen 325 mg tablet 325 - 650 mg PO Q4H PRN (Reason: pain) gabapentin 100 mg capsule 200 mg PO BID 90 Days Qty: 360 3RF duloxetine 60 mg capsule,delayed release(DR/EC) 60 mg PO DAILY Qty: 30 7RF Senior Probiotic 15 billion cell capsule 15,000 mmu cells PO DAILY Qty: 30 0RF Rx Instructions: administer with a meal memantine 10 mg tablet 10 mg PO BID Qty: 60 6RF baclofen 5 mg tablet 5 mg PO HS 90 Days Qty: 90 2RF alendronate 70 mg tablet 70 mg PO WK Qty: 12 3RF aspirin [Aspir-81] 81 mg Tablet,Delayed Release (Dr/Ec) 81 mg PO DAILY Calcium 600 + D(3) 600 mg calcium- 200 unit Capsule 1 cap PO DAILY multivitamin [Multiple Vitamins] Tablet 1 tab PO DAILY Discharge Orders: Discharge Order (Routine); Ordered 03/18/25 Ordered By: Parag Kirk Admission Data Admit Date/Time: 03/16/25 21:55 Attending Provider: Parag Kirk Admit Provider: Parag Kirk Primary Care Provider: Loco Harrison Other Providers: Jami Castro Hospital Stay Data Consultations 03/16/25 21:14 ED Decision to Admit Stat Pending Results Patient Have Any Pending Studies at Discharge: No Discharge Instructions Given to Patient (Per Discharging Provider) Amlodipine 5 mg once daily is new for blood pressure control. A prescription has been sent to your pharmacy. All other medications remain the same. Home health services have been requested Total Time Total Time Spent Total Time Spent (In Minutes): 45 minutes. Total time included patient exam, discharge planning, medication reconciliation. Coding Level of Care Code 92068 INP/OBS DISCH >30 MIN Diagnoses Hypertensive urgency I16.0 Chest pain R07.9 Acute hypoxic respiratory failure J96.01
== END 2025-03-18 13:18 | disposition home or self-care (01) | DRG 304 ==
LOC: SUATTDRO → ED 19:57 → 4W 21:55